=== PATIENT | male | born 1980 | race Hispanic/Latino ===

== ENCOUNTER 2016-11-18 01:50 | Inpatient (IN) | payer MEDICAID, OTHER ==
[2016-11-18] MEDS ORDERED: Morphine 4 mg/ml ISec IVP STA (02:14)
[2016-11-18] MEDS ORDERED: Sodium Chloride 0.9% 1,000 ML IV STA (02:14)
[2016-11-18] MEDS ORDERED: Pantoprazole 40 MG in Sodium Chloride 0.9% 100 ML IV STA (02:14)
--- NOTE | 2016-11-18 02:24 | ED PDOC ---
Arrival/HPI - General Chief Complaint: Abdominal Pain Time Seen by Provider: 11/18/16 01:54 Historian: Patient - History of Present Illness Narrative History of Present Illness (Text): 11/18/16 02:23 Elodia Cooper is a 36 year old male who presents to the emergency department complaining of left upper quadrant abdominal pain associated with nausea for the past few hours. Admits to drinking alcohol last night. Denies fever, chills , headache, dizziness, chest pain, shortness of breath, vomiting, diarrhea, urinary symptoms, or any other complaints at this time. Symptom Onset: Gradual Severity Level: Mild Activities at Onset: Light Past Medical History - Provider Review Nursing Documentation Reviewed: Yes - Past History Past History: Non-Contributing - Infectious Disease Hx of Infectious Diseases: None - Psychiatric Hx Psychophysiologic Disorder: No Hx Depression: No Hx Emotional Abuse: No Hx Physical Abuse: No Hx Substance Use: No - Suicidal Assessment Feels Threatened In Home Enviroment: No Family/Social History - Physician Review Nursing Documentation Reviewed: Yes Family/Social History: No Known Family HX Smoking Status: Heavy Smoker > 10 Cigarettes Daily Hx Alcohol Use: Yes Hx Substance Use: No Hx Substance Use Treatment: No Allergies/Home Meds Allergies/Adverse Reactions: Allergies No Known Allergies Allergy (Verified 06/22/15 23:38) Home Medications: Home Meds Medication Instructions Recorded Confirmed No Known Home Med 11/18/16 11/18/16 Review of Systems - Physician Review All systems were reviewed & negative as marked: Yes - Review of Systems Constitutional: Normal. absent: Fatigue, Fevers Respiratory: Normal. absent: SOB, Cough, Sputum Cardiovascular: Normal. absent: Chest Pain, Palpitations Gastrointestinal: Abdominal Pain, Nausea. absent: Diarrhea, Vomiting Genitourinary Male: Normal Neurological: Normal. absent: Headache, Dizziness Psychiatric: Normal Physical Exam Vital Signs Reviewed: Yes Vital Signs Temp Pulse Resp BP Pulse Ox 11/18/16 05:50 98.2 F 80 20 104/73 98 11/18/16 04:00 82 18 142/84 99 11/18/16 02:05 97.9 F 89 18 138/88 99 11/18/16 01:56 97.9 F 89 18 138/88 99 Temperature: Afebrile Blood Pressure: Normal Pulse: Regular Respiratory Rate: Normal Appearance: Positive for: Well-Appearing, Non-Toxic, Comfortable Pain Distress: None Mental Status: Positive for: Alert and Oriented X 3 - Systems Exam Head: Present: Atraumatic, Normocephalic Pupils: Present: PERRL Conjunctiva: Present: Normal Mouth: Present: Moist Mucous Membranes Respiratory/Chest: Present: Clear to Auscultation, Good Air Exchange. No: Respiratory Distress, Accessory Muscle Use Cardiovascular: Present: Regular Rate and Rhythm, Normal S1, S2. No: Murmurs Abdomen: Present: Tenderness (left upper quadrant tenderness ), Normal Bowel Sounds. No: Distention, Peritoneal Signs, Rebound, Guarding Upper Extremity: Present: Normal Inspection. No: Cyanosis, Edema Lower Extremity: Present: Normal Inspection. No: Edema Neurological: Present: GCS=15, CN II-XII Intact, Speech Normal, Motor Func Grossly Intact, Normal Sensory Function Skin: Present: Warm, Dry, Normal Color. No: Rashes Psychiatric: Present: Alert, Oriented x 3 Medical Decision Making ED Course and Treatment: 11/18/16 02:26 Impression: A 36 year old male who presents to the emergency department complaining of left upper quadrant abdominal pain. Admits to drinking alcohol last night. Plan: -- EKG -- CT abdomen pelvis -- Labs, cardiac enzymes -- Alcohol level -- Morphine -- Protonix -- IV fluids -- Zofran -- Blood culture -- Urinalysis -- Reassess and disposition Progress Notes: 11/18/16 03:27 EKG reviewed by me: NSR @75 bpm. T wave abnormality, consider anterior ischemia. Prolonged QT. CT Abdomen and Pelvis results reviewed FINDINGS: Lower thorax: Minimal atelectasis/scarring. ABDOMEN: Liver: Enlarged, 20 cm. Fatty infiltration. Gallbladder and bile ducts: No calcified stones. No ductal dilation. Pancreas: [id number] stranding/fluid about pancreas. No discrete peripancreatic collection. No ductal dilation. Spleen: No splenomegaly. Adrenals: No mass. Kidneys and ureters: No renal calculi. No hydronephrosis. Stomach and bowel: Underdistention of LEFT colon. No definite mural thickening. Few minimally distended loops of small bowel, likely ileus. Appendix: Normal caliber. No inflammation. PELVIS: Bladder: Unremarkable. No stones. Reproductive: Unremarkable as visualized. ABDOMEN and PELVIS: Intraperitoneal space: No significant fluid collection. No free air. Bones/joints: No acute fracture. Soft tissues: Unremarkable. Vasculature: Minimal atherosclerotic disease of aorta. No aneurysm. Lymph nodes: No pathologically enlarged lymph nodes. IMPRESSION: 1. Acute pancreatitis. 2. Incidental/non-acute findings are described above. 11/18/16 04:26 Case discussed with who is aware and agrees with the plan to admit patient to telemetry for pancreatitis. Accepts pt under hospitalist service. - Lab Interpretations Lab Results: 11/18/16 02:35 11/18/16 02:35 Lab Results 11/18/16 02:35: TSH 3rd Generation 8.6 H 11/18/16 02:35: Phosphorus 4.5, Magnesium 1.7, Triglycerides 277 H, Cholesterol 259 H, LDL Cholesterol Direct 206 H, HDL Cholesterol 32 11/18/16 02:35: Alcohol, Quantitative 267 H 11/18/16 02:35: pO2 77 H, VBG pH 7.40, VBG pCO2 44.0, VBG HCO3 27.3, VBG Total CO2 28.7 H, VBG O2 Sat (Calc) 97.5 H, VBG Base Excess 1.9, VBG Potassium 4.4, Sodium 139.0, Chloride 105.0, Glucose 149 H, Lactate 1.8, FiO2 21.0, Venous Blood Potassium 4.4 11/18/16 02:35: Sodium 140, Chloride 100, Potassium 3.4 L, Carbon Dioxide 28, Anion Gap 15, BUN 6 L, Creatinine 0.7, Est GFR ( Amer) > 60, Est GFR (Non -Af Amer) > 60, Random Glucose 156 H, Calcium 9.0, Total Bilirubin 2.1 H, AST 524 H, ALT 243 H, Alkaline Phosphatase 294 H, Lactate Dehydrogenase 767 H, Total Creatine Kinase 104, Troponin I < 0.01, Total Protein 8.0, Albumin 4.1, Globulin 3.9, Albumin/Globulin Ratio 1.1, Amylase 1594 H, Lipase 89793 H 11/18/16 02:35: PT 12.2 H, INR 1.13 H, APTT 25.4 11/18/16 02:35: WBC 7.5, RBC 4.50, Hgb 15.9, Hct 45.2, MCV 100.4, MCH 35.3 H, MCHC 35.2, RDW 13.1, Plt Count 149, MPV 10.5, Gran % 47.5 L, Lymph % (Auto) 45.3 H, [place] % (Auto) 6.2 H, Eos % (Auto) 0.9 L, Baso % (Auto) 0.1, Gran # 3.57 , Lymph # 3.4, [place] # 0.5, Eos # 0.1, Baso # 0.01 I have reviewed the lab results: Yes - RAD Interpretation Radiology Orders: 11/18/16 02:14 ABD & PELVIS W/O PO OR IV CONT [CT] Stat Truck Manager: Radiologist - EKG Interpretation Interpreted by ED Physician: Yes Type: 12 lead EKG - Medication Orders Current Medication Orders: Acetaminophen (Tylenol 325mg Tab) 650 mg PO Q6H PRN PRN Reason: Fever >100.4 F Last Admin: 11/18/16 19:49 Dose: 650 mg Famotidine (Pepcid 20mg/50ml Premix) 20 mg in 50 mls @ 100 mls/hr IV Q12 FÉLIX Last Admin: 11/18/16 10:42 Dose: 100 mls/hr Lactated Ringer's (Lactated Ringer's) 1,000 mls @ 125 mls/hr IV .Q8H FÉLIX Stop: 11/18/16 21:00 Last Admin: 11/18/16 19:49 Dose: 125 mls/hr Lorazepam (Ativan) 4 mg IVP Q4H PRN; Protocol PRN Reason: Withdrawal Pantoprazole Sodium (Protonix Inj) 40 mg IVP DAILY FÉLIX Last Admin: 11/18/16 10:43 Dose: 40 mg Thiamine HCl (Vitamin B1 Inj) 100 mg IV DAILY FÉLIX Last Admin: 11/18/16 10:43 Dose: 100 mg Vitamin B Complex/Vit C/Folic Acid (Nephro-Sanjuanita) 1 tab PO DAILY FÉLIX Last Admin: 11/18/16 10:41 Dose: 1 tab Discontinued Medications Pantoprazole Sodium 40 mg/ (Sodium Chloride) 100 mls @ 400 mls/hr IV STAT STA Stop: 11/18/16 02:28 Last Admin: 11/18/16 03:55 Dose: 400 mls/hr Sodium Chloride (Sodium Chloride 0.9%) 1,000 mls @ 100 mls/hr IV .Q10H STA Stop: 11/18/16 12:13 Last Admin: 11/18/16 02:53 Dose: 100 mls/hr Potassium Chloride (Potassium Chloride 20 Meq/100 Ml) 20 meq in 100 mls @ 50 mls/hr IVPB ONCE ONE Stop: 11/18/16 05:23 Last Admin: 11/18/16 04:07 Dose: 50 mls/hr Lactated Ringer's (Lactated Ringer's) 1,000 mls @ 300 mls/hr IV .Q3H20M FÉLIX Stop: 11/18/16 10:00 Last Admin: 11/18/16 17:25 Dose: Potassium Chloride (Potassium Chloride 20 Meq/100 Ml) 20 meq in 100 mls @ 50 mls/hr IVPB ONCE ONE Stop: 11/18/16 07:36 Last Admin: 11/18/16 06:26 Dose: 50 mls/hr Magnesium Sulfate/Dextrose (Magnesium Sulfate 1 Gm/100 Ml D5w) 1 gm in 100 mls @ 100 mls/hr IVPB ONCE ONE Stop: 11/18/16 06:40 Last Admin: 11/18/16 13:02 Dose: 100 mls/hr Lorazepam (Ativan) 2 mg PO Q4H [facility] PRN Reason: Protocol Last Admin: 11/18/16 04:21 Dose: 2 mg Re-Assess: Reassess Psych Meds Document 11/18/16 05:21 TERA (Rec: 11/18/16 10:44 TERA [id number]) Reassess Psych Med Effective Morphine Sulfate (Morphine) 4 mg IVP STAT STA Stop: 11/18/16 02:15 Last Admin: 11/18/16 02:52 Dose: 4 mg Re-Assess: MAR Pain Assessment Document 11/18/16 03:52 TERA (Rec: 11/18/16 14:00 TERA [id number]) Pain Reassessment Is this a pain reassessment? Yes Sleep Is patient sleeping during reassessment? No Presence of Pain Presence of Pain No Ondansetron HCl (Zofran Inj) 4 mg IVP STAT STA Stop: 11/18/16 02:15 Last Admin: 11/18/16 02:53 Dose: 4 mg Pneumococcal Polyvalent Vaccine (Pneumovax 23 Vaccine) 0.5 ml IM .ONCE ONE Stop: 11/18/16 12:50 Thiamine HCl (Vitamin B1 Inj) 100 mg IM STAT STA Stop: 11/18/16 03:44 Last Admin: 11/18/16 04:07 Dose: 100 mg - Danuta Statement The provider has reviewed the documentation as recorded by the Danuta Ramirez Provider Attestation: All medical record entries made by the Danuta were at my direction and personally dictated by me. I have reviewed the chart and agree that the record accurately reflects my personal performance of the history, physical exam, medical decision making, and the department course for this patient. I have also personally directed, reviewed, and agree with the discharge instructions and disposition. Disposition/Present on Arrival - Present on Arrival Any Indicators Present on Arrival: No History of DVT/PE: No History of Uncontrolled Diabetes: No Urinary Catheter: No History of Decub. Ulcer: No History Surgical Site Infection Following: None - Disposition Have Diagnosis and Disposition been Completed?: Yes Diagnosis: Alcohol abuse, Pancreatitis, acute Disposition: HOSPITALIZED Disposition Time: 03:35 Condition: FAIR
[2016-11-18 02:45] LABS: ADD MANUAL DIFF? NO
[2016-11-18 02:54] LABS: BASO # 0.01 K/mm3 (0.0-2.0); BASO % 0.1 % (0.0-3.0); EOS # 0.1 (0.0-0.7); EOS % 0.9 % (1.5-5.0); GRAN # 3.57 (1.4-6.5); GRAN % 47.5 % (50.0-68.0); HEMATOCRIT 45.2 % (42.0-52.0); LYMPH # 3.4 (1.2-3.4); LYMPH % 45.3 % (22.0-35.0); MEAN CELL VOLUME 100.4 fL (80.0-105.0); MEAN CORPUSCULAR HEMOGLOBIN 35.3 pg (25.0-35.0); MEAN CORPUSCULAR HGB CONC 35.2 g/dl (31.0-37.0); MEAN PLATELET VOLUME 10.5 fl (7.0-11.0); MONO # 0.5 (0.1-0.6); MONO % 6.2 % (1.0-6.0); PLATELET COUNT 149 10^3/uL (120.0-450.0); RED CELL DISTRIBUTION WIDTH 13.1 % (11.5-14.5); WHITE BLOOD COUNT 7.5 10^3/ul (4.5-11.0)
[2016-11-18 02:57] LABS: VENOUS BLOOD GAS BASE EXCESS 1.9 mmol/L (0.0-2.0)
[2016-11-18 03:05] LABS: INR 1.13 (0.93-1.08); PARTIAL THROMBOPLASTIN TIME 25.4 Seconds (23.7-30.8)
[2016-11-18 03:11] LABS: ALB/GLOB RATIO 1.1 (1.1-1.8); ALKALINE PHOSPHATASE 294 U/L (38-133); ALT/SGPT 243 U/L (7-56); AST/SGOT 524 U/L (15-59); BILIRUBIN,TOTAL 2.1 mg/dL (0.2-1.3); BLOOD UREA NITROGEN 6 mg/dL (7-21); CARBON DIOXIDE 28 mmol/L (21-33); CHLORIDE 100 mmol/L (98-107); GFR AFRICAN-AMERICAN > 60; GLUCOSE,RANDOM 156 mg/dL (70-110); POTASSIUM 3.4 mmol/L (3.6-5.0); SODIUM 140 mmol/L (132-148)
[2016-11-18 03:23] LABS: AMYLASE 1594 U/L (35-125); TROPONIN I < 0.01 ng/mL
--- NOTE | 2016-11-18 03:32 | CT ---
EXAM: CT Abdomen and Pelvis Without Intravenous Contrast CLINICAL HISTORY: 36 years old, male; Pain; Abdominal pain; Generalized; Additional info: Abd pain TECHNIQUE: Axial computed tomography images of the abdomen and pelvis without intravenous contrast. This CT exam was performed using one or more of the following dose reduction techniques: automated exposure control, adjustment of the mA and/or kV according to patient size, and/or use of iterative reconstruction technique. Coronal and sagittal reformatted images were created and reviewed. COMPARISON: No relevant prior studies available. FINDINGS: Lower thorax: Minimal atelectasis/scarring. ABDOMEN: Liver: Enlarged, 20 cm. Fatty infiltration. Gallbladder and bile ducts: No calcified stones. No ductal dilation. Pancreas: [id number] stranding/fluid about pancreas. No discrete peripancreatic collection. No ductal dilation. Spleen: No splenomegaly. Adrenals: No mass. Kidneys and ureters: No renal calculi. No hydronephrosis. Stomach and bowel: Underdistention of LEFT colon. No definite mural thickening. Few minimally distended loops of small bowel, likely ileus. Appendix: Normal caliber. No inflammation. PELVIS: Bladder: Unremarkable. No stones. Reproductive: Unremarkable as visualized. ABDOMEN and PELVIS: Intraperitoneal space: No significant fluid collection. No free air. Bones/joints: No acute fracture. Soft tissues: Unremarkable. Vasculature: Minimal atherosclerotic disease of aorta. No aneurysm. Lymph nodes: No pathologically enlarged lymph nodes. IMPRESSION: 1. Acute pancreatitis. 2. Incidental/non-acute findings are described above.
[2016-11-18 03:43] LABS: LIPASE 15899 U/L (23-300)
[2016-11-18] MEDS ORDERED: Thiamine 100 mg/ml Inj IM STA (03:43)
--- NOTE | 2016-11-18 04:04 | CP.PCM.HP ---
<CesarZurdo azar - Last Filed: 11/18/16 05:42> History of Present Illness - History of Present Illness History of Present Illness: This patient is a 36yo La[place] M w/ no PMhx (hasn't been to a doctor in many years) who is presenting to the hospital with a 1d history of acute abdominal pain. The pain started after he drank 500ml of vodka; which he has been drinking this amount for the past 4 years. The patient states he has never had withdrawal seizures or shakes when he hasn't drank, although he cannot remember a day he has not drank in the past 4 years either. He denies fevers/chills, DURBIN, CP, dysuria/freq/urg, or lower extremity pain/swelling. Admits to abdominal pain , nausea. No vomiting. no diarrhea. FamHx: denies Social: Daily drinker 500ml vodka, 1-2 packs per day since 15yrs Surgeries: denies Allergies: denies Meds: Denies In the ED a cat scan was done that showed acute pancreatitis; amylase was 1500. He was bolused 1L NS and kept NPO. He will be admitted to telemetry. Present on Admission - Present on Admission Any Indicators Present on Admission: No History of DVT/PE: No History of Uncontrolled Diabetes: No Urinary Catheter: No Decubitus Ulcer Present: No Review of Systems - Review of Systems All systems: reviewed and no additional remarkable complaints except Past Patient History - Infectious Disease Hx of Infectious Diseases: None - Past Social History Smoking Status: Heavy Smoker > 10 Cigarettes Daily - PSYCHIATRIC Hx Psychophysiologic Disorder: No Hx Depression: No Hx Emotional Abuse: No Hx Physical Abuse: No Hx Substance Use: No - SURGICAL HISTORY Hx Surgeries: No Meds Allergies/Adverse Reactions: Allergies Allergy/AdvReac Type Severity Reaction Status Date / Time No Known Allergies Allergy Verified 06/22/15 23:38 Physical Exam - Constitutional Additional comments: smells of alcohol, unkempt, answering questions appropriately - Head Exam Head Exam: ATRAUMATIC - Eye Exam Eye Exam: Conjunctival injection, EOMI - ENT Exam ENT Exam: Mucous Membranes Moist - Neck Exam Neck exam: Positive for: Full Rom. Negative for: Lymphadenopathy - Respiratory Exam Respiratory Exam: Clear to Auscultation Bilateral, NORMAL BREATHING PATTERN. absent: Rales, Rhonchi, Wheezes - Cardiovascular Exam Cardiovascular Exam: REGULAR RHYTHM, +S1, +S2 - GI/Abdominal Exam GI & Abdominal Exam: Normal Bowel Sounds, Soft, Tenderness (in the epigastrium) . absent: Organomegaly, Pulsatile Mass - Extremities Exam Extremities exam: Negative for: calf tenderness - Back Exam Back exam: NORMAL INSPECTION. absent: CVA tenderness (L), CVA tenderness (R) - Neurological Exam Neurological exam: Alert, Oriented x3 - Psychiatric Exam Psychiatric exam: Normal Affect, Normal Mood - Skin Skin Exam: Dry Results - Vital Signs Recent Vital Signs: Last Vital Signs Temp 97.9 F 11/18/16 02:05 Pulse 89 11/18/16 02:05 Resp 18 11/18/16 02:05 BP 138/88 11/18/16 02:05 Pulse Ox 99 11/18/16 02:05 - Labs Result Diagrams: 11/18/16 02:35 11/18/16 02:35 Labs: Laboratory Results - last 24 hr 11/18/16 11/18/16 11/18/16 02:35 02:35 02:35 WBC 7.5 RBC 4.50 Hgb 15.9 Hct 45.2 MCV 100.4 MCH 35.3 H MCHC 35.2 RDW 13.1 Plt Count 149 MPV 10.5 Gran % 47.5 L Lymph % (Auto) 45.3 H [place] % (Auto) 6.2 H Eos % (Auto) 0.9 L Baso % (Auto) 0.1 Gran # 3.57 Lymph # 3.4 [place] # 0.5 Eos # 0.1 Baso # 0.01 PT 12.2 H INR 1.13 H APTT 25.4 pO2 VBG pH VBG pCO2 VBG HCO3 VBG Total CO2 VBG O2 Sat (Calc) VBG Base Excess VBG Potassium Sodium 140 Chloride 100 Glucose Lactate FiO2 Potassium 3.4 L Carbon Dioxide 28 Anion Gap 15 BUN 6 L Creatinine 0.7 Est GFR ( Amer) > 60 Est GFR (Non-Af Amer) > 60 Random Glucose 156 H Calcium 9.0 Total Bilirubin 2.1 H AST 524 H ALT 243 H Alkaline Phosphatase 294 H Lactate Dehydrogenase 767 H Total Creatine Kinase 104 Troponin I < 0.01 Total Protein 8.0 Albumin 4.1 Globulin 3.9 Albumin/Globulin Ratio 1.1 Amylase 1594 H Lipase 60447 H Venous Blood Potassium Alcohol, Quantitative 06/07/17 06/07/17 02:35 02:35 WBC RBC Hgb Hct MCV MCH MCHC RDW Plt Count MPV Gran % Lymph % (Auto) [place] % (Auto) Eos % (Auto) Baso % (Auto) Gran # Lymph # [place] # Eos # Baso # PT INR APTT pO2 77 H VBG pH 7.40 VBG pCO2 44.0 VBG HCO3 27.3 VBG Total CO2 28.7 H VBG O2 Sat (Calc) 97.5 H VBG Base Excess 1.9 VBG Potassium 4.4 Sodium 139.0 Chloride 105.0 Glucose 149 H Lactate 1.8 FiO2 21.0 Potassium Carbon Dioxide Anion Gap BUN Creatinine Est GFR ( Amer) Est GFR (Non-Af Amer) Random Glucose Calcium Total Bilirubin AST ALT Alkaline Phosphatase Lactate Dehydrogenase Total Creatine Kinase Troponin I Total Protein Albumin Globulin Albumin/Globulin Ratio Amylase Lipase Venous Blood Potassium 4.4 Alcohol, Quantitative 267 H Assessment & Plan - Assessment and Plan (Free Text) Assessment: 36yo M admitted for Pancreatitis 2/2 EtOH consumption Pancreatitis 2/2 to EtOH consumption -NPO -LR at 300ml until 10am; 125ml/hr afterwords -VSS; no signs of withdrawal at this point -EtOH level 270; Lipase 15,000 -f/u abdominal ultrasound Inevitable EtOH withdrawal -CIWA protocol -Ativan 4mg Q4H PRN and FÉLIX IV for CIWA -Thiamine/Folate/Multivitamin daily Proph -Protonix -SCDs Case Discussed and seen with Dr. Mina Pal PGY1 Night Float Decision To Admit - Pt Status Changed To: Hospital Disposition Of: Inpatient Admission - Admit Certification Admit to Inpatient:: After my assessment, the patient will require hospitalization for at least two midnights. This is because of the severity of symptoms shown, intensity of services needed, and/or the medical risk in this patient being treated as an outpatient. - . Bed Request Type: Telemetry Admitting Physician: Felipe Enriquez <Felipe Enriquez - Last Filed: 11/30/16 20:48> Results - Vital Signs Recent Vital Signs: Last Vital Signs Temp 100 F H 11/20/16 08:16 Pulse 107 H 11/20/16 08:16 Resp 20 06/09/17 08:16 BP 139/103 H 11/20/16 08:16 Pulse Ox 96 11/20/16 08:16 - Labs Result Diagrams: 11/20/16 06:30 11/20/16 05:30 Attending/Attestation - Attestation I have personally seen and examined this patient.: Yes I have fully participated in the care of the patient.: Yes I have reviewed all pertinent clinical information: Yes
[2016-11-18] MEDS: Lactated Ringer's 1,000 ML IV SCH ×4 (04:08→19:49)
[2016-11-18 04:50] LABS: MAGNESIUM 1.7 mg/dL (1.7-2.2); PHOSPHOROUS 4.5 mg/dL (2.5-4.5)
[2016-11-18] MEDS ORDERED: Magnesium Sulfate 1 gm in D5W 1 GM/100 ML BAG IVPB ONE (05:41)
--- NOTE | 2016-11-18 08:33 | RAD ---
HISTORY: cp COMPARISON: No prior. FINDINGS: LUNGS: No active pulmonary disease. There is deformity of the left ribs consistent with prior left thoracotomy PLEURA: No interval significant pleural effusion identified, no pneumothorax apparent. The right hemidiaphragm is asymmetrically elevated CARDIOVASCULAR: Top-normal heart size OSSEOUS STRUCTURES: No significant abnormalities. VISUALIZED UPPER ABDOMEN: Normal. OTHER FINDINGS: None. IMPRESSION: Left rib cage postsurgical changes- prior thoracotomy inferred -correlate clinically in this 36-year-old patient. No acute cardiopulmonary pathology appreciated
[2016-11-18] MEDS: Multivitamin Vitamin B Complex (Nephro-Vite) Tab PO SCH (10:41)
[2016-11-18] MEDS: Famotidine 20mg/50ml 20 MG/50 ML BAG IV SCH ×2 (10:42→21:09)
[2016-11-18] MEDS: Thiamine 100 mg/ml Inj IV SCH (10:43)
--- NOTE | 2016-11-18 11:32 | US ---
HISTORY: abdominal pain COMPARISON: None. TECHNIQUE: Sonographic evaluation of the abdomen. FINDINGS: LIVER: Measures 21 by 12 x 13 cm. Diffuse increased echogenicity of the liver parenchyma. No mass. No intrahepatic bile duct dilatation. GALLBLADDER: Unremarkable. No gallstones. COMMON BILE DUCT: Measures 6 mm. No stones. No dilatation. PANCREAS: The head and body are nonvisualized. Prominent bowel gas apparent unremarkable a pancreatic tail-small segment RIGHT KIDNEY: Measures 12.5 x 5.6 x 5.9cm. Normal echogenicity. No calculus, mass, or hydronephrosis. LEFT KIDNEY: Measures 11.9 x 6.0 x 5.2cm. Normal echogenicity. No calculus, mass, or hydronephrosis. SPLEEN: Top normal splenic size 14.2 cm x 6.3 x 5.5 cm . No mass. AORTA: Not visualized -obscuring bowel gas IVC: Not visualized obscuring bowel gas OTHER FINDINGS: None. IMPRESSION: Hepatomegaly with diffuse fatty infiltration. No liver lesions or dilated ducts appreciated. Nonvisualized pancreatic head and body. Nonvisualized aorta and IVC. Prominent obscuring bowel gas
[2016-11-18 12:19] LABS: ALB/GLOB RATIO 1.1 (1.1-1.8); ALKALINE PHOSPHATASE 274 U/L (38-133); ALT/SGPT 224 U/L (7-56); AST/SGOT 386 U/L (15-59); BILIRUBIN,TOTAL 2.4 mg/dL (0.2-1.3); BLOOD UREA NITROGEN 5 mg/dL (7-21); CALCIUM 8.9 mg/dL (8.4-10.5); CARBON DIOXIDE 23 mmol/L (21-33); CHLORIDE 103 mmol/L (95-110); GFR AFRICAN-AMERICAN > 60; GLUCOSE,RANDOM 128 mg/dL (70-110); MAGNESIUM 1.2 mg/dL (1.7-2.2); POTASSIUM 4.2 mmol/L (3.6-5.0); SODIUM 138 mmol/L (132-148); TOTAL PROTEIN 7.9 g/dL (5.8-8.3)
[2016-11-18 12:28] LABS: HEMATOCRIT 44.5 % (42.0-52.0); MEAN CELL VOLUME 101.1 fL (80.0-105.0); MEAN CORPUSCULAR HGB CONC 34.6 g/dl (31.0-37.0); MEAN PLATELET VOLUME 10.7 fl (7.0-11.0); RED CELL DISTRIBUTION WIDTH 13.1 % (11.5-14.5); WHITE BLOOD COUNT 9.1 10^3/ul (4.5-11.0)
[2016-11-18 12:48] VITALS: BMI 26.4
[2016-11-18] MEDS ORDERED: Pneumococcal 23-Valent Vaccine IM ONE (12:49)
--- NOTE | 2016-11-18 15:28 | CARD ---
APPROVED REPORT EKG Measurement Heart [id number] <Conclusion> Normal sinus rhythm T wave abnormality, consider anterior ischemia Prolonged QT
[2016-11-18] MEDS ORDERED: Morphine 2 mg/ml ISec IVP ONE (23:27)
[2016-11-19 05:14] VITALS: RESP 20
[2016-11-19 08:48] LABS: ADD MANUAL DIFF? NO
[2016-11-19 08:53] LABS: EOS % 0.1 % (1.5-5.0); GRAN % 80.4 % (50.0-68.0); HEMATOCRIT 45.2 % (42.0-52.0); LYMPH # 1.1 (1.2-3.4); LYMPH % 11.4 % (22.0-35.0); MEAN CELL VOLUME 100.4 fL (80.0-105.0); MEAN CORPUSCULAR HEMOGLOBIN 34.7 pg (25.0-35.0); MEAN CORPUSCULAR HGB CONC 34.5 g/dl (31.0-37.0); MEAN PLATELET VOLUME 11.2 fl (7.0-11.0); MONO # 0.8 (0.1-0.6); MONO % 8.1 % (1.0-6.0); PLATELET COUNT 117 10^3/uL (120.0-450.0); RED CELL DISTRIBUTION WIDTH 12.9 % (11.5-14.5)
[2016-11-19] MEDS: Thiamine 100 mg/ml Inj IV SCH (09:28)
[2016-11-19] MEDS: Famotidine 20mg/50ml 20 MG/50 ML BAG IV SCH ×2 (09:29→22:54)
[2016-11-19] MEDS: Multivitamin Vitamin B Complex (Nephro-Vite) Tab PO SCH (09:30)
[2016-11-19 09:46] LABS: ALB/GLOB RATIO 1.1 (1.1-1.8); ALKALINE PHOSPHATASE 240 U/L (38-133); ALT/SGPT 144 U/L (7-56); AST/SGOT 181 U/L (15-59); BILIRUBIN,TOTAL 5.1 mg/dL (0.2-1.3); BLOOD UREA NITROGEN 6 mg/dL (7-21); CALCIUM 9.2 mg/dL (8.4-10.5); CARBON DIOXIDE 27 mmol/L (21-33); CHLORIDE 96 mmol/L (95-110); GFR AFRICAN-AMERICAN > 60; GLUCOSE,RANDOM 115 mg/dL (70-110); MAGNESIUM 1.4 mg/dL (1.7-2.2); PHOSPHOROUS 2.9 mg/dL (2.5-4.5); POTASSIUM 3.8 mmol/L (3.6-5.0); SODIUM 132 mmol/L (132-148); TOTAL PROTEIN 7.5 g/dL (5.8-8.3)
[2016-11-19] MEDS ORDERED: POLYETHYLENE GLYCOL 3350 17 GM/Dose PACKET PO ONE (12:32)
[2016-11-19 14:15] LABS: URINE BILIRUBIN LARGE (NEGATIVE); URINE BLOOD TRACE-LYSED (NEGATIVE); URINE GLUCOSE (UA) NEGATIVE (NEGATIVE); URINE KETONE 15 mg/dL (NEGATIVE); URINE LEUKOCYTE ESTERASE NEGATIVE Leu/uL (NEGATIVE); URINE PROTEIN 100 mg/dL (<30 mg/dL); URINE UROBILINOGEN >=8.0 E.U./dL (<1 E.U./dL)
[2016-11-19 14:16] LABS: URINE APPEARANCE SL CLOUDY (CLEAR); URINE COLOR BROWN (YELLOW)
[2016-11-19 14:20] LABS: URINE RBC 0 - 2 /hpf (0-2); URINE WBC NEGATIVE /hpf (0-6)
--- NOTE | 2016-11-19 15:33 | CP.PCM.PN ---
<RejiJah - Last Filed: 11/19/16 15:35> Subjective - Date & Time of Evaluation Date of Evaluation: 11/19/16 Time of Evaluation: 11:00 - Subjective Subjective: Pt was seen and examined at bedside. No acute complaints at this time. He denies abdominal pains, he is tolerating po intake and would like to eat regular food. He also noted mild lower abdominal pain, suprapubic in nature localized non-radiating. Pt otherwise has no complaints. Pt denied fever, chills , sob, chest pains, abdominal pains, n/v/d/c or urinary symptoms. Objective - Vital Signs/Intake and Output Vital Signs (last 24 hours): Temp Pulse Resp BP Pulse Ox 97.8 F 72 20 127/90 97 11/19/16 12:00 11/19/16 12:00 11/19/16 12:00 11/19/16 12:00 11/19/16 05:13 Intake and Output: 11/19/16 11/19/16 06:59 18:59 Intake Total 2275 Output Total 2250 Balance 25 - Medications Medications: Current Medications Acetaminophen (Tylenol 325mg Tab) 650 mg PO Q6H PRN PRN Reason: Fever >100.4 F Last Admin: 11/19/16 04:03 Dose: 650 mg Docusate Sodium (Colace) 100 mg PO BID FÉLIX Famotidine (Pepcid 20mg/50ml Premix) 20 mg in 50 mls @ 100 mls/hr IV Q12 FÉLIX Last Admin: 11/19/16 09:29 Dose: 100 mls/hr Lorazepam (Ativan) 4 mg IVP Q4H PRN; Protocol PRN Reason: Withdrawal Pantoprazole Sodium (Protonix Inj) 40 mg IVP DAILY FÉLIX Last Admin: 11/19/16 09:29 Dose: 40 mg Thiamine HCl (Vitamin B1 Inj) 100 mg IV DAILY FÉLIX Last Admin: 11/19/16 09:28 Dose: 100 mg Vitamin B Complex/Vit C/Folic Acid (Nephro-Sanjuanita) 1 tab PO DAILY FÉLIX Last Admin: 11/19/16 09:30 Dose: 1 tab - Labs Labs: 11/19/16 08:10 11/19/16 08:00 PT 12.2 Seconds (9.9-11.8) H 11/18/16 02:35 INR 1.13 (0.93-1.08) H 11/18/16 02:35 APTT 25.4 Seconds (23.7-30.8) 11/18/16 02:35 - Constitutional Appears: No Acute Distress - Head Exam Head Exam: ATRAUMATIC, NORMAL INSPECTION, NORMOCEPHALIC - Eye Exam Eye Exam: EOMI, Normal appearance, PERRL Pupil Exam: NORMAL ACCOMODATION, PERRL - ENT Exam ENT Exam: Mucous Membranes Moist, Normal Exam - Neck Exam Neck Exam: Full ROM, Normal Inspection. absent: Lymphadenopathy - Respiratory Exam Respiratory Exam: Clear to Ausculation Bilateral, NORMAL BREATHING PATTERN - Cardiovascular Exam Cardiovascular Exam: REGULAR RHYTHM, +S1, +S2. absent: Murmur - GI/Abdominal Exam GI & Abdominal Exam: Soft, Tenderness, Normal Bowel Sounds Additional comments: suprapubic - Extremities Exam Extremities Exam: Full ROM, Normal Capillary Refill, Normal Inspection. absent : Joint Swelling, Pedal Edema - Back Exam Back Exam: NORMAL INSPECTION - Neurological Exam Neurological Exam: Alert, Awake, CN II-XII Intact, Normal Gait, Oriented x3 - Psychiatric Exam Psychiatric exam: Normal Affect, Normal Mood - Skin Skin Exam: Dry, Intact, Normal Color, Warm Assessment and Plan - Assessment and Plan (Free Text) Assessment: 36 M admitted for Pancreatitis 2/2 EtOH consumption 1. Pancreatitis 2/2 to EtOH consumption - aggressive fluids and bowel rest upon admission, now no longer experiencing pain - Tolerated CLD will advance as tolerated 2. ETOH abuse -VSS; no signs of withdrawal at this point -EtOH level 270; Lipase 15,000 -f/u abdominal ultrasound -CIWA protocol -Ativan 4mg Q4H PRN and FÉLIX IV for CIWA, pt has not required any ativan so far -Thiamine/Folate/Multivitamin daily 3. suprapubic tenderness - no dysuria - UA to r/o UTI - fu results Proph -Protonix -SCDs seen reviewed and discussed with attending <Lior Solis - Last Filed: 11/20/16 17:27> Objective - Vital Signs/Intake and Output Vital Signs (last 24 hours): Temp Pulse Resp BP Pulse Ox 100 F H 107 H 20 139/103 H 96 11/20/16 08:16 11/20/16 08:16 11/20/16 08:16 11/20/16 08:16 11/20/16 08:16 Intake and Output: 11/20/16 11/20/16 06:59 18:59 Intake Total 0 925 Balance 0 925 - Labs Labs: 11/20/16 06:30 11/20/16 05:30 PT 12.2 Seconds (9.9-11.8) H 11/18/16 02:35 INR 1.13 (0.93-1.08) H 11/18/16 02:35 APTT 25.4 Seconds (23.7-30.8) 11/18/16 02:35 Attending/Attestation - Attestation I have personally seen and examined this patient.: Yes I have fully participated in the care of the patient.: Yes I have reviewed all pertinent clinical information, including history, physical exam and plan: Yes Notes (Text): I have seen and examined patient at bedside. This is 36 year old male with history of alcohol abuse who got admitted for pancreatitis most likely alcohol induced. Abdominal ultrasound pending. Lipase is elevated. TG level pending. Abdominal pain is slightly better now. Will start clear liquid diet. Start ativan prn for withdrawal. Complains of suprapubuc pain. Will order urinalysis. Upon discharge patient will follow up in [facility] clinic. Dr Lior Solis.
[2016-11-20 06:56] LABS: ADD MANUAL DIFF? NO
[2016-11-20 07:11] LABS: BASO # 0.01 K/mm3 (0.0-2.0); BASO % 0.1 % (0.0-3.0); EOS % 0.1 % (1.5-5.0); GRAN # 7.69 (1.4-6.5); GRAN % 73.6 % (50.0-68.0); HEMATOCRIT 43.2 % (42.0-52.0); LYMPH # 1.6 (1.2-3.4); LYMPH % 15.3 % (22.0-35.0); MEAN CELL VOLUME 100.5 fL (80.0-105.0); MEAN CORPUSCULAR HEMOGLOBIN 35.6 pg (25.0-35.0); MEAN CORPUSCULAR HGB CONC 35.4 g/dl (31.0-37.0); MEAN PLATELET VOLUME 11.8 fl (7.0-11.0); MONO # 1.1 (0.1-0.6); MONO % 10.9 % (1.0-6.0); PLATELET COUNT 121 10^3/uL (120.0-450.0); WHITE BLOOD COUNT 10.5 10^3/ul (4.5-11.0)
[2016-11-20 07:43] LABS: ALKALINE PHOSPHATASE 218 U/L (38-133); ALT/SGPT 109 U/L (7-56); AST/SGOT 113 U/L (15-59); BILIRUBIN,TOTAL 5.9 mg/dL (0.2-1.3); BLOOD UREA NITROGEN 9 mg/dL (7-21); CALCIUM 9.4 mg/dL (8.4-10.5); CARBON DIOXIDE 27 mmol/L (21-33); CHLORIDE 93 mmol/L (95-110); GFR AFRICAN-AMERICAN > 60; GLUCOSE,RANDOM 104 mg/dL (70-110); MAGNESIUM 1.5 mg/dL (1.7-2.2); PHOSPHOROUS 3.3 mg/dL (2.5-4.5); POTASSIUM 3.5 mmol/L (3.6-5.0); SODIUM 131 mmol/L (132-148); TOTAL PROTEIN 7.6 g/dL (5.8-8.3)
[2016-11-20 08:17] VITALS: BP 139/103; PULSE 107; TEMP 100; O2SAT 96
[2016-11-20] MEDS ORDERED: Potassium Chloride 20 mEq ER Tab PO STA (09:55)
[2016-11-20] MEDS ORDERED: Magnesium Oxide 400 mg Tab UD PO SCH (10:00)
[2016-11-20] MEDS ORDERED: POLYETHYLENE GLYCOL 3350 17 GM/Dose PACKET PO SCH (10:00)
[2016-11-20] MEDS ORDERED: Simethicone 40 mg/0.6 ml Liquid (30 ml) PO SCH (10:00)
[2016-11-20] MEDS: Multivitamin Vitamin B Complex (Nephro-Vite) Tab PO SCH (10:16)
[2016-11-20] MEDS: Famotidine 20mg/50ml 20 MG/50 ML BAG IV SCH (10:22)
[2016-11-20] MEDS: Thiamine 100 mg/ml Inj IV SCH (10:24)
== END 2016-11-20 16:48 | disposition home or self-care (01) | DRG 439 ==
LOC: ED 01:50 → ERH 03:34 → 2RSO 06:00 → 3RNO 11-19 22:13
PROVIDERS: ADMIT Hospitalist; ATTEND Hospitalist
DX: K85.20 Alcohol induced acute pancreatitis without necrosis or infection (principal); F10.239 Alcohol dependence with withdrawal, unspecified; Y90.8 Blood alcohol level of 240 mg/100 ml or more; F17.210 Nicotine dependence, cigarettes, uncomplicated

== ENCOUNTER 2017-08-06 20:22 | Inpatient (IN) | payer MEDICAID, OTHER ==
[2017-08-06] MEDS ORDERED: Sodium Chloride 0.9% 1,000 ML IV STA (20:38)
[2017-08-06 20:39] VITALS: BMI 24.2
[2017-08-06 21:10] LABS: BASO # 0.01 K/mm3 (0.0-2.0); BASO % 0.1 % (0.0-3.0); EOS % 0.3 % (1.5-5.0); GRAN # 8.26 (1.4-6.5); GRAN % 70.8 % (50.0-68.0); HEMOGLOBIN 17.8 g/dL (14.0-18.0); LYMPH # 2.5 (1.2-3.4); LYMPH % 21.8 % (22.0-35.0); MEAN CELL VOLUME 98.2 fl (80.0-105.0); MEAN CORPUSCULAR HGB CONC 35.7 g/dl (31.0-37.0); MEAN PLATELET VOLUME 10.3 fl (7.0-11.0); MONO # 0.8 (0.1-0.6); RBC 5.08 10^6/uL (3.5-6.1); RED CELL DISTRIBUTION WIDTH 13.1 % (11.5-14.5); WHITE BLOOD COUNT 11.7 10^3/ul (4.5-11.0)
[2017-08-06 21:19] LABS: ALB/GLOB RATIO 1.1 (1.1-1.8); ALBUMIN 4.5 g/dL (3.0-4.8); ALT/SGPT 188 U/L (7-56); AMYLASE 635 U/L (35-125); AST/SGOT 251 U/L (17-59); BLOOD UREA NITROGEN 9 mg/dL (7-21); CALCIUM 9.8 mg/dL (8.4-10.5); GFR AFRICAN-AMERICAN > 60; GFR NON-AFRICAN AMERICAN > 60
[2017-08-06 21:20] LABS: INR 1.24 (0.93-1.08); PARTIAL THROMBOPLASTIN TIME 33.2 Seconds (25.1-36.5); PROTHROMBIN TIME 14.2 SECONDS (9.4-12.5)
[2017-08-06] MEDS ORDERED: Morphine 2 mg/ml ISec IVP STA (21:33)
[2017-08-06 21:36] LABS: TROPONIN I < 0.01 ng/mL
[2017-08-06 21:53] LABS: LIPASE 3812 U/L (23-300)
--- NOTE | 2017-08-06 22:06 | ED PDOC ---
Arrival/HPI - General Chief Complaint: Abdominal Pain Time Seen by Provider: 08/06/17 20:29 Historian: Patient - History of Present Illness Narrative History of Present Illness (Text): 08/06/17 20:35 Elodia Cooper is a 37 year old male, whose past medical history includes pancreatitis and alcohol abuse, who presents to the Emergency department complaining of abdominal pain. Patient states he has been experiencing left- sided abdominal pain with associated nausea and vomiting today. Patient states he drinks alcohol on a daily basis. Patient denies any fever, chills, chest pain , shortness of breath, diarrhea, urinary symptoms, back pain, neck pain, headache, dizziness, or any other complaints. Time/Duration: Other (today) Symptom Onset: Gradual Symptom Course: Unchanged Activities at Onset: Light Context: Home Past Medical History - Provider Review Nursing Documentation Reviewed: Yes - Past History Past History: Non-Contributing - Infectious Disease Hx of Infectious Diseases: None - Integumentary Other/Comment: scratch ponce ble - Musculoskeletal/Rheumatological Hx Falls: No - Gastrointestinal Hx Gastrointestinal Disorders: Yes (gi bleed) - Psychiatric Hx Psychophysiologic Disorder: No Hx Depression: No Hx Emotional Abuse: No Hx Physical Abuse: No Hx Substance Use: No - Suicidal Assessment Feels Threatened In Home Enviroment: No Family/Social History - Physician Review Nursing Documentation Reviewed: Yes Family/Social History: Unknown Family HX Smoking Status: Heavy Smoker > 10 Cigarettes Daily Hx Alcohol Use: Yes Frequency of alcohol use: Daily Hx Substance Use: No Hx Substance Use Treatment: No Allergies/Home Meds Allergies/Adverse Reactions: Allergies No Known Allergies Allergy (Verified 06/22/15 23:38) Home Medications: Home Meds Medication Instructions Recorded Confirmed No Known Home Med 11/18/16 08/06/17 Review of Systems - Physician Review All systems were reviewed & negative as marked: Yes - Review of Systems Constitutional: Normal. absent: Fevers Eyes: Normal ENT: Normal Respiratory: Normal. absent: SOB, Cough Cardiovascular: Normal. absent: Chest Pain Gastrointestinal: Abdominal Pain, Nausea, Vomiting. absent: Diarrhea Genitourinary Male: Normal. absent: Dysuria, Frequency, Hematuria, Urinary Output Changes Musculoskeletal: Normal. absent: Back Pain, Neck Pain Skin: Normal. absent: Rash Neurological: Normal. absent: Headache, Dizziness Endocrine: Normal Hemo/Lymphatic: Normal Psychiatric: Normal Physical Exam Vital Signs Reviewed: Yes Vital Signs Temp Pulse Resp BP Pulse Ox 08/07/17 00:00 92 H 16 112/56 L 97 08/06/17 22:22 98 F 90 18 121/77 97 08/06/17 20:26 98.0 F 101 H 16 131/88 98 Temperature: Afebrile Blood Pressure: Normal Pulse: Regular Respiratory Rate: Normal Appearance: Positive for: Well-Appearing, Non-Toxic, Comfortable Pain Distress: None Mental Status: Positive for: Alert and Oriented X 3 - Systems Exam Head: Present: Atraumatic, Normocephalic Pupils: Present: PERRL Extroacular Muscles: Present: EOMI Conjunctiva: Present: Normal Mouth: Present: Moist Mucous Membranes Neck: Present: Normal Range of Motion Respiratory/Chest: Present: Clear to Auscultation, Good Air Exchange. No: Respiratory Distress, Accessory Muscle Use Cardiovascular: Present: Regular Rate and Rhythm, Normal S1, S2. No: Murmurs Abdomen: Present: Tenderness (LUQ tenderness), Normal Bowel Sounds. No: Distention, Peritoneal Signs Back: Present: Normal Inspection Upper Extremity: Present: Normal Inspection. No: Cyanosis, Edema Lower Extremity: Present: Normal Inspection. No: Edema Neurological: Present: GCS=15, CN II-XII Intact, Speech Normal Skin: Present: Warm, Dry, Normal Color. No: Rashes Psychiatric: Present: Alert, Oriented x 3, Normal Insight, Normal Concentration Medical Decision Making ED Course and Treatment: 08/06/17 20:35 Impression: 37 year old male complaining of left-sided abdominal pain and vomiting today. Differential Diagnosis included but are not limited to: pancreatitis vs. intractable abdominal pain Plan: -- CT Abdomen and Pelvis -- EKG -- Labs, cardiac enzymes, lipase, amylase -- Urinalysis -- IV fluids -- Zofran -- Protonix -- Morphine -- Reassess and disposition Prior Visits: Notes and results from previous visits were reviewed. On 11/18/2016, pt was seen in the Emergency department for LUQ pain and nausea. Pt was admitted to the hospital for further evaluation. Progress Notes: 08/07/17 23:55 CT Abdomen and Pelvis shows: Lower thorax: Hypoventilatory changes of the lung bases. Evidence of bulla at the lung bases. ABDOMEN: Liver: Enlarged liver with evidence of fatty infiltration. Gallbladder and bile ducts: No acute abnormality as visualized. Pancreas: Evidence of edema with surrounding fluid/stranding. Spleen: No splenomegaly. Adrenals: No acute abnormality as visualized. Kidneys and ureters: No obstructing stones. No hydronephrosis. Nonspecific perinephric stranding. Stomach and bowel: Evidence of bowel wall thickening involving the distal stomach and a wide adjacent to the pancreas. No obstruction. Limited evaluation without contrast. Appendix: No findings to suggest acute appendicitis. PELVIS: Bladder: Limited evaluation due to collapsed state. Reproductive: No acute abnormality as visualized. ABDOMEN and PELVIS: Intraperitoneal space: Mild ascites. No free air. Bones/joints: Deformity of the left posterior lateral sixth and seventh ribs. Soft tissues: No acute abnormality as visualized. Vasculature: Mild atherosclerosis. No abdominal aortic aneurysm. Lymph nodes: Prominent perpancreatic nodes. IMPRESSION: Acute pancreatitis. Evidence of inflammation of adjacent bowel. Associated findings as above. Please see additional details/findings as above. Please note evaluation for underlying visceral lesions/abnormalities limited without intravenous contrast. 08/07/17 00:00 Case discussed with medical records specialist sales support consultant, who is aware and agrees with plan. Case discussed with Dr. Vazquez, who is aware and agrees with plan. Accepts pt in to the hospitalist service. Pt will be [facility] to [facility] for pancreatitis. Pt in stable condition. Discussed results and hospital admission plan with pt, who agrees with plan and verbalizes understanding. 08/07/17 00:35 Reviewed EKG, NSR at [address] bpm[address] Non-specific ST/T wave changes. - Lab Interpretations Lab Results: 08/06/17 20:56 08/06/17 20:56 Lab Results 08/06/17 21:43: Urine Color Yellow, Urine Appearance Sl cloudy, Urine pH 7.0, Ur Specific [place] 1.015, Urine Protein 100 H, Urine Glucose (UA) Negative, Urine Ketones Trace H, Urine Blood Small H, Urine Nitrate Negative, Urine Bilirubin Small H, Urine Urobilinogen 2.0 H, Ur Leukocyte Esterase Negative, Urine RBC 2 - 5, Urine WBC 0 - 2, Ur Epithelial Cells 1 - 3, Urine Bacteria Few 08/06/17 20:56: Sodium 142, Potassium 3.1 L, Chloride 94 L, Carbon Dioxide 27, Anion Gap 23 H, BUN 9, Creatinine 0.5 L, Est GFR ( Amer) > 60, Est GFR ( Non-Af Amer) > 60, Random Glucose 110, Calcium 9.8, Total Bilirubin 2.3 H, AST 251 H, ALT 188 H, Alkaline Phosphatase 257 H, Lactate Dehydrogenase 638, Total Creatine Kinase 126, Troponin I < 0.01, Total Protein 8.8 H, Albumin 4.5, Globulin 4.3, Albumin/Globulin Ratio 1.1, Amylase 635 H, Lipase 3812 H 08/06/17 20:56: PT 14.2 H, INR 1.24 H, APTT 33.2 08/06/17 20:56: WBC 11.7 H, RBC 5.08, Hgb 17.8, Hct 49.9, MCV 98.2, MCH 35.0, MCHC 35.7, RDW 13.1, Plt Count 157, MPV 10.3, Gran % 70.8 H, Lymph % (Auto) 21.8 L, [place] % (Auto) 7.0 H, Eos % (Auto) 0.3 L, Baso % (Auto) 0.1, Gran # 8.26 H, Lymph # (Auto) 2.5, [place] # (Auto) 0.8 H, Eos # (Auto) 0.0, Baso # (Auto) 0.01 I have reviewed the lab results: Yes - RAD Interpretation Radiology Orders: 08/06/17 21:34 ABD & PELVIS W/O PO OR IV CONT [CT] Stat Take Up Operator: Radiologist - EKG Interpretation Interpreted by ED Physician: Yes Type: 12 lead EKG - Medication Orders Current Medication Orders: Lactated Ringer's (Lactated Ringer's) 1,000 mls @ 225 mls/hr IV .Q4H27M FÉLIX Last Admin: 08/07/17 03:19 Dose: 225 mls/hr eMAR Start Stop Document 08/07/17 03:19 MB (Rec: 08/07/17 03:19 MB [id number] Intravenous Solution Start Date 08/07/17 Start Time 03:19 Lorazepam (Ativan) 2 mg IVP Q4H PRN; Protocol PRN Reason: Symptoms of alcohol withdrawl Morphine Sulfate (Morphine) 2 mg IVP Q4H PRN PRN Reason: Pain, severe (8-10) Pantoprazole Sodium (Protonix Inj) 40 mg IVP DAILY FÉLIX Discontinued Medications Sodium Chloride (Sodium Chloride 0.9%) 1,000 mls @ 100 mls/hr IV .Q10H STA Stop: 08/07/17 06:37 Last Admin: 08/06/17 20:59 Dose: 100 mls/hr eMAR Start Stop Document 08/06/17 20:59 LA (Rec: 08/06/17 20:59 LA [id number]) Intravenous Solution Start Date 08/06/17 Start Time 20:59 Sodium Chloride (Sodium Chloride 0.9%) 1,000 mls @ 225 mls/hr IV .Q4H27M STA Stop: 08/07/17 01:04 Last Admin: 08/07/17 00:50 Dose: 225 mls/hr eMAR Start Stop Document 08/07/17 00:50 LA (Rec: 08/07/17 00:50 LA [id number] Intravenous Solution Start Date 08/07/17 Start Time 00:50 Lactated Ringer's (Lactated Ringer's) 1,000 mls @ 200 mls/hr IV .Q5H FÉLIX Potassium Chloride (Potassium Chloride 20 Meq/100 Ml) 20 meq in 100 mls @ 50 mls/hr IVPB Q2H FÉLIX Stop: 08/07/17 04:29 Last Admin: 08/07/17 03:19 Dose: 50 mls/hr eMAR Start Stop Document 08/07/17 03:19 MB (Rec: 08/07/17 03:19 MB [id number]) Intravenous Solution Start Date 08/07/17 Start Time 03:19 Lactated Ringer's (Lactated Ringer's) 1,000 mls @ 225 mls/hr IV .Q4H27M FÉLIX Morphine Sulfate (Morphine) 2 mg IVP STAT STA Stop: 08/06/17 21:34 Last Admin: 08/06/17 23:35 Dose: 2 mg MAR Pain Assessment Document 08/06/17 23:35 LA (Rec: 08/06/17 23:36 LA [email or web address] Pain Reassessment Is this a pain reassessment? No Sleep Is patient sleeping during reassessment? No IVP Administration Document 08/06/17 23:35 LA (Rec: 08/06/17 23:36 LA [id number] Charges for Administration # of IVP Administrations 1 Ondansetron HCl (Zofran Inj) 4 mg IVP STAT STA Stop: 08/06/17 20:39 Last Admin: 08/06/17 21:01 Dose: 4 mg IVP Administration Document 08/06/17 21:01 LA (Rec: 08/06/17 21:01 LA [id number] Charges for Administration # of IVP Administrations 1 Pantoprazole Sodium (Protonix Inj) 40 mg IVP ONCE STA Stop: 08/06/17 20:40 Last Admin: 08/06/17 21:01 Dose: 40 mg IVP Administration Document 08/06/17 21:01 LA (Rec: 08/06/17 21:01 LA [id number] Charges for Administration # of IVP Administrations 1 - Scribe Statement The provider has reviewed the documentation as recorded by the Scribpanda Padilla All medical record entries made by the Scribe were at my direction and personally dictated by me. I have reviewed the chart and agree that the record accurately reflects my personal performance of the history, physical exam, medical decision making, and the department course for this patient. I have also personally directed, reviewed, and agree with the discharge instructions and disposition. Disposition/Present on Arrival - Present on Arrival Any Indicators Present on Arrival: No History of DVT/PE: No History of Uncontrolled Diabetes: No Urinary Catheter: No History of Decub. Ulcer: No History Surgical Site Infection Following: None - Disposition Have Diagnosis and Disposition been Completed?: Yes Diagnosis: Pancreatitis, acute Disposition: HOSPITALIZED Disposition Time: 00:00 Condition: FAIR
[2017-08-06 22:41] LABS: URINE BILIRUBIN SMALL (NEGATIVE); URINE BLOOD SMALL (NEGATIVE); URINE GLUCOSE (UA) NEGATIVE (NEGATIVE); URINE LEUKOCYTE ESTERASE NEGATIVE Leu/uL (NEGATIVE); URINE NITRATE NEGATIVE (NEGATIVE); URINE PROTEIN 100 mg/dL (<30 mg/dL)
[2017-08-06 22:53] LABS: URINE APPEARANCE SL CLOUDY (CLEAR); URINE COLOR YELLOW (YELLOW)
[2017-08-06 23:03] LABS: URINE BACTERIA FEW (NEG); URINE WBC 0 - 2 /hpf (0-6)
--- NOTE | 2017-08-06 23:53 | CT ---
EXAM: CT Abdomen and Pelvis Without Intravenous Contrast CLINICAL HISTORY: 37 years old, male; Pain; Abdominal pain; Localized; Lower; Additional info: Abd pain TECHNIQUE: Axial computed tomography images of the abdomen and pelvis without intravenous contrast. All CT scans at this facility use one or more dose reduction techniques, viz.: automated exposure control; ma/kV adjustment per patient size (including targeted exams where dose is matched to indication; i.e. head); or iterative reconstruction technique. Coronal and sagittal reformatted images were created and reviewed. COMPARISON: CT - ABD PELVIS W/O PO OR IV CONT 2016-11-18 02:44 FINDINGS: Lower thorax: Hypoventilatory changes of the lung bases. Evidence of bulla at the lung bases. ABDOMEN: Liver: Enlarged liver with evidence of fatty infiltration. Gallbladder and bile ducts: No acute abnormality as visualized. Pancreas: Evidence of edema with surrounding fluid/stranding. Spleen: No splenomegaly. Adrenals: No acute abnormality as visualized. Kidneys and ureters: No obstructing stones. No hydronephrosis. Nonspecific perinephric stranding. Stomach and bowel: Evidence of bowel wall thickening involving the distal stomach and a wide adjacent to the pancreas. No obstruction. Limited evaluation without contrast. Appendix: No findings to suggest acute appendicitis. PELVIS: Bladder: Limited evaluation due to collapsed state. Reproductive: No acute abnormality as visualized. ABDOMEN and PELVIS: Intraperitoneal space: Mild ascites. No free air. Bones/joints: Deformity of the left posterior lateral sixth and seventh ribs. Soft tissues: No acute abnormality as visualized. Vasculature: Mild atherosclerosis. No abdominal aortic aneurysm. Lymph nodes: Prominent perpancreatic nodes. IMPRESSION: Acute pancreatitis. Evidence of inflammation of adjacent bowel. Associated findings as above. Please see additional details/findings as above. Please note evaluation for underlying visceral lesions/abnormalities limited without intravenous contrast.
[2017-08-07] MEDS ORDERED: Sodium Chloride 0.9% 1,000 ML IV STA (00:15)
[2017-08-07] MEDS ORDERED: Morphine 2 mg/ml ISec IVP PRN (01:00)
--- NOTE | 2017-08-07 01:00 | CP.PCM.HP ---
<Isidra Verdin - Last Filed: 08/07/17 01:04> History of Present Illness - History of Present Illness History of Present Illness: 37 year old male with a PMHx of EtOH and acute pancreatitis presents with 10/10 , constant, non-radiating, sharp abdominal pain that started yesterday morning. Patient denies using any modalities to treat the pain. Patient admits to daily alcohol use. He admits to drinking at least a 1/2 a pint of Vodka daily. His last drink was yesterday afternoon. Patient has similar abdominal pain in the past when he was diagnosed with pancreatitis in November of 2016. He denies any nausea or vomiting. He admits to diarrhea, and denies any blood in the stool. ROS POSITIVE: Abdominal Pain, Non-Bloody Diarrhea NEGATIVE: Fevers, chills, Chest Pain, SOB, Nausea, Vomiting, Constipation, urinary symptoms. PMHx: EtOH Abuse/Pancreatitis PSHx: Denies Allergies: NKDA SocialHx: Admits to drinking at least 1/2 pint of vodka daily, 1PPD for 15 years , Denies illicit drug use. Hos: 11/2016 for Pancreatitis FamHx: Non-Contributory Meds: None Present on Admission - Present on Admission Any Indicators Present on Admission: No Review of Systems - Review of Systems Review of Systems: As per HPI Past Patient History - Infectious Disease Hx of Infectious Diseases: None - Past Social History Smoking Status: Heavy Smoker > 10 Cigarettes Daily - INTEGUMENTARY Other/Comment: scratch ponce ble - MUSCULOSKELETAL/RHEUMATOLOGICAL Hx Falls: No - GASTROINTESTINAL Hx Gastrointestinal Disorders: Yes (gi bleed) - PSYCHIATRIC Hx Psychophysiologic Disorder: No Hx Depression: No Hx Emotional Abuse: No Hx Physical Abuse: No Hx Substance Use: No - SURGICAL HISTORY Hx Surgeries: No Meds Allergies/Adverse Reactions: Allergies Allergy/AdvReac Type Severity Reaction Status Date / Time No Known Allergies Allergy Verified 06/22/15 23:38 Physical Exam - Constitutional Appears: Non-toxic, No Acute Distress, Older Than Stated Age - Head Exam Head Exam: ATRAUMATIC, NORMAL INSPECTION, NORMOCEPHALIC - Eye Exam Eye Exam: EOMI. absent: Scleral icterus - ENT Exam ENT Exam: Mucous Membranes Moist - Respiratory Exam Respiratory Exam: Clear to Auscultation Bilateral, NORMAL BREATHING PATTERN. absent: Accessory Muscle Use, Rales, Rhonchi, Wheezes, Stridor - Cardiovascular Exam Cardiovascular Exam: RRR, +S1, +S2. absent: JVD - GI/Abdominal Exam GI & Abdominal Exam: Normal Bowel Sounds, Tenderness (LLQ, LUQ, periumbilical, epigastric. ) - Extremities Exam Extremities exam: Positive for: normal capillary refill, normal inspection. Negative for: pedal edema - Neurological Exam Neurological exam: Alert, Oriented x3 Additional comments: No tremor - Psychiatric Exam Psychiatric exam: Normal Affect, Normal Mood - Skin Skin Exam: Dry, Intact, Normal Color, Warm Results - Vital Signs Recent Vital Signs: Last Vital Signs Temp 98 F 08/06/17 22:22 Pulse 92 H 08/07/17 00:00 Resp 16 08/07/17 00:00 BP 112/56 L 08/07/17 00:00 Pulse Ox 97 08/07/17 00:00 - Labs Result Diagrams: 08/06/17 20:56 08/06/17 20:56 Labs: Laboratory Results - last 24 hr 08/06/17 08/06/17 08/06/17 20:56 20:56 20:56 WBC 11.7 H RBC 5.08 Hgb 17.8 Hct 49.9 MCV 98.2 MCH 35.0 MCHC 35.7 RDW 13.1 Plt Count 157 MPV 10.3 Gran % 70.8 H Lymph % (Auto) 21.8 L [place] % (Auto) 7.0 H Eos % (Auto) 0.3 L Baso % (Auto) 0.1 Gran # 8.26 H Lymph # (Auto) 2.5 [place] # (Auto) 0.8 H Eos # (Auto) 0.0 Baso # (Auto) 0.01 PT 14.2 H INR 1.24 H APTT 33.2 Sodium 142 Potassium 3.1 L Chloride 94 L Carbon Dioxide 27 Anion Gap 23 H BUN 9 Creatinine 0.5 L Est GFR ( Amer) > 60 Est GFR (Non-Af Amer) > 60 Random Glucose 110 Calcium 9.8 Total Bilirubin 2.3 H AST 251 H ALT 188 H Alkaline Phosphatase 257 H Lactate Dehydrogenase 638 Total Creatine Kinase 126 Troponin I < 0.01 Total Protein 8.8 H Albumin 4.5 Globulin 4.3 Albumin/Globulin Ratio 1.1 Amylase 635 H Lipase 3812 H Urine Color Urine Appearance Urine pH Ur Specific [place] Urine Protein Urine Glucose (UA) Urine Ketones Urine Blood Urine Nitrate Urine Bilirubin Urine Urobilinogen Ur Leukocyte Esterase Urine RBC Urine WBC Ur Epithelial Cells Urine Bacteria Alcohol, Quantitative 08/06/17 08/07/17 21:43 00:20 WBC RBC Hgb Hct MCV MCH MCHC RDW Plt Count MPV Gran % Lymph % (Auto) [place] % (Auto) Eos % (Auto) Baso % (Auto) Gran # Lymph # (Auto) [place] # (Auto) Eos # (Auto) Baso # (Auto) PT INR APTT Sodium Potassium Chloride Carbon Dioxide Anion Gap BUN Creatinine Est GFR ( Amer) Est GFR (Non-Af Amer) Random Glucose Calcium Total Bilirubin AST ALT Alkaline Phosphatase Lactate Dehydrogenase Total Creatine Kinase Troponin I Total Protein Albumin Globulin Albumin/Globulin Ratio Amylase Lipase Urine Color Yellow Urine Appearance Sl cloudy Urine pH 7.0 Ur Specific [place] 1.015 Urine Protein 100 H Urine Glucose (UA) Negative Urine Ketones Trace H Urine Blood Small H Urine Nitrate Negative Urine Bilirubin Small H Urine Urobilinogen 2.0 H Ur Leukocyte Esterase Negative Urine RBC 2 - 5 Urine WBC 0 - 2 Ur Epithelial Cells 1 - 3 Urine Bacteria Few Alcohol, Quantitative 161 H Assessment & Plan - Assessment and Plan (Free Text) Assessment: 37 year old male with PMHx of EtOH abuse and pancreatitis admitted for evaluatio and treatment of acute pancreatitis. Plan: Acute Pancreatitis CT Abd/Pelvis (Adm): Shows Acute Pancreatitis Lipase/Amylase Elevated LR @ 225 Morphine 2 Q4H PRN NPO Elevated Liver Enzymes Secondary to EtOH Abuse Trend and Monitor Hypokalemia 3.1 on Admission Total of 40MeQ K-Ye EtOH Intoxication Alc lvl on Adm: 161 CIWA Protocol, Seizure Precautions, PRN Ativan for possible future withdrawal. Engineering Equipment Operator on Alcohol Cessation Consider Social Work Consult for outpatient options. Proph Protonix IV/SCD's Patient discussed with Attending (Dr. Vazquez) Isidra Verdin, PGY1 <Roger Vazquez - Last Filed: 08/07/17 03:26> Results - Vital Signs Recent Vital Signs: Last Vital Signs Temp 98 F 08/06/17 22:22 Pulse 92 H 08/07/17 00:00 Resp 16 08/07/17 00:00 BP 112/56 L 08/07/17 00:00 Pulse Ox 97 08/07/17 00:00 - Labs Result Diagrams: 08/06/17 20:56 08/06/17 20:56 Labs: Laboratory Results - last 24 hr 08/07/17 00:20 Alcohol, Quantitative 161 H Attending/Attestation - Attestation I have personally seen and examined this patient.: Yes I have fully participated in the care of the patient.: Yes I have reviewed all pertinent clinical information: Yes Notes (Text): 08/07/17 03:25 Patient was seen when he was in bed 563-01. Agree with history, physical examination, assessment and plan.
[2017-08-07] MEDS ORDERED: Lactated Ringer's 1,000 ML IV SCH ×2 (01:30)
[2017-08-07] MEDS: Lactated Ringer's 1,000 ML IV SCH ×2 (03:19→06:23)
[2017-08-07 06:52] LABS: BASO # 0.01 K/mm3 (0.0-2.0); BASO % 0.1 % (0.0-3.0); EOS % 0.5 % (1.5-5.0); GRAN # 5.81 (1.4-6.5); HEMOGLOBIN 14.2 g/dL (14.0-18.0); LYMPH # 1.5 (1.2-3.4); LYMPH % 18.5 % (22.0-35.0); MEAN CELL VOLUME 99.8 fl (80.0-105.0); MEAN CORPUSCULAR HEMOGLOBIN 34.1 pg (25.0-35.0); MEAN CORPUSCULAR HGB CONC 34.2 g/dl (31.0-37.0); MEAN PLATELET VOLUME 10.4 fl (7.0-11.0); MONO # 0.7 (0.1-0.6); MONO % 8.9 % (1.0-6.0); RBC 4.16 10^6/uL (3.5-6.1); RED CELL DISTRIBUTION WIDTH 13.2 % (11.5-14.5); WHITE BLOOD COUNT 8.1 10^3/ul (4.5-11.0)
[2017-08-07 07:06] LABS: BLOOD UREA NITROGEN 6 mg/dL (7-21); GFR AFRICAN-AMERICAN > 60; GFR NON-AFRICAN AMERICAN > 60
[2017-08-07 07:07] LABS: ALB/GLOB RATIO 1.1 (1.1-1.8); ALBUMIN 3.5 g/dL (3.0-4.8); ALT/SGPT 134 U/L (7-56); AST/SGOT 156 U/L (17-59); CALCIUM 8.2 mg/dL (8.4-10.5)
[2017-08-07] MEDS ORDERED: Multivitamin Therapeutic Tab PO SCH ×2 (08:00→10:00)
[2017-08-07 10:31] LABS: AMYLASE 394 U/L (35-125); LIPASE 1908 U/L (23-300)
--- NOTE | 2017-08-07 11:30 | US ---
HISTORY: r/o gall stone COMPARISON: None. TECHNIQUE: Grayscale imaging was performed. FINDINGS: LIVER: Measures 17.2 cm. There is diffuse increased echogenicity of the liver parenchyma. No mass. No intrahepatic bile duct dilatation. GALLBLADDER: There are no gallstones, wall thickening or pericholecystic fluid. The sonographic Mayorga's sign is COMMON BILE DUCT: Measures 4.0 mm. No stones. No dilatation. PANCREAS: Unremarkable as visualized. No mass. No ductal dilatation. RIGHT KIDNEY: Measures 12.4cm. Normal echogenicity. No calculus, mass, or hydronephrosis. LEFT KIDNEY: Measures 12.5cm. Normal echogenicity. No calculus, mass, or hydronephrosis. SPLEEN: There is mild splenomegaly. No focal mass. AORTA: No aneurysmal dilatation. IVC: Unremarkable. OTHER FINDINGS: None. IMPRESSION: Mild hepatosplenomegaly. Diffuse increased echogenicity in the liver may reflect hepatic steatosis however parenchymal infectious/ inflammatory etiologies cannot be entirely excluded. Clinical and laboratory correlation is advised. No cholelithiasis or biliary dilatation.
[2017-08-07] MEDS: Folic Acid 1 MG, Thiamine 100 MG, Multivitamin (MVI) 10 ML, Potassium Chloride 40 MEQ i... IV SCH ×2 (12:42→21:20)
--- NOTE | 2017-08-07 19:07 | CARD ---
APPROVED REPORT EKG Measurement Heart [id number] <Conclusion> Normal sinus rhythm Prolonged QT Abnormal ECG
[2017-08-08 07:06] LABS: EOS # 0.1 (0.0-0.7); GRAN # 4.68 (1.4-6.5); GRAN % 69.1 % (50.0-68.0); HEMOGLOBIN 15.1 g/dL (14.0-18.0); LYMPH # 1.4 (1.2-3.4); LYMPH % 21.1 % (22.0-35.0); MEAN CELL VOLUME 99.8 fl (80.0-105.0); MEAN CORPUSCULAR HEMOGLOBIN 34.8 pg (25.0-35.0); MEAN CORPUSCULAR HGB CONC 34.9 g/dl (31.0-37.0); MEAN PLATELET VOLUME 10.9 fl (7.0-11.0); MONO # 0.6 (0.1-0.6); MONO % 8.8 % (1.0-6.0); RBC 4.34 10^6/uL (3.5-6.1); RED CELL DISTRIBUTION WIDTH 12.7 % (11.5-14.5); WHITE BLOOD COUNT 6.8 10^3/ul (4.5-11.0)
[2017-08-08 07:32] LABS: ALBUMIN 3.8 g/dL (3.0-4.8); ALT/SGPT 120 U/L (7-56); AST/SGOT 148 U/L (17-59); BLOOD UREA NITROGEN 5 mg/dL (7-21); CALCIUM 9.8 mg/dL (8.4-10.5); GFR AFRICAN-AMERICAN > 60; GFR NON-AFRICAN AMERICAN > 60
[2017-08-08] MEDS: Lactated Ringer's 1,000 ML IV SCH (09:12)
--- NOTE | 2017-08-08 12:07 | CP.PCM.PN ---
<Venkatesh Lauren - Last Filed: 08/08/17 12:03> Subjective - Date & Time of Evaluation Date of Evaluation: 08/08/17 Time of Evaluation: 07:40 - Subjective Subjective: Medicine progress note for Dr. Kelly Hospitalist Service Patient seen and examined at bedside. Patient reports improvement in abdominal pain. Patient also states that he has an appetite this morning and is requesting advancement of diet. Patient denies fever, chills, chest pain, dyspnea, dysuria. Pain remains primarily in the lower left quadrant per patient. Objective - Vital Signs/Intake and Output Vital Signs (last 24 hours): Temp Pulse Resp BP Pulse Ox 98.1 F 79 20 144/93 H 97 08/08/17 07:54 08/08/17 07:54 08/08/17 07:54 08/08/17 07:54 08/08/17 07:54 Intake and Output: 08/08/17 08/08/17 06:59 18:59 Intake Total 0 Output Total 0 Balance 0 - Medications Medications: Current Medications Lactated Ringer's (Lactated Ringer's) 1,000 mls @ 150 mls/hr IV .Q6H40M [facility] Last Admin: 08/08/17 09:12 Dose: 150 mls/hr Lorazepam (Ativan) 2 mg IVP Q4H PRN; Protocol PRN Reason: Symptoms of alcohol withdrawl Last Admin: 08/07/17 10:07 Dose: 2 mg Morphine Sulfate (Morphine) 2 mg IVP Q4H PRN PRN Reason: Pain, severe (8-10) Last Admin: 08/08/17 08:37 Dose: 2 mg Pantoprazole Sodium (Protonix Inj) 40 mg IVP DAILY [facility] Last Admin: 08/08/17 09:12 Dose: 40 mg - Labs Labs: 08/08/17 06:30 08/08/17 06:30 PT 14.2 SECONDS (9.4-12.5) H 08/06/17 20:56 INR 1.24 (0.93-1.08) H 08/06/17 20:56 APTT 33.2 Seconds (25.1-36.5) 08/06/17 20:56 - Constitutional Appears: No Acute Distress - Head Exam Head Exam: ATRAUMATIC, NORMOCEPHALIC - Eye Exam Eye Exam: EOMI, Normal appearance - ENT Exam ENT Exam: Mucous Membranes Moist - Respiratory Exam Respiratory Exam: Clear to Ausculation Bilateral, NORMAL BREATHING PATTERN. absent: Rales, Rhonchi, Wheezes - Cardiovascular Exam Cardiovascular Exam: REGULAR RHYTHM, +S1, +S2 - GI/Abdominal Exam GI & Abdominal Exam: Soft, Tenderness (right upper quadrant, epigastric, and left lower quadrant tenderness), Normal Bowel Sounds. absent: Distended, Guarding - Extremities Exam Extremities Exam: absent: Pedal Edema - Neurological Exam Neurological Exam: Alert, Awake, Oriented x3 - Psychiatric Exam Psychiatric exam: Normal Affect, Normal Mood - Skin Skin Exam: Dry, Warm Assessment and Plan - Assessment and Plan (Free Text) Assessment: This is a 37 year old male with PMHx of alcohol abuse and pancreatitis who presented complaining of abdominal pain. The pain is due to acute pancreatitis. Patient initially treated with IV fluids and kept NPO. Today, his diet is advanced to clear liquids. Plan: 1. Acute Pancreatitis CT evidence of Acute Pancreatitis Advanced to clear liquid diet Lactated Ringers at 150 cc/hr 2. Elevated Transaminases Likely secondary to alcohol abuse GI consulted Downtrending Per Ultrasound, fatty liver with no evidence of cholelithiasis 3. Hypokalemia 3.1 on Admission Repleted Continue to monitor 4. Alcohol Intoxication On admission, serum alcohol: 161 CIWA Protocol, Seizure Precautions, PRN Ativan 2mg IV Q4H Counseled on Alcohol Cessation Counseled on Alcoholics' Anonymous meetings Folic Acid, Thiamine, Multivitamins 5. Prophylaxis GI: Protonix DVT: SCDs Disposition: Patient provided a card for the [facility]. He is to follow up with them as an outpatient. Patient seen and discussed with Dr. Kelly <Shaka Kelly - Last Filed: 08/08/17 13:38> Objective - Vital Signs/Intake and Output Vital Signs (last 24 hours): Temp Pulse Resp BP Pulse Ox 98.1 F 79 20 144/93 H 97 08/08/17 07:54 08/08/17 07:54 08/08/17 07:54 08/08/17 07:54 08/08/17 07:54 Intake and Output: 08/08/17 08/08/17 06:59 18:59 Intake Total 0 Output Total 0 Balance 0 - Medications Medications: Current Medications Folic Acid (Folic Acid) 1 mg PO DAILY [facility] Last Admin: 08/08/17 12:44 Dose: 1 mg Lactated Ringer's (Lactated Ringer's) 1,000 mls @ 150 mls/hr IV .Q6H40M [facility] Last Admin: 08/08/17 09:12 Dose: 150 mls/hr Lorazepam (Ativan) 2 mg IVP Q4H PRN; Protocol PRN Reason: Symptoms of alcohol withdrawl Last Admin: 08/07/17 10:07 Dose: 2 mg Morphine Sulfate (Morphine) 2 mg IVP Q4H PRN PRN Reason: Pain, severe (8-10) Last Admin: 08/08/17 08:37 Dose: 2 mg Multivitamins/Vitamin C (Multi-Delyn Liquid) 15 ml PO 0800 [facility] Pantoprazole Sodium (Protonix Inj) 40 mg IVP DAILY [facility] Last Admin: 08/08/17 09:12 Dose: 40 mg Thiamine HCl (Vitamin B1 Tab) 100 mg PO DAILY [facility] Last Admin: 08/08/17 12:44 Dose: 100 mg - Labs Labs: 08/08/17 06:30 08/08/17 06:30 PT 14.2 SECONDS (9.4-12.5) H 08/06/17 20:56 INR 1.24 (0.93-1.08) H 08/06/17 20:56 APTT 33.2 Seconds (25.1-36.5) 08/06/17 20:56 Attending/Attestation - Attestation I have personally seen and examined this patient.: Yes I have fully participated in the care of the patient.: Yes I have reviewed all pertinent clinical information, including history, physical exam and plan: Yes Notes (Text): 08/08/17 13:36 Attending note; Patient seen and examined with resident. Patient is a 37-year-old [place]ian man with a history of alcohol abuse is admitted with alcoholic pancreatitis. Elevated LFTs secondary to acute alcohol abuse. CT scan showed hepatic fatty infiltration. Ultrasound is negative for gallstones /cholecystitis. Abdominal pain is improving. Continue IV fluids, multivitamin, thiamine, folic acid. Started on clear liquid diet. Monitor LFTs closely. Alcohol abuse; complete alcohol cessation is strongly advised. Information about AA rehabilitation given. The diagnosis and follow-up plan discussed with patient in detail with Albanian speaking nursing staff. Upon discharge the patient will be referred to [facility] clinic.
[2017-08-08] MEDS: Folic Acid 1 MG, Thiamine 100 MG, Multivitamin (MVI) 10 ML, Potassium Chloride 40 MEQ i... IV SCH (15:46)
[2017-08-09] MEDS: Lactated Ringer's 1,000 ML IV SCH ×2 (05:22→09:35)
[2017-08-09 06:49] LABS: BASO # 0.01 K/mm3 (0.0-2.0); BASO % 0.2 % (0.0-3.0); EOS # 0.1 (0.0-0.7); EOS % 1.5 % (1.5-5.0); GRAN # 4.11 (1.4-6.5); HEMOGLOBIN 14.4 g/dL (14.0-18.0); LYMPH # 1.2 (1.2-3.4); MEAN CELL VOLUME 99.3 fl (80.0-105.0); MEAN CORPUSCULAR HEMOGLOBIN 33.8 pg (25.0-35.0); MEAN PLATELET VOLUME 10.6 fl (7.0-11.0); MONO # 0.4 (0.1-0.6); MONO % 7.3 % (1.0-6.0); RBC 4.26 10^6/uL (3.5-6.1); RED CELL DISTRIBUTION WIDTH 12.7 % (11.5-14.5); WHITE BLOOD COUNT 5.9 10^3/ul (4.5-11.0)
[2017-08-09 07:27] LABS: ALBUMIN 3.6 g/dL (3.0-4.8); ALT/SGPT 135 U/L (7-56); AST/SGOT 217 U/L (17-59); BLOOD UREA NITROGEN 5 mg/dL (7-21); CALCIUM 9.9 mg/dL (8.4-10.5); GFR AFRICAN-AMERICAN > 60; GFR NON-AFRICAN AMERICAN > 60
[2017-08-09 07:48] VITALS: BP 161/103; PULSE 69; RESP 18; TEMP 98.4; O2SAT 96
[2017-08-09] MEDS ORDERED: Multi Vitamins 15 mL UD Oral Solution PO SCH (08:00)
--- NOTE | 2017-08-10 07:03 | CP.PCM.DIS ---
Provider - Provider Date of Admission: 08/07/17 00:00 Attending physician: Shaka Kelly MD Primary care physician: NO PRIMARY CARE PROVIDER Hospital Course - Lab Results Lab Results: Most Recent Lab Values WBC 5.9 10^3/ul (4.5-11.0) 08/09/17 06:20 RBC 4.26 10^6/uL (3.5-6.1) 08/09/17 06:20 Hgb 14.4 g/dL (14.0-18.0) 08/09/17 06:20 Hct 42.3 % (42.0-52.0) 08/09/17 06:20 MCV 99.3 fl (80.0-105.0) 08/09/17 06:20 MCH 33.8 pg (25.0-35.0) 08/09/17 06:20 MCHC 34.0 g/dl (31.0-37.0) 08/09/17 06:20 RDW 12.7 % (11.5-14.5) 08/09/17 06:20 Plt Count 108 10^3/uL (120.0-450.0) L 08/09/17 06:20 MPV 10.6 fl (7.0-11.0) 08/09/17 06:20 Gran % 70.0 % (50.0-68.0) H 08/09/17 06:20 Lymph % (Auto) 21.0 % (22.0-35.0) L 08/09/17 06:20 [place] % (Auto) 7.3 % (1.0-6.0) H 08/09/17 06:20 Eos % (Auto) 1.5 % (1.5-5.0) 08/09/17 06:20 Baso % (Auto) 0.2 % (0.0-3.0) 08/09/17 06:20 Gran # 4.11 (1.4-6.5) 08/09/17 06:20 Lymph # (Auto) 1.2 (1.2-3.4) 08/09/17 06:20 [place] # (Auto) 0.4 (0.1-0.6) 08/09/17 06:20 Eos # (Auto) 0.1 (0.0-0.7) 08/09/17 06:20 Baso # (Auto) 0.01 K/mm3 (0.0-2.0) 08/09/17 06:20 PT 14.2 SECONDS (9.4-12.5) H 08/06/17 20:56 INR 1.24 (0.93-1.08) H 08/06/17 20:56 APTT 33.2 Seconds (25.1-36.5) 08/06/17 20:56 Sodium 138 mmol/L (132-148) 08/09/17 06:20 Potassium 3.8 mmol/L (3.6-5.0) 08/09/17 06:20 Chloride 99 mmol/L (98-107) 08/09/17 06:20 Carbon Dioxide 27 mmol/L (21-33) 08/09/17 06:20 Anion Gap 15 (10-20) 08/09/17 06:20 BUN 5 mg/dL (7-21) L 08/09/17 06:20 Creatinine 0.5 mg/dl (0.8-1.5) L 08/09/17 06:20 Est GFR ( Amer) > 60 08/09/17 06:20 Est GFR (Non-Af Amer) > 60 08/09/17 06:20 Random Glucose 107 mg/dL (70-110) 08/09/17 06:20 Calcium 9.9 mg/dL (8.4-10.5) 08/09/17 06:20 Magnesium 2.0 mg/dL (1.7-2.2) 08/07/17 00:00 Total Bilirubin 3.1 mg/dL (0.2-1.3) H 08/09/17 06:20 Direct Bilirubin 1.9 mg/dL (0.0-0.4) H 08/09/17 10:29 AST 217 U/L (17-59) H D 08/09/17 06:20 ALT 135 U/L (7-56) H 08/09/17 06:20 Alkaline Phosphatase 219 U/L (38-126) H 08/09/17 06:20 Lactate Dehydrogenase 638 U/L (333-699) 08/06/17 20:56 Total Creatine Kinase 126 U/L (35-230) 08/06/17 20:56 Troponin I < 0.01 ng/mL 08/06/17 20:56 Total Protein 7.3 g/dL (5.8-8.3) 08/09/17 06:20 Albumin 3.6 g/dL (3.0-4.8) 08/09/17 06:20 Globulin 3.7 gm/dL 08/09/17 06:20 Albumin/Globulin Ratio 1.0 (1.1-1.8) L 08/09/17 06:20 Triglycerides 118 mg/dL (35-160) 08/07/17 06:00 Amylase 394 U/L (35-125) H 08/07/17 06:00 Lipase 1908 U/L (23-300) H 08/07/17 06:00 Urine Color Yellow (YELLOW) 08/06/17 21:43 Urine Appearance Sl cloudy (CLEAR) 08/06/17 21:43 Urine pH 7.0 (4.7-8.0) 08/06/17 21:43 Ur Specific [place] 1.015 (1.005-1.035) 08/06/17 21:43 Urine Protein 100 mg/dL (<30 mg/dL) H 08/06/17 21:43 Urine Glucose (UA) Negative mg/dL (NEGATIVE) 08/06/17 21:43 Urine Ketones Trace mg/dL (NEGATIVE) H 08/06/17 21:43 Urine Blood Small (NEGATIVE) H 08/06/17 21:43 Urine Nitrate Negative (NEGATIVE) 08/06/17 21:43 Urine Bilirubin Small (NEGATIVE) H 08/06/17 21:43 Urine Urobilinogen 2.0 E.U./dL (<1 E.U./dL) H 08/06/17 21:43 Ur Leukocyte Esterase Negative [place]/uL (NEGATIVE) 08/06/17 21:43 Urine RBC 2 - 5 /hpf (0-2) 08/06/17 21:43 Urine WBC 0 - 2 /hpf (0-6) 08/06/17 21:43 Ur Epithelial Cells 1 - 3 /hpf (0-5) 08/06/17 21:43 Urine Bacteria Few (NEG) 08/06/17 21:43 Alcohol, Quantitative 161 mg/dL (0-10) H 08/07/17 00:20 Discharge Exam - Head Exam Head Exam: ATRAUMATIC, NORMOCEPHALIC Discharge Plan - Discharge Medications Prescriptions: Folic Acid 1 mg PO DAILY #30 tab Multimineral/Multivitamin [Therapeutic-M Tab] 1 tab PO DAILY #30 tab Thiamine [Vitamin B1 Tab] 100 mg PO DAILY #30 tab - Follow Up Plan Condition: FAIR Disposition: HOME/ ROUTINE Instructions: Pancreatitis (DC) Additional Instructions: 1. Follow up at [facility], where there is a GI clinic. Make appointments for (1) GI clinic, and (2) for primary care health maintenance. Make appointment to see insurance assistant (GI doctor) at [phone] leave name and telephone number, expect to receive call back in 24-48 hours [employer] [address] 2. Alcohol cessation is strongly recommended. Recommend pt to join alcoholics anonymous and support groups at [facility] 3. COntinue low fat diet Diagnosis --------- alcoholic pancreatitis alcoholic hepatitis Conjugated Hyperbilirubinemia Referrals: Alcoholics Anonymous [Outside] [facility] [Outside] PCP,NO [Primary Care Provider] -
[2017-08-10] MEDS ORDERED: Pantoprazole 40 mg EC Tab PO SCH (07:30)
== END 2017-08-09 14:18 | disposition home or self-care (01) | DRG 440 ==
LOC: ED 20:22 → ERH 08-07 → 5RNO 08-07 01:31
PROVIDERS: ADMIT Internal Medicine; ATTEND Internal Medicine
DX: K85.90 Acute pancreatitis without necrosis or infection, unspecified (principal); K70.10 Alcoholic hepatitis without ascites; E87.6 Hypokalemia; F10.129 Alcohol abuse with intoxication, unspecified; F17.210 Nicotine dependence, cigarettes, uncomplicated; R40.2412 Glasgow coma scale score 13-15, at arrival to emergency department

== ENCOUNTER 2018-04-11 18:05 | Inpatient (IN) | payer MEDICAID, OTHER ==
[2018-04-11 18:25] VITALS: BMI 12.0
[2018-04-11] MEDS ORDERED: Sodium Chloride 0.9% 1,000 ML IV STA (18:35)
[2018-04-11 19:16] LABS: BASO # 0.02 K/mm3 (0.0-2.0); BASO % 0.3 % (0.0-3.0); EOS % 0.1 % (1.5-5.0); GRAN # 5.26 (1.4-6.5); GRAN % 69.9 % (50.0-68.0); HEMOGLOBIN 12.8 g/dL (14.0-18.0); LYMPH # 1.2 (1.2-3.4); LYMPH % 16.5 % (22.0-35.0); MEAN CELL VOLUME 97.8 fl (80.0-105.0); MEAN CORPUSCULAR HEMOGLOBIN 34.5 pg (25.0-35.0); MEAN CORPUSCULAR HGB CONC 35.3 g/dl (31.0-37.0); MEAN PLATELET VOLUME 11.8 fl (7.0-11.0); MONO % 13.2 % (1.0-6.0); RBC 3.71 10^6/uL (3.5-6.1); RED CELL DISTRIBUTION WIDTH 13.6 % (11.5-14.5); WHITE BLOOD COUNT 7.5 10^3/uL (4.5-11.0)
[2018-04-11 19:20] LABS: VENOUS BLOOD GAS BASE EXCESS 4.5 mmol/L (0.0-2.0); VENOUS BLOOD GAS PO2 162 mm/Hg (30-55); VENOUS BLOOD PH 7.47 (7.32-7.43)
[2018-04-11 19:25] LABS: INR 1.47; PARTIAL THROMBOPLASTIN TIME 36.8 Seconds (25.1-36.5); PROTHROMBIN TIME 16.9 SECONDS (9.4-12.5)
[2018-04-11 19:55] LABS: ALB/GLOB RATIO 0.8 (1.1-1.8); ALBUMIN 3.5 g/dL (3.0-4.8); ALT/SGPT 90 U/L (7-56); AMYLASE 141 U/L (35-125); AST/SGOT 313 U/L (17-59); BLOOD UREA NITROGEN 6 mg/dL (7-21); CALCIUM 8.6 mg/dL (8.4-10.5); GFR NON-AFRICAN AMERICAN > 60; LIPASE 649 U/L (23-300)
[2018-04-11] MEDS ORDERED: Potassium Chloride 20 mEq ER Tab PO STA (20:04)
--- NOTE | 2018-04-11 20:21 | ED PDOC ---
Arrival/HPI - General Chief Complaint: Abdominal Pain Time Seen by Provider: 04/11/18 18:31 Historian: Patient - History of Present Illness Narrative History of Present Illness (Text): 04/12/18 00:34 37yo male with pmhx of alcohol abuse and pancreatitis presenting for 4 day history of abdominal pain. Pain is located in the B/L lower abdominal area, gradual in onset, intermittent, rated 10/10 at worst, non radiating, sharp and associated with nausea and 2 episodes of non bloody vomiting. Patient states abdominal pain feels similar to previous episodes of pancreatitis. Reports daily intake of alcohol and states he drank half bottle of Vodka today. Denies nausea, vomiting, diarrhea, constipation, penile pain, urinary symptoms, chest pain, back pain, fever, chills. Past Medical History - Provider Review Nursing Documentation Reviewed: Yes - Past History Past History: Non-Contributing - Infectious Disease Hx of Infectious Diseases: None - Cardiac Hx Cardiac Disorders: No - Pulmonary Hx Respiratory Disorders: No - Neurological Hx Neurological Disorder: No - HEENT Hx HEENT Disorder: No - Renal Hx Renal Disorder: No - Endocrine/Metabolic Hx Endocrine Disorders: No - Hematological/Oncological Hx Blood Disorders: No - Integumentary Hx Dermatological Disorder: Yes Other/Comment: scratch ponce ble - Musculoskeletal/Rheumatological Hx Musculoskeletal Disorders: No - Gastrointestinal Hx Gastrointestinal Disorders: Yes (gi bleed) - Genitourinary/Gynecological Hx Genitourinary Disorders: No - Psychiatric Hx Psychophysiologic Disorder: No Hx Substance Use: No - Suicidal Assessment Feels Threatened In Home Enviroment: No Family/Social History - Physician Review Nursing Documentation Reviewed: Yes Family/Social History: Unknown Family HX Smoking Status: Heavy Smoker > 10 Cigarettes Daily Hx Alcohol Use: Yes Hx Substance Use: No Hx Substance Use Treatment: No Allergies/Home Meds Allergies/Adverse Reactions: Allergies No Known Allergies Allergy (Verified 04/11/18 18:28) Home Medications: Home Meds Medication Instructions Recorded Confirmed No Known Home Med 04/11/18 04/11/18 Review of Systems - Physician Review All systems were reviewed & negative as marked: Yes - Review of Systems Constitutional: Normal Eyes: Normal ENT: Normal Respiratory: Normal Cardiovascular: Normal Gastrointestinal: Abdominal Pain. absent: Constipation, Diarrhea, Nausea, Vomiting, Hematochezia, Hematemesis Genitourinary Male: Normal Musculoskeletal: Normal Skin: Normal Neurological: Normal Endocrine: Normal Hemo/Lymphatic: Normal Psychiatric: Normal Physical Exam Vital Signs Reviewed: Yes Vital Signs Temp Pulse Resp BP Pulse Ox 04/11/18 18:23 98.1 F 101 H 18 126/94 H 95 Temperature: Afebrile Blood Pressure: Normal Pulse: Regular Respiratory Rate: Normal Appearance: Positive for: Well-Appearing, Non-Toxic, Comfortable Pain Distress: None Mental Status: Positive for: Alert and Oriented X 3 - Systems Exam Head: Present: Atraumatic, Normocephalic Pupils: Present: PERRL Extroacular Muscles: Present: EOMI Conjunctiva: Present: Normal, Icteric (B/L) Mouth: Present: Moist Mucous Membranes Neck: Present: Normal Range of Motion Respiratory/Chest: Present: Clear to Auscultation, Good Air Exchange. No: Respiratory Distress, Accessory Muscle Use Cardiovascular: Present: Regular Rate and Rhythm, Normal S1, S2. No: Murmurs Abdomen: Present: Tenderness (B/ Lower abdomen), Distention, Normal Bowel Sounds, Guarding (Voluntary), Other (Soft). No: Peritoneal Signs, Rebound, McBurney's Point Tender, Rovsing's Sign Present Back: Present: Normal Inspection Upper Extremity: Present: Normal Inspection. No: Cyanosis, Edema Lower Extremity: Present: Normal Inspection. No: Edema Neurological: Present: GCS=15, CN II-XII Intact, Speech Normal Skin: Present: Warm, Dry, Normal Color. No: Rashes Psychiatric: Present: Alert, Oriented x 3, Normal Insight, Normal Concentration Medical Decision Making ED Course and Treatment: 04/12/18 00:44 37yo male in ED for abdominal pain. Labs EKG CXR 1L NS, pepcid will reassess Pt's lab was reviewed and hypokalemia was repeleted Elevated LFT's T. bili and alk phos was noted. Lipase was also elevated. Secondary to the elevated R. bili 9.8 Hepatic US was ordered. Pt however needed admission secondary to the electrolyte imbalance for further evaluation and observation. Case was DW Dr. Blankenship and he accepted pt for admission. Hepatic US IMPRESSION: 1. Coarseness and hepatic fatty infiltration is seen. 2. Mild hepatomegaly. 3. Patency is demonstrated on both the portal and hepatic veins. 4. Abdominal ascites is noted. 5. Thickening diffusely is seen of the gallbladder wall probably due to hypoalb uminemia. 6. Follow up with CT, hepatic protocol is recommended all result and plan was DW the pt and he agreed - Lab Interpretations Lab Results: 04/11/18 19:12 04/11/18 19:12 Lab Results 04/11/18 19:12: Alcohol, Quantitative 256 H 04/11/18 19:12: Sodium 138, Chloride 97 L, Potassium 2.8 L* D, Carbon Dioxide 26 , Anion Gap 18, BUN 6 L, Creatinine 0.4 L, Est GFR ( Amer) > 60, Est GFR (Non-Af Amer) > 60, Random Glucose 120 H, Calcium 8.6, Magnesium 1.5 L, Total Bilirubin 9.8 H, AST 313 H D, ALT 90 H, Alkaline Phosphatase 749 H D, Total Protein 7.9, Albumin 3.5, Globulin 4.3, Albumin/Globulin Ratio 0.8 L, Amylase 141 H, Lipase 649 H 04/11/18 19:12: pO2 162 H, VBG pH 7.47 H, VBG pCO2 39.0 L, VBG HCO3 28.4 H, VBG Total CO2 29.6 H, VBG O2 Sat (Calc) 100.3 H, VBG Base Excess 4.5 H, VBG Potassium 2.7 L, Sodium 134.0, Chloride 97.0 L, Glucose 120 H, Lactate 1.9, FiO2 21.0, Venous Blood Potassium 2.7 L 04/11/18 19:12: PT 16.9 H, INR 1.47, APTT 36.8 H 04/11/18 19:12: WBC 7.5 D, RBC 3.71, Hgb 12.8 L, Hct 36.3 L, MCV 97.8, MCH 34.5, MCHC 35.3, RDW 13.6, Plt Count 124, MPV 11.8 H, Gran % 69.9 H, Lymph % (Auto) 16.5 L, Love % (Auto) 13.2 H, Eos % (Auto) 0.1 L, Baso % (Auto) 0.3, Gran # 5.26, Lymph # (Auto) 1.2, Love # (Auto) 1.0 H, Eos # (Auto) 0.0, Baso # (Auto) 0.02 - RAD Interpretation Radiology Orders: 04/11/18 20:15 HEPATIC [US] Stat - Medication Orders Current Medication Orders: Potassium Chloride (Potassium Chloride 20 Meq/100 Ml) 20 meq in 100 mls @ 50 mls/hr IVPB Q2H STA Stop: 04/11/18 22:03 Discontinued Medications Famotidine (Pepcid) 20 mg IVP STAT STA Stop: 04/11/18 18:36 Last Admin: 04/11/18 19:11 Dose: 20 mg IVP Administration Document 04/11/18 19:11 COBY (Rec: 04/11/18 19:11 COBY VARGAS-PC) Charges for Administration # of IVP Administrations 1 Sodium Chloride (Sodium Chloride 0.9%) 1,000 mls @ 1,000 mls/hr IV .Q1H STA Stop: 04/11/18 19:34 Last Admin: 04/11/18 19:00 Dose: 1,000 mls/hr eMAR Start Stop Document 04/11/18 19:00 COBY (Rec: 04/11/18 19:12 COBY VARGAS-PC) Intravenous Solution Start Date 04/11/18 Start Time 19:00 End Date 04/11/18 End time 20:00 Total Infusion Time 60 Potassium Chloride (K-Dur 20 Meq Er Tab) 40 meq PO STAT STA Stop: 04/11/18 20:05 Disposition/Present on Arrival - Present on Arrival Any Indicators Present on Arrival: No History of DVT/PE: No History of Uncontrolled Diabetes: No Urinary Catheter: No History of Decub. Ulcer: No History Surgical Site Infection Following: None - Disposition Have Diagnosis and Disposition been Completed?: Yes Diagnosis: Pancreatitis, acute, Alcohol abuse, Elevated LFTs, Cirrhosis Disposition: HOSPITALIZED Disposition Time: 20:15 Patient Plan: Admission Patient Problems: Current Active Problems Problem Status Onset Alcohol abuse Acute Cirrhosis Acute Elevated LFTs Acute Pancreatitis, acute Acute Condition: STABLE
[2018-04-11] MEDS ORDERED: Sodium Chloride 0.9% 1,000 ML IV SCH (21:00)
--- NOTE | 2018-04-11 21:00 | CP.PCM.HP ---
<Matheus Lees - Last Filed: 04/12/18 01:57> History of Present Illness - History of Present Illness History of Present Illness: Matheus Lees, PGY1 Hospital H&P This is a 37 year old male with PMH of alcohol abuse and pancreatitis presenting for 4 day history of abdominal pain. Pain is located in the B/L lower abdominal area, gradual in onset, intermittent, rated 10/10 at worst, non radiating, sharp and associated with nausea and 2 episodes of non bloody vomiting. Patient states abdominal pain feels similar to previous episodes of pancreatitis. Last episode was on 07/2017. He states he drinks a half gallon of vokda every day. His last alcohol drink was this morning at 8am and had 4 drinks. He denies any previous endoscopy/colonoscopy. He denies CP, SOB, headaches, fevers, chills, back pain, urinary complaints, numbness, tingling, swelling, diarrhea, constipation, melena, weight loss/gain, recent trauma, sick contacts and travel. 12 point ROS noted here, otherwise unremarkable. PMD: none PMH: alcohol abuse, pancreatitis in 07/2017, 11/2016 SH: drinks half a gallon of vodka daily for one year, one pint per day for many years before that. Smokes 1ppd for the last 15 years. Denies drug use. Lives with a friend in [place]. Has no local family Sx: denies any history of surgeries FH: denies All: NKDA Meds: denies Present on Admission - Present on Admission Any Indicators Present on Admission: No Past Patient History - Infectious Disease Hx of Infectious Diseases: None - Past Social History Smoking Status: Heavy Smoker > 10 Cigarettes Daily - CARDIAC Hx Cardiac Disorders: No - PULMONARY Hx Respiratory Disorders: No - NEUROLOGICAL Hx Neurological Disorder: No - HEENT Hx HEENT Problems: No - RENAL Hx Chronic Kidney Disease: No - ENDOCRINE/METABOLIC Hx Endocrine Disorders: No - HEMATOLOGICAL/ONCOLOGICAL Hx Blood Disorders: No - INTEGUMENTARY Hx Dermatological Problems: Yes Other/Comment: scratch ponce ble - MUSCULOSKELETAL/RHEUMATOLOGICAL Hx Musculoskeletal Disorders: No - GASTROINTESTINAL Hx Gastrointestinal Disorders: Yes (gi bleed) - GENITOURINARY/GYNECOLOGICAL Hx Genitourinary Disorders: No - PSYCHIATRIC Hx Psychophysiologic Disorder: No Hx Substance Use: No - SURGICAL HISTORY Hx Surgeries: No Meds Allergies/Adverse Reactions: Allergies Allergy/AdvReac Type Severity Reaction Status Date / Time No Known Allergies Allergy Verified 04/11/18 18:28 Physical Exam - Constitutional Appears: No Acute Distress Additional comments: generalized jaundice - Head Exam Head Exam: ATRAUMATIC, NORMAL INSPECTION - Eye Exam Eye Exam: PERRL, Scleral icterus Pupil Exam: PERRL - ENT Exam ENT Exam: Mucous Membranes Dry - Respiratory Exam Respiratory Exam: Clear to Auscultation Bilateral. absent: Respiratory Distress - Cardiovascular Exam Cardiovascular Exam: REGULAR RHYTHM, +S1, +S2 - GI/Abdominal Exam GI & Abdominal Exam: Distended, Normal Bowel Sounds. absent: Guarding Additional comments: B/L lower abdominal tenderness. Mayorga sign is negative - Extremities Exam Extremities exam: Positive for: normal inspection. Negative for: calf tenderness - Back Exam Back exam: NORMAL INSPECTION. absent: CVA tenderness (L), CVA tenderness (R) - Neurological Exam Neurological exam: Alert, Oriented x3 Additional comments: no asterixis appeciated - Skin Skin Exam: Warm Additional comments: jaundice Results - Vital Signs Recent Vital Signs: Last Vital Signs Temp 98.1 F 04/11/18 18:23 Pulse 101 H 04/11/18 18:23 Resp 18 04/11/18 18:23 BP 126/94 H 04/11/18 18:23 Pulse Ox 95 04/11/18 18:23 - Labs Result Diagrams: 04/11/18 19:12 04/11/18 19:12 Labs: Laboratory Results - last 24 hr 04/11/18 04/11/18 04/11/18 19:12 19:12 19:12 WBC 7.5 D RBC 3.71 Hgb 12.8 L Hct 36.3 L MCV 97.8 MCH 34.5 MCHC 35.3 RDW 13.6 Plt Count 124 MPV 11.8 H Gran % 69.9 H Lymph % (Auto) 16.5 L [place] % (Auto) 13.2 H Eos % (Auto) 0.1 L Baso % (Auto) 0.3 Gran # 5.26 Lymph # (Auto) 1.2 [place] # (Auto) 1.0 H Eos # (Auto) 0.0 Baso # (Auto) 0.02 PT 16.9 H INR 1.47 APTT 36.8 H pO2 162 H VBG pH 7.47 H VBG pCO2 39.0 L VBG HCO3 28.4 H VBG Total CO2 29.6 H VBG O2 Sat (Calc) 100.3 H VBG Base Excess 4.5 H VBG Potassium 2.7 L Sodium 134.0 Chloride 97.0 L Glucose 120 H Lactate 1.9 FiO2 21.0 Potassium Carbon Dioxide Anion Gap BUN Creatinine Est GFR ( Amer) Est GFR (Non-Af Amer) Random Glucose Calcium Magnesium Total Bilirubin AST ALT Alkaline Phosphatase Total Protein Albumin Globulin Albumin/Globulin Ratio Amylase Lipase Venous Blood Potassium 2.7 L Alcohol, Quantitative 04/11/18 04/11/18 19:12 19:12 WBC RBC Hgb Hct MCV MCH MCHC RDW Plt Count MPV Gran % Lymph % (Auto) [place] % (Auto) Eos % (Auto) Baso % (Auto) Gran # Lymph # (Auto) [place] # (Auto) Eos # (Auto) Baso # (Auto) PT INR APTT pO2 VBG pH VBG pCO2 VBG HCO3 VBG Total CO2 VBG O2 Sat (Calc) VBG Base Excess VBG Potassium Sodium 138 Chloride 97 L Glucose Lactate FiO2 Potassium 2.8 L* D Carbon Dioxide 26 Anion Gap 18 BUN 6 L Creatinine 0.4 L Est GFR ( Amer) > 60 Est GFR (Non-Af Amer) > 60 Random Glucose 120 H Calcium 8.6 Magnesium 1.5 L Total Bilirubin 9.8 H AST 313 H D ALT 90 H Alkaline Phosphatase 749 H D Total Protein 7.9 Albumin 3.5 Globulin 4.3 Albumin/Globulin Ratio 0.8 L Amylase 141 H Lipase 649 H Venous Blood Potassium Alcohol, Quantitative 256 H Assessment & Plan - Assessment and Plan (Free Text) Assessment: This is a 37 year old male with PMH of alcohol abuse and pancreatitis presenting for 4 day history of abdominal pain. Plan: Pancreatitis: -hepatic US pending -continue fluids -NPO except meds -morphine prn for pain Elevated T.Bili, Alk phos: -concern for obstruction, malignancy -CTAP pending -CEA, AFP pending -hepatitis panel pending -repeat PT/INR in AM -GI on consult, Dr. Zepeda Hypokalemia: -initially K 2.8 -given 20mEQ IV and 40mEQ KCL in ED -follow up AM labs Hypomagnesia: -initially Mg 1.5 -repleted, follow up AM labs Alcohol abuse: -initial alcohol level was 256, last drink was 8am on 04/11 -[facility] protocol -ativan prn for seizures -seizure, aspiration, fall precautions -banana bag, folate, thiamine, multivitamin -drug screen pending PPX with protonix and heparin Patient seen and discussed with attending, Dr. Blankenship <Triston Blankenship - Last Filed: 04/12/18 06:12> Results - Vital Signs Recent Vital Signs: Last Vital Signs Temp 98.1 F 04/11/18 18:23 Pulse 76 04/12/18 02:17 Resp 20 04/12/18 02:43 BP 111/76 04/12/18 02:12 Pulse Ox 98 04/12/18 02:17 - Labs Result Diagrams: 04/11/18 19:12 04/11/18 19:12 Labs: Laboratory Results - last 24 hr 04/11/18 04/11/18 04/11/18 19:12 19:12 19:12 WBC 7.5 D RBC 3.71 Hgb 12.8 L Hct 36.3 L MCV 97.8 MCH 34.5 MCHC 35.3 RDW 13.6 Plt Count 124 MPV 11.8 H Gran % 69.9 H Lymph % (Auto) 16.5 L [place] % (Auto) 13.2 H Eos % (Auto) 0.1 L Baso % (Auto) 0.3 Gran # 5.26 Lymph # (Auto) 1.2 [place] # (Auto) 1.0 H Eos # (Auto) 0.0 Baso # (Auto) 0.02 PT 16.9 H INR 1.47 APTT 36.8 H pO2 162 H VBG pH 7.47 H VBG pCO2 39.0 L VBG HCO3 28.4 H VBG Total CO2 29.6 H VBG O2 Sat (Calc) 100.3 H VBG Base Excess 4.5 H VBG Potassium 2.7 L Sodium 134.0 Chloride 97.0 L Glucose 120 H Lactate 1.9 FiO2 21.0 Potassium Carbon Dioxide Anion Gap BUN Creatinine Est GFR ( Amer) Est GFR (Non-Af Amer) Random Glucose Calcium Magnesium Total Bilirubin AST ALT Alkaline Phosphatase Total Protein Albumin Globulin Albumin/Globulin Ratio Amylase Lipase Venous Blood Potassium 2.7 L Urine Color Urine Appearance Urine pH Ur Specific [place] Urine Protein Urine Glucose (UA) Urine Ketones Urine Blood Urine Nitrate Urine Bilirubin Urine Urobilinogen Ur Leukocyte Esterase Urine RBC Urine WBC Ur Epithelial Cells Urine Bacteria Urine Opiates Screen Urine Methadone Screen Ur Barbiturates Screen Ur Phencyclidine Scrn Ur Amphetamines Screen U Benzodiazepines Scrn U Oth Cocaine Metabols U Cannabinoids Screen Alcohol, Quantitative 04/11/18 04/11/18 04/11/18 19:12 19:12 20:51 WBC RBC Hgb Hct MCV MCH MCHC RDW Plt Count MPV Gran % Lymph % (Auto) [place] % (Auto) Eos % (Auto) Baso % (Auto) Gran # Lymph # (Auto) [place] # (Auto) Eos # (Auto) Baso # (Auto) PT INR APTT pO2 VBG pH VBG pCO2 VBG HCO3 VBG Total CO2 VBG O2 Sat (Calc) VBG Base Excess VBG Potassium Sodium 138 Chloride 97 L Glucose Lactate FiO2 Potassium 2.8 L* D Carbon Dioxide 26 Anion Gap 18 BUN 6 L Creatinine 0.4 L Est GFR ( Amer) > 60 Est GFR (Non-Af Amer) > 60 Random Glucose 120 H Calcium 8.6 Magnesium 1.5 L Total Bilirubin 9.8 H AST 313 H D ALT 90 H Alkaline Phosphatase 749 H D Total Protein 7.9 Albumin 3.5 Globulin 4.3 Albumin/Globulin Ratio 0.8 L Amylase 141 H Lipase 649 H Venous Blood Potassium Urine Color Dark yellow Urine Appearance Clear Urine pH 7.0 Ur Specific [place] 1.010 Urine Protein Negative Urine Glucose (UA) Negative Urine Ketones Negative Urine Blood Trace-intact H Urine Nitrate Negative Urine Bilirubin Large H Urine Urobilinogen 4.0 H Ur Leukocyte Esterase Negative Urine RBC 0 - 2 Urine WBC Negative Ur Epithelial Cells None Urine Bacteria Neg Urine Opiates Screen Urine Methadone Screen Ur Barbiturates Screen Ur Phencyclidine Scrn Ur Amphetamines Screen U Benzodiazepines Scrn U Oth Cocaine Metabols U Cannabinoids Screen Alcohol, Quantitative 256 H 04/12/18 02:30 WBC RBC Hgb Hct MCV MCH MCHC RDW Plt Count MPV Gran % Lymph % (Auto) [place] % (Auto) Eos % (Auto) Baso % (Auto) Gran # Lymph # (Auto) [place] # (Auto) Eos # (Auto) Baso # (Auto) PT INR APTT pO2 VBG pH VBG pCO2 VBG HCO3 VBG Total CO2 VBG O2 Sat (Calc) VBG Base Excess VBG Potassium Sodium Chloride Glucose Lactate FiO2 Potassium Carbon Dioxide Anion Gap BUN Creatinine Est GFR ( Amer) Est GFR (Non-Af Amer) Random Glucose Calcium Magnesium Total Bilirubin AST ALT Alkaline Phosphatase Total Protein Albumin Globulin Albumin/Globulin Ratio Amylase Lipase Venous Blood Potassium Urine Color Urine Appearance Urine pH Ur Specific [place] Urine Protein Urine Glucose (UA) Urine Ketones Urine Blood Urine Nitrate Urine Bilirubin Urine Urobilinogen Ur Leukocyte Esterase Urine RBC Urine WBC Ur Epithelial Cells Urine Bacteria Urine Opiates Screen Negative Urine Methadone Screen Negative Ur Barbiturates Screen Negative Ur Phencyclidine Scrn Negative Ur Amphetamines Screen Negative U Benzodiazepines Scrn Negative U Oth Cocaine Metabols Negative U Cannabinoids Screen Negative Alcohol, Quantitative Attending/Attestation - Attestation I have personally seen and examined this patient.: Yes I have fully participated in the care of the patient.: Yes I have reviewed all pertinent clinical information: Yes Notes (Text): 37y/o Chronic alcoholic presented with abdominal pain with associated NBNB vomiting for a few days. Pt is jaundiced and has mild softly distended abdomen. Lab significant for T. Chance of 9.8, Alk P of 749, Lipase of 649, K of 2.8. - will get CT Abd pelvis - GI consult - send for tumor markers - initiate [facility] protocol 04/12/18 06:07
[2018-04-11 21:02] LABS: URINE BILIRUBIN LARGE (NEGATIVE); URINE BLOOD TRACE-INTACT (NEGATIVE); URINE COLOR DARK YELLOW (YELLOW); URINE GLUCOSE (UA) NEGATIVE (NEGATIVE); URINE LEUKOCYTE ESTERASE NEGATIVE Leu/uL (NEGATIVE); URINE PROTEIN NEGATIVE mg/dL (<30 mg/dL)
[2018-04-11] MEDS ORDERED: Magnesium Sulfate 1 gm in D5W 1 GM/100 ML BAG IVPB ONE (21:02)
[2018-04-11 21:03] LABS: URINE APPEARANCE CLEAR (CLEAR)
[2018-04-11 21:13] LABS: URINE BACTERIA NEG (NEG); URINE RBC 0 - 2 /hpf (0-2); URINE WBC NEGATIVE /hpf (0-6)
[2018-04-11] MEDS ORDERED: Multivitamin (MVI) 10 ML, Thiamine 100 MG, Folic Acid 1 MG in Sodium Chloride 0.9% 1,00... IV ONE (21:22)
[2018-04-11] MEDS ORDERED: Morphine 2 mg/ml ISec IVP PRN (21:27)
[2018-04-11] MEDS ORDERED: Pantoprazole 40 mg EC Tab PO STA (21:30)
[2018-04-11] MEDS ORDERED: Iohexol 300 100 ML IJ ONE (21:35)
[2018-04-12] MEDS ORDERED: Sodium Chloride 0.9% 1,000 ML IV SCH (03:45)
[2018-04-12 04:16] LABS: BARBITURATES, UR NEGATIVE (NEGATIVE); BENZODIAZEPINES, UR NEGATIVE (NEGATIVE); OPIATES, UR NEGATIVE (NEGATIVE); PHENCYCLIDINE, UR NEGATIVE (NEGATIVE)
[2018-04-12 07:42] LABS: BASO # 0.01 K/mm3 (0.0-2.0); BASO % 0.2 % (0.0-3.0); EOS % 0.3 % (1.5-5.0); GRAN # 4.48 (1.4-6.5); GRAN % 70.9 % (50.0-68.0); HEMOGLOBIN 12.2 g/dL (14.0-18.0); LYMPH # 1.3 (1.2-3.4); LYMPH % 20.1 % (22.0-35.0); MEAN CELL VOLUME 98.9 fl (80.0-105.0); MEAN CORPUSCULAR HEMOGLOBIN 34.2 pg (25.0-35.0); MEAN CORPUSCULAR HGB CONC 34.6 g/dl (31.0-37.0); MEAN PLATELET VOLUME 11.3 fl (7.0-11.0); MONO # 0.5 (0.1-0.6); MONO % 8.5 % (1.0-6.0); RBC 3.57 10^6/uL (3.5-6.1); RED CELL DISTRIBUTION WIDTH 13.9 % (11.5-14.5); WHITE BLOOD COUNT 6.3 10^3/uL (4.5-11.0)
[2018-04-12 07:47] LABS: INR 1.49; PROTHROMBIN TIME 17.3 SECONDS (9.4-12.5)
[2018-04-12 08:12] LABS: ALB/GLOB RATIO 0.8 (1.1-1.8); ALBUMIN 3.3 g/dL (3.0-4.8); ALT/SGPT 87 U/L (7-56); AST/SGOT 272 U/L (17-59); BLOOD UREA NITROGEN 5 mg/dL (7-21); CALCIUM 7.9 mg/dL (8.4-10.5); GFR NON-AFRICAN AMERICAN > 60
[2018-04-12] MEDS: Multivitamin With Minerals Tab PO SCH (08:53)
--- NOTE | 2018-04-12 09:35 | RAD ---
Date of service: 04/12/2018 HISTORY: admission COMPARISON: Portable chest 11/18/2016. FINDINGS: LUNGS: No active pulmonary disease. PLEURA: No significant pleural effusion identified, no pneumothorax apparent. CARDIOVASCULAR: No aortic atherosclerotic calcification present. Normal cardiac size. No pulmonary vascular congestion. OSSEOUS STRUCTURES: Old healed left rib fractures reiterated. VISUALIZED UPPER ABDOMEN: Elevated right hemidiaphragm reiterated, etiology indeterminate once again. OTHER FINDINGS: None. IMPRESSION: No acute infiltrate, pleural effusion or pneumothorax bilaterally. No pulmonary vascular congestion. Elevated right hemidiaphragm reiterated as well as old healed left rib fractures.
[2018-04-12] MEDS ORDERED: Magnesium Sulfate 2 gm/50 ml 2 GM/50 ML BAG IVPB ONE (09:36)
--- NOTE | 2018-04-12 09:52 | CP.PCM.PN ---
<Livan Noel - Last Filed: 04/12/18 14:59> Subjective - Date & Time of Evaluation Date of Evaluation: 04/12/18 Time of Evaluation: 09:51 - Subjective Subjective: Livan Noel DO, PGY-1 Hospitalist Progress Note for Dr. Kelly Patient was seen and examined at bedside this AM. Offers no new complaints this AM and states his abdominal pain has improved. He describes the abdominal pain as a dull, achy sensation that is improved to 4/10 in severity. He states it is located on his lower abdomen bilaterally. Objective - Vital Signs/Intake and Output Vital Signs (last 24 hours): Temp Pulse Resp BP Pulse Ox 98.1 F 83 20 111/76 98 04/11/18 18:23 04/12/18 06:00 04/12/18 02:43 04/12/18 02:12 04/12/18 02:17 Intake and Output: 04/12/18 04/12/18 06:59 18:59 Intake Total 0 Balance 0 - Medications Medications: Current Medications Folic Acid (Folic Acid) 1 mg PO DAILY [facility] Last Admin: 04/12/18 09:02 Dose: 1 mg Heparin Sodium (Porcine) (Heparin) 5,000 units SC Q12 [facility]; Protocol Last Admin: 04/12/18 09:01 Dose: 5,000 units Sodium Chloride (Sodium Chloride 0.9%) 1,000 mls @ 100 mls/hr IV .Q10H [facility] Last Admin: 04/12/18 05:18 Dose: 100 mls/hr Magnesium Sulfate (Magnesium Sulfate 2 Gm/50 Ml Water) 2 gm in 50 mls @ 50 mls/hr IVPB ONCE ONE Stop: 04/12/18 10:35 Lorazepam (Ativan) 1 mg IVP Q6H PRN; Protocol PRN Reason: Anxiety Last Admin: 04/12/18 08:52 Dose: 1 mg Morphine Sulfate (Morphine) 1 mg IVP Q4H PRN PRN Reason: Pain, severe (8-10) Multivitamins/Minerals (Therapeutic-M Tab) 1 tab PO 0800 [facility] Last Admin: 04/12/18 08:53 Dose: 1 tab Pantoprazole Sodium (Protonix Inj) 40 mg IVP DAILY [facility] Last Admin: 04/12/18 09:01 Dose: 40 mg Thiamine HCl (Vitamin B1 Tab) 50 mg PO DAILY [facility] Last Admin: 04/12/18 09:02 Dose: 50 mg - Labs Labs: 04/12/18 07:00 04/12/18 07:00 PT 17.3 SECONDS (9.4-12.5) H 04/12/18 07:00 INR 1.49 04/12/18 07:00 APTT 36.8 Seconds (25.1-36.5) H 04/11/18 19:12 - Constitutional Appears: Non-toxic, No Acute Distress - Head Exam Head Exam: ATRAUMATIC, NORMOCEPHALIC - Eye Exam Eye Exam: EOMI, PERRL, Scleral icterus - ENT Exam ENT Exam: Mucous Membranes Moist - Neck Exam Neck Exam: Full ROM, Normal Inspection - Respiratory Exam Respiratory Exam: Clear to Ausculation Bilateral, NORMAL BREATHING PATTERN. absent: Rales, Rhonchi, Wheezes - Cardiovascular Exam Cardiovascular Exam: REGULAR RHYTHM, RRR, +S1, +S2. absent: Gallop, Rubs, Murmur - GI/Abdominal Exam GI & Abdominal Exam: Soft, Hypoactive Bowel Sounds, Organomegaly (palpable hepatosplenomegaly on exam). absent: Distended, Guarding, Tenderness - Extremities Exam Extremities Exam: Full ROM, Normal Inspection - Back Exam Back Exam: Full ROM. absent: rash noted - Neurological Exam Neurological Exam: Alert, Awake, Oriented x3 - Psychiatric Exam Psychiatric exam: Normal Affect, Normal Mood - Skin Skin Exam: Dry, Intact, Warm Additional comments: appears diffusely jaundiced Assessment and Plan - Assessment and Plan (Free Text) Assessment: 37 yo M with PMH of acute pancreatitis x 2 and alcohol abuse presented to ED with worsening lower abdominal pain, nausea, and vomiting. He was found to have lipase of 649 in ED. Plan: 1. Acute alcoholic pancreatitis Likely 2/2 chronic EtOH abuse, Bisap score 1 Patient admits to drinking at least pint of vodka everyday for past > 10 years Continue aggressive fluid hydration with NS @ 200 cc/hr Monitor lipase, AST, ALT Monitor for worsening s/sx of alcohol withdrawal CIWA protocol Continue seizure, aspiratio pxns GI consulted, recs appreciated 2. Cirrhosis CT abdomen/pelvis completed showed changes c/w cirrhosis, portal HTN, diffuse ascites worse over the liver, hepatosplenomegaly, a vague vascular lesion in the right lobe approx 2 cm Also showed emphysematous blebs in lower lobes b/l Patient also appears jaundiced and icteric on exam, further suggesting worsening cirrhosis Maddrey score of 30, MELD of 20 Per GI recs, no need for steroids at this time Will plan on paracentesis of surrounding liver ascites F/u AFP, Hep panel GI following, recs appreciated 3. Liver mass Seen on CTAP Per GI recs, will need biopsy to r/o HCC Will also need triple phase CT to further characterize this lesion F/u additional GI recs 4. Hypokalemia 2.8 on admission, this AM is 3.6 s/p PO and IV replacement Continue to monitor 5. Hypomagnesemia Repleted, continue to monitor 6. EtOH abuse Counseled patient on importance of cessation, especially given dx of cirrhosis with likely need for transplant in future Continue CiWA protocol 7. Tobacco abuse Patient with emphysematous changes in lower lobes b/l May have underlying lung disease Currently no symptoms of cough or dyspnea But consider chest CT if these symptoms develop or as an outpatient DVT/GI PPX: Full Code NPO Monitor on telemetry Case and plan reviewed and discussed with my attending Dr. Leticia Noel, DO IM Resident PGY-1 Pager: [phone] <Shaka Kelly - Last Filed: 04/14/18 16:05> Objective - Vital Signs/Intake and Output Vital Signs (last 24 hours): Temp Pulse Resp BP Pulse Ox 98 F 86 20 113/83 98 04/14/18 12:00 04/14/18 12:00 04/14/18 12:00 04/14/18 12:00 04/14/18 06:00 Intake and Output: 04/14/18 04/14/18 06:59 18:59 Intake Total 480 Balance 480 - Medications Medications: Current Medications Folic Acid (Folic Acid) 1 mg PO DAILY [facility] Last Admin: 04/14/18 09:54 Dose: 1 mg Heparin Sodium (Porcine) (Heparin) 5,000 units SC Q12 [facility]; Protocol Last Admin: 04/14/18 09:54 Dose: 5,000 units Sodium Chloride (Sodium Chloride 0.9%) 1,000 mls @ 100 mls/hr IV .Q10H [facility] Last Admin: 04/14/18 14:21 Dose: 100 mls/hr Lorazepam (Ativan) 1 mg IVP Q6H PRN; Protocol PRN Reason: Anxiety Last Admin: 04/14/18 00:33 Dose: 1 mg Morphine Sulfate (Morphine) 1 mg IVP Q4H PRN PRN Reason: Pain, severe (8-10) Multivitamins/Minerals (Therapeutic-M Tab) 1 tab PO 0800 [facility] Last Admin: 04/14/18 09:54 Dose: 1 tab Pantoprazole Sodium (Protonix Ec Tab) 40 mg PO 0600 [facility] Prednisone (Prednisone Tab) 40 mg PO DAILY [facility] Last Admin: 04/14/18 09:54 Dose: 40 mg Thiamine HCl (Vitamin B1 Tab) 50 mg PO DAILY [facility] Last Admin: 04/14/18 09:53 Dose: 50 mg - Labs Labs: 04/14/18 05:30 04/14/18 05:30 PT 18.7 SECONDS (9.4-12.5) H 04/14/18 05:30 INR 1.61 04/14/18 05:30 APTT 36.8 Seconds (25.1-36.5) H 04/11/18 19:12 Attending/Attestation - Attestation I have personally seen and examined this patient.: Yes I have fully participated in the care of the patient.: Yes I have reviewed all pertinent clinical information, including history, physical exam and plan: Yes Notes (Text): 04/14/18 15:59 Attending note; Patient seen and examined with resident. Patient is alert and awake. Complaining of mild abdominal pain. Denies any nausea, vomiting. Complaining of mild abdominal distention. Currently nothing by mouth. On IV fluids. Patient is a 37 -year-old male with PMH of acute pancreatitis x 2 and alcohol abuse presented to ED with worsening lower abdominal pain, nausea, and vomiting. He was found to have lipase of 649. 1.Acute pancreatitis; secondary to alcohol abuse. Continue IV fluids. Pain management. 2. Acute alcoholic hepatitis; follow-up Maddery score and MELD score. 3. Cirrhosis with ascites; CT scan showed hepatomegaly with cirrhosis, moderate ascites and splenomegaly. There is 2 cm hyperdense nodule in the right lobe of the liver. 4. Ascites; patient will get diagnostic paracentesis today. 5. Alcohol abuse; continue multivitamin, thiamine, folic acid. Monitor with CITX protocol. IV Ativan when necessary. Complete alcohol cessation is strongly advised. Patient will be referred to [facility] hepatology clinic upon discharge. The diagnosis, follow-up plan discussed with patient in detail. [place] [facility] [place].
--- NOTE | 2018-04-12 11:11 | CP.PCM.CON ---
<Jairon Dobbs - Last Filed: 04/12/18 11:54> History of Present Illness - History of Present Illness History of Present Illness: PGY-4 GI Fellow Consult Note Pt is a 37 yo WM with h/o EtOH abuse with EtOH induced Pancreatitis presenting with complaint of abdominal pain. He states that over the last several days he has had progressively worse, sharp, non-radiating, bilateral lower quadrant pain as high as 10/10. Denies any precipitating or alleviating factors. He also reports some mild abdominal distention. States symptoms feel similar to prior pancreatitis episodes. He denies any f/c,n/v, melena nor hematochezia. States his last drink was in the AM just prior to admission. 12 point ROS negative other than stated above MHx: See above SurgHx: Denied Meds: None FamHx: Denied GI problems SocHx: Half gallon vodka daily, +1 ppd Tob, denies illicits All: NKDA Past Patient History - Infectious Disease Hx of Infectious Diseases: None - Past Social History Smoking Status: Current Some Days Smoker - CARDIAC Hx Cardiac Disorders: No Hx Angina: No Hx Cardia Arrhythmia: No Hx Circulatory Problems: No Hx Congestive Heart Failure: No Hx Heart Murmur: No Hx Heart Transplant: No Hx Hypercholesterolemia: No Hx Hypertension: No Hx Internal Defibrillator: No Hx Mitral Valve Prolapse: No Hx Pacemaker: No Hx Peripheral Edema: No Hx Peripheral Vascular Disease: No - PULMONARY Hx Respiratory Disorders: No Hx Asthma: No Hx Bronchitis: No Hx Chronic Obstructive Pulmonary Disease (COPD): No Hx Emphysema: No Hx Pneumonia: No Hx Respiratory Aspiration: No Hx Respiratory Tract Infection: No Hx Sleep Apnea: No Hx Tuberculosis: No - NEUROLOGICAL Hx Neurological Disorder: No Hx Alzheimer's Disease: No HX Cerebrovascular Accident: No Hx Dementia: No Hx Dizziness: No Hx Meningitis: No Hx Migraine: No Hx Parkinson's Disease: No Hx Seizures: No Hx Transient Ischemic Attacks (TIA): No - HEENT Hx HEENT Problems: No Hx Blind: No Hx Cataracts: No Hx Deafness: No Hx Difficulty Chewing: No Hx Epistaxis: No Hx Glaucoma: No Hx Macular Degeneration: No - RENAL Hx Chronic Kidney Disease: No Hx Dialysis: No Hx Kidney Stones: No Hx Neurogenic Bladder: No Hx Pyelonephritis: No Hx Renal (Kidney) Cancer: No Hx Renal Failure: No - ENDOCRINE/METABOLIC Hx Endocrine Disorders: No Hx Adrenal Cancer: No Hx Diabetes Insipidus: No Hx Diabetes Mellitus Type 1: No Hx Diabetes Mellitus Type 2: No Hx Hyperthyroidism: No Hx Hypothyroidism: No Hx Systemic Lupus Erythematosus: No - HEMATOLOGICAL/ONCOLOGICAL Hx Blood Disorders: No Hx AIDS: No Hx Anemia: No Hx Cancer: No Hx Chemotherapy: No Hx Cirrhosis: No Hx Hemophilia: No Hx Hepatitis A: No Hx Hepatitis B: No Hx Hepatitis C: No Hx Human Immunodeficiency Virus (HIV): No Hx Metastesis: No Hx Shingles: No Hx Sickle Cell Disease: No Hx Unexplained Bleeding: No - INTEGUMENTARY Hx Dermatological Problems: No Hx Basil Cell: No Hx Eczema: No Hx Melanoma: No Hx Psoriasis: No Hx Squamous Cell: No - MUSCULOSKELETAL/RHEUMATOLOGICAL Hx Musculoskeletal Disorders: No Hx Arthritis: No Hx Back Pain: No Hx Degenerative Joint Disease: No Hx Falls: No Hx Fractures: No Hx Gout: No Hx Herniated Disk: No Hx Myasthenia Gravis: No Hx Osteoarthritis: No Hx Osteomyelitis: No Hx Osteoporosis: No Hx Rhabdomyolysis: No Hx Spinal Stenosis: No Hx Unsteady Gait: No - GASTROINTESTINAL Hx Gastrointestinal Disorders: No Hx Colostomy: No Hx Crohn's Disease: No Hx Diverticulitis: No Hx Gall Bladder Disease: No Hx Gastroesophageal Reflux: No Hx Ileostomy: No Hx Liver Failure: No Hx Pancreatitis: No HX Swallowing Problems: No Hx Ulcer: No - GENITOURINARY/GYNECOLOGICAL Hx Genitourinary Disorders: No Hx Hematuria: No Hx Incontinence: No Hx Prostate Problems: No Hx Sexually Transmitted Disorders: No Hx Urinary Tract Infection: No - PSYCHIATRIC Hx Psychophysiologic Disorder: No Hx Anxiety: No Hx Bipolar Disorder: No Hx Depression: No Hx Emotional Abuse: No Hx Hallucinations: No Hx Panic Symptoms: No Hx Paranoia: No Hx Post Traumatic Stress Disorder: No Hx Psychosis: No Hx Physical Abuse: No Hx Schizophrenia: No Hx Sexual Abuse: No - SURGICAL HISTORY Hx Surgeries: No Hx Amputation: No Hx Appendectomy: No Hx Cardiac Catheterization: No Hx Cholecystectomy: No Hx Coronary Stent: No Hx Gastric Bypass Surgery: No Hx Hysterectomy: No Hx Joint Replacement: No Hx Kidney Transplant: No Hx Liver Transplant: No Hx Mastectomy: No Hx Musculoskeletal Surgery: No Hx Open Heart Surgery: No Hx Orthopedic Surgery: No Hx Splenectomy: No Hx Valve Replacement: No Meds Allergies/Adverse Reactions: Allergies Allergy/AdvReac Type Severity Reaction Status Date / Time No Known Allergies Allergy Verified 04/11/18 18:28 - Medications Medications: Current Medications Folic Acid (Folic Acid) [address] [facility] Last Admin: 04/12/18 09:02 Dose: 1 mg Heparin Sodium (Porcine) (Heparin) 5,[address] [facility]; Protocol Last Admin: 04/12/18 09:01 Dose: 5,000 units Sodium Chloride (Sodium Chloride 0.9%) 1,000 mls @ 200 mls/hr IV .Q5H [facility] Lorazepam (Ativan) 1 mg IVP Q6H PRN; Protocol PRN Reason: Anxiety Last Admin: 04/12/18 08:52 Dose: 1 mg Morphine Sulfate (Morphine) 1 mg IVP Q4H PRN PRN Reason: Pain, severe (8-10) Multivitamins/Minerals (Therapeutic-M Tab) [address] [facility] Last Admin: 04/12/18 08:53 Dose: 1 tab Pantoprazole Sodium (Protonix Inj) [address] [facility] Last Admin: 04/12/18 09:01 Dose: 40 mg Thiamine HCl (Vitamin B1 Tab) [address] [facility] Last Admin: 04/12/18 09:02 Dose: 50 mg Physical Exam - Constitutional Appears: No Acute Distress, Chronically Ill - Head Exam Head Exam: ATRAUMATIC, NORMAL INSPECTION - Eye Exam Eye Exam: EOMI, Scleral icterus - ENT Exam ENT Exam: Mucous Membranes Dry, Normal External Ear Exam. absent: Mucous Membranes Moist - Respiratory Exam Respiratory Exam: Clear to Auscultation Bilateral, NORMAL BREATHING PATTERN. absent: Accessory Muscle Use, Respiratory Distress - Cardiovascular Exam Cardiovascular Exam: REGULAR RHYTHM, RRR - GI/Abdominal Exam GI & Abdominal Exam: Distended, Normal Bowel Sounds, Soft, Tenderness (w/o gua rding in bilateral lower quads, +flank fullness and +umbilical veins, dull to percussion in lower quads). absent: Bruit, Diminished Bowel Sounds, Firm, Guarding, Hernia, Mass, Organomegaly, Pulsatile Mass, Rebound, Rigid - Rectal Exam Rectal Exam: Deferred - Extremities Exam Extremities exam: Positive for: normal inspection. Negative for: pedal edema - Neurological Exam Neurological exam: Alert, CN II-XII Intact, Oriented x3 Additional comments: no asterixis - Psychiatric Exam Psychiatric exam: Normal Affect, Normal Mood - Skin Skin Exam: Warm Additional comments: jaundiced Results - Vital Signs Recent Vital Signs: Last Vital Signs Temp 98.1 F 04/11/18 18:23 Pulse 83 04/12/18 06:00 Resp 20 04/12/18 02:43 BP 111/76 04/12/18 02:12 Pulse Ox 98 04/12/18 02:17 - Labs Result Diagrams: 04/12/18 07:00 04/12/18 07:00 Labs: Laboratory Results - last 24 hr 04/11/18 04/11/18 04/11/18 19:12 19:12 19:12 WBC 7.5 D RBC 3.71 Hgb 12.8 L Hct 36.3 L MCV 97.8 MCH 34.5 MCHC 35.3 RDW 13.6 Plt Count 124 MPV 11.8 H Gran % 69.9 H Lymph % (Auto) 16.5 L [place] % (Auto) 13.2 H Eos % (Auto) 0.1 L Baso % (Auto) 0.3 Gran # 5.26 Lymph # (Auto) 1.2 [place] # (Auto) 1.0 H Eos # (Auto) 0.0 Baso # (Auto) 0.02 PT 16.9 H INR 1.47 APTT 36.8 H pO2 162 H VBG pH 7.47 H VBG pCO2 39.0 L VBG HCO3 28.4 H VBG Total CO2 29.6 H VBG O2 Sat (Calc) 100.3 H VBG Base Excess 4.5 H VBG Potassium 2.7 L Sodium 134.0 Chloride 97.0 L Glucose 120 H Lactate 1.9 FiO2 21.0 Potassium Carbon Dioxide Anion Gap BUN Creatinine Est GFR ( Amer) Est GFR (Non-Af Amer) Random Glucose Calcium Phosphorus Magnesium Total Bilirubin AST ALT Alkaline Phosphatase Total Creatine Kinase Total Protein Albumin Globulin Albumin/Globulin Ratio Amylase Lipase Carcinoembryonic Ag Venous Blood Potassium 2.7 L Urine Color Urine Appearance Urine pH Ur Specific [place] Urine Protein Urine Glucose (UA) Urine Ketones Urine Blood Urine Nitrate Urine Bilirubin Urine Urobilinogen Ur Leukocyte Esterase Urine RBC Urine WBC Ur Epithelial Cells Urine Bacteria Urine Opiates Screen Urine Methadone Screen Ur Barbiturates Screen Ur Phencyclidine Scrn Ur Amphetamines Screen U Benzodiazepines Scrn U Oth Cocaine Metabols U Cannabinoids Screen Alcohol, Quantitative 04/11/18 04/11/18 04/11/18 19:12 19:12 20:51 WBC RBC Hgb Hct MCV MCH MCHC RDW Plt Count MPV Gran % Lymph % (Auto) [place] % (Auto) Eos % (Auto) Baso % (Auto) Gran # Lymph # (Auto) [place] # (Auto) Eos # (Auto) Baso # (Auto) PT INR APTT pO2 VBG pH VBG pCO2 VBG HCO3 VBG Total CO2 VBG O2 Sat (Calc) VBG Base Excess VBG Potassium Sodium 138 Chloride 97 L Glucose Lactate FiO2 Potassium 2.8 L* D Carbon Dioxide 26 Anion Gap 18 BUN 6 L Creatinine 0.4 L Est GFR ( Amer) > 60 Est GFR (Non-Af Amer) > 60 Random Glucose 120 H Calcium 8.6 Phosphorus Magnesium 1.5 L Total Bilirubin 9.8 H AST 313 H D ALT 90 H Alkaline Phosphatase 749 H D Total Creatine Kinase Total Protein 7.9 Albumin 3.5 Globulin 4.3 Albumin/Globulin Ratio 0.8 L Amylase 141 H Lipase 649 H Carcinoembryonic Ag Venous Blood Potassium Urine Color Dark yellow Urine Appearance Clear Urine pH 7.0 Ur Specific [place] 1.010 Urine Protein Negative Urine Glucose (UA) Negative Urine Ketones Negative Urine Blood Trace-intact H Urine Nitrate Negative Urine Bilirubin Large H Urine Urobilinogen 4.0 H Ur Leukocyte Esterase Negative Urine RBC 0 - 2 Urine WBC Negative Ur Epithelial Cells None Urine Bacteria Neg Urine Opiates Screen Urine Methadone Screen Ur Barbiturates Screen Ur Phencyclidine Scrn Ur Amphetamines Screen U Benzodiazepines Scrn U Oth Cocaine Metabols U Cannabinoids Screen Alcohol, Quantitative 256 H 04/12/18 04/12/18 04/12/18 02:30 07:00 07:00 WBC 6.3 RBC 3.57 Hgb 12.2 L Hct 35.3 L MCV 98.9 MCH 34.2 MCHC 34.6 RDW 13.9 Plt Count 98 L MPV 11.3 H Gran % 70.9 H Lymph % (Auto) 20.1 L [place] % (Auto) 8.5 H Eos % (Auto) 0.3 L Baso % (Auto) 0.2 Gran # 4.48 Lymph # (Auto) 1.3 [place] # (Auto) 0.5 Eos # (Auto) 0.0 Baso # (Auto) 0.01 PT INR APTT pO2 VBG pH VBG pCO2 VBG HCO3 VBG Total CO2 VBG O2 Sat (Calc) VBG Base Excess VBG Potassium Sodium 139 Chloride 103 Glucose Lactate FiO2 Potassium 3.6 Carbon Dioxide 25 Anion Gap 15 BUN 5 L Creatinine 0.4 L Est GFR ( Amer) > 60 Est GFR (Non-Af Amer) > 60 Random Glucose 102 Calcium 7.9 L Phosphorus 2.6 Magnesium 1.6 L Total Bilirubin 10.9 H AST 272 H ALT 87 H Alkaline Phosphatase 683 H Total Creatine Kinase 48 Total Protein 7.5 Albumin 3.3 Globulin 4.2 Albumin/Globulin Ratio 0.8 L Amylase Lipase Carcinoembryonic Ag Venous Blood Potassium Urine Color Urine Appearance Urine pH Ur Specific [place] Urine Protein Urine Glucose (UA) Urine Ketones Urine Blood Urine Nitrate Urine Bilirubin Urine Urobilinogen Ur Leukocyte Esterase Urine RBC Urine WBC Ur Epithelial Cells Urine Bacteria Urine Opiates Screen Negative Urine Methadone Screen Negative Ur Barbiturates Screen Negative Ur Phencyclidine Scrn Negative Ur Amphetamines Screen Negative U Benzodiazepines Scrn Negative U Oth Cocaine Metabols Negative U Cannabinoids Screen Negative Alcohol, Quantitative 04/12/18 04/12/18 07:00 07:00 WBC RBC Hgb Hct MCV MCH MCHC RDW Plt Count MPV Gran % Lymph % (Auto) [place] % (Auto) Eos % (Auto) Baso % (Auto) Gran # Lymph # (Auto) [place] # (Auto) Eos # (Auto) Baso # (Auto) PT 17.3 H INR 1.49 APTT pO2 VBG pH VBG pCO2 VBG HCO3 VBG Total CO2 VBG O2 Sat (Calc) VBG Base Excess VBG Potassium Sodium Chloride Glucose Lactate FiO2 Potassium Carbon Dioxide Anion Gap BUN Creatinine Est GFR ( Amer) Est GFR (Non-Af Amer) Random Glucose Calcium Phosphorus Magnesium Total Bilirubin AST ALT Alkaline Phosphatase Total Creatine Kinase Total Protein Albumin Globulin Albumin/Globulin Ratio Amylase Lipase Carcinoembryonic Ag 5.9 H Venous Blood Potassium Urine Color Urine Appearance Urine pH Ur Specific [place] Urine Protein Urine Glucose (UA) Urine Ketones Urine Blood Urine Nitrate Urine Bilirubin Urine Urobilinogen Ur Leukocyte Esterase Urine RBC Urine WBC Ur Epithelial Cells Urine Bacteria Urine Opiates Screen Urine Methadone Screen Ur Barbiturates Screen Ur Phencyclidine Scrn Ur Amphetamines Screen U Benzodiazepines Scrn U Oth Cocaine Metabols U Cannabinoids Screen Alcohol, Quantitative Assessment & Plan - Assessment and Plan (Free Text) Assessment: 37 yo WM with EtOH Abuse presenting with abd pain. # Abd Pain: Likely multifactorial in nature related to EtOH gastritis, EtOH Pancreatitis (though lipase not 3xULN, symptoms have been going on for days and patient may be progressing to chronic pancreatitis) as well as abdominal ascites due to newly diagnosed EtOH cirrhosis. # EtOH Cirrhosis + Hepatitis: MELD-Na 20, Maddrey 30. Therefore steroids not indicated at this time. - Ascites: Appreciated on exam and CT. If possible, IR to do paracentesis with cell count, cytology, protein and albumin analysis. - HCC: Possible as liver mass seen on CT. AFP pending. Needs triple phase CT or MRI at some point. - HE: None apparent at this time. - EV: Needs screening EGD at some point # EtOH Abuse: 1/3 gallon vodka daily. Last drink just prior to admission. # Tobacco abuse: 1 ppd x years. Plan: - Plan as above with para if able --- May need diuretic pending course - Monitor CMP, INR, CBC daily --- May benefit from steroids if labs worsen - F/u AFP, viral hep; vaccinate if not immune - Nutrition consult - Social work consult - Counseled on EtOH and Tobacco cessation Pt discussed with Dr. Zepeda. See attestation for further recs/changes. <Inocencio Zepeda - Last Filed: 04/12/18 12:35> Meds - Medications Medications: Current Medications Folic Acid (Folic Acid) [address] [facility] Last Admin: 04/12/18 09:02 Dose: 1 mg Heparin Sodium (Porcine) (Heparin) 5,000 units SC Q12 [facility]; Protocol Last Admin: 04/12/18 09:01 Dose: 5,000 units Sodium Chloride (Sodium Chloride 0.9%) 1,000 mls @ 200 mls/hr IV .Q5H [facility] Last Admin: 04/12/18 11:44 Dose: 200 mls/hr Lorazepam (Ativan) 1 mg IVP Q6H PRN; Protocol PRN Reason: Anxiety Last Admin: 04/12/18 08:52 Dose: 1 mg Morphine Sulfate (Morphine) 1 mg IVP Q4H PRN PRN Reason: Pain, severe (8-10) Multivitamins/Minerals (Therapeutic-M Tab) [address] [facility] Last Admin: 04/12/18 08:53 Dose: 1 tab Pantoprazole Sodium (Protonix Inj) [address] [facility] Last Admin: 04/12/18 09:01 Dose: 40 mg Thiamine HCl (Vitamin B1 Tab) [address] [facility] Last Admin: 04/12/18 09:02 Dose: 50 mg Results - Vital Signs Recent Vital Signs: Last Vital Signs Temp 99.7 F H 04/12/18 12:00 Pulse 94 H 04/12/18 12:00 Resp 19 04/12/18 12:00 BP 132/91 H 04/12/18 12:00 Pulse Ox 98 04/12/18 02:17 - Labs Result Diagrams: 04/12/18 07:00 04/12/18 07:00 Labs: Laboratory Results - last 24 hr 04/11/18 04/11/18 04/11/18 19:12 19:12 19:12 WBC 7.5 D RBC 3.71 Hgb 12.8 L Hct 36.3 L MCV 97.8 MCH 34.5 MCHC 35.3 RDW 13.6 Plt Count 124 MPV 11.8 H Gran % 69.9 H Lymph % (Auto) 16.5 L [place] % (Auto) 13.2 H Eos % (Auto) 0.1 L Baso % (Auto) 0.3 Gran # 5.26 Lymph # (Auto) 1.2 [place] # (Auto) 1.0 H Eos # (Auto) 0.0 Baso # (Auto) 0.02 PT 16.9 H INR 1.47 APTT 36.8 H pO2 162 H VBG pH 7.47 H VBG pCO2 39.0 L VBG HCO3 28.4 H VBG Total CO2 29.6 H VBG O2 Sat (Calc) 100.3 H VBG Base Excess 4.5 H VBG Potassium 2.7 L Sodium 134.0 Chloride 97.0 L Glucose 120 H Lactate 1.9 FiO2 21.0 Potassium Carbon Dioxide Anion Gap BUN Creatinine Est GFR ( Amer) Est GFR (Non-Af Amer) Random Glucose Calcium Phosphorus Magnesium Total Bilirubin AST ALT Alkaline Phosphatase Total Creatine Kinase Total Protein Albumin Globulin Albumin/Globulin Ratio Amylase Lipase Carcinoembryonic Ag Venous Blood Potassium 2.7 L Urine Color Urine Appearance Urine pH Ur Specific [place] Urine Protein Urine Glucose (UA) Urine Ketones Urine Blood Urine Nitrate Urine Bilirubin Urine Urobilinogen Ur Leukocyte Esterase Urine RBC Urine WBC Ur Epithelial Cells Urine Bacteria Urine Opiates Screen Urine Methadone Screen Ur Barbiturates Screen Ur Phencyclidine Scrn Ur Amphetamines Screen U Benzodiazepines Scrn U Oth Cocaine Metabols U Cannabinoids Screen Alcohol, Quantitative 04/11/18 04/11/18 04/11/18 19:12 19:12 20:51 WBC RBC Hgb Hct MCV MCH MCHC RDW Plt Count MPV Gran % Lymph % (Auto) [place] % (Auto) Eos % (Auto) Baso % (Auto) Gran # Lymph # (Auto) [place] # (Auto) Eos # (Auto) Baso # (Auto) PT INR APTT pO2 VBG pH VBG pCO2 VBG HCO3 VBG Total CO2 VBG O2 Sat (Calc) VBG Base Excess VBG Potassium Sodium 138 Chloride 97 L Glucose Lactate FiO2 Potassium 2.8 L* D Carbon Dioxide 26 Anion Gap 18 BUN 6 L Creatinine 0.4 L Est GFR ( Amer) > 60 Est GFR (Non-Af Amer) > 60 Random Glucose 120 H Calcium 8.6 Phosphorus Magnesium 1.5 L Total Bilirubin 9.8 H AST 313 H D ALT 90 H Alkaline Phosphatase 749 H D Total Creatine Kinase Total Protein 7.9 Albumin 3.5 Globulin 4.3 Albumin/Globulin Ratio 0.8 L Amylase 141 H Lipase 649 H Carcinoembryonic Ag Venous Blood Potassium Urine Color Dark yellow Urine Appearance Clear Urine pH 7.0 Ur Specific [place] 1.010 Urine Protein Negative Urine Glucose (UA) Negative Urine Ketones Negative Urine Blood Trace-intact H Urine Nitrate Negative Urine Bilirubin Large H Urine Urobilinogen 4.0 H Ur Leukocyte Esterase Negative Urine RBC 0 - 2 Urine WBC Negative Ur Epithelial Cells None Urine Bacteria Neg Urine Opiates Screen Urine Methadone Screen Ur Barbiturates Screen Ur Phencyclidine Scrn Ur Amphetamines Screen U Benzodiazepines Scrn U Oth Cocaine Metabols U Cannabinoids Screen Alcohol, Quantitative 256 H 04/12/18 04/12/18 04/12/18 02:30 07:00 07:00 WBC 6.3 RBC 3.57 Hgb 12.2 L Hct 35.3 L MCV 98.9 MCH 34.2 MCHC 34.6 RDW 13.9 Plt Count 98 L MPV 11.3 H Gran % 70.9 H Lymph % (Auto) 20.1 L [place] % (Auto) 8.5 H Eos % (Auto) 0.3 L Baso % (Auto) 0.2 Gran # 4.48 Lymph # (Auto) 1.3 [place] # (Auto) 0.5 Eos # (Auto) 0.0 Baso # (Auto) 0.01 PT INR APTT pO2 VBG pH VBG pCO2 VBG HCO3 VBG Total CO2 VBG O2 Sat (Calc) VBG Base Excess VBG Potassium Sodium 139 Chloride 103 Glucose Lactate FiO2 Potassium 3.6 Carbon Dioxide 25 Anion Gap 15 BUN 5 L Creatinine 0.4 L Est GFR ( Amer) > 60 Est GFR (Non-Af Amer) > 60 Random Glucose 102 Calcium 7.9 L Phosphorus 2.6 Magnesium 1.6 L Total Bilirubin 10.9 H AST 272 H ALT 87 H Alkaline Phosphatase 683 H Total Creatine Kinase 48 Total Protein 7.5 Albumin 3.3 Globulin 4.2 Albumin/Globulin Ratio 0.8 L Amylase Lipase Carcinoembryonic Ag Venous Blood Potassium Urine Color Urine Appearance Urine pH Ur Specific [place] Urine Protein Urine Glucose (UA) Urine Ketones Urine Blood Urine Nitrate Urine Bilirubin Urine Urobilinogen Ur Leukocyte Esterase Urine RBC Urine WBC Ur Epithelial Cells Urine Bacteria Urine Opiates Screen Negative Urine Methadone Screen Negative Ur Barbiturates Screen Negative Ur Phencyclidine Scrn Negative Ur Amphetamines Screen Negative U Benzodiazepines Scrn Negative U Oth Cocaine Metabols Negative U Cannabinoids Screen Negative Alcohol, Quantitative 04/12/18 04/12/18 07:00 07:00 WBC RBC Hgb Hct MCV MCH MCHC RDW Plt Count MPV Gran % Lymph % (Auto) [place] % (Auto) Eos % (Auto) Baso % (Auto) Gran # Lymph # (Auto) [place] # (Auto) Eos # (Auto) Baso # (Auto) PT 17.3 H INR 1.49 APTT pO2 VBG pH VBG pCO2 VBG HCO3 VBG Total CO2 VBG O2 Sat (Calc) VBG Base Excess VBG Potassium Sodium Chloride Glucose Lactate FiO2 Potassium Carbon Dioxide Anion Gap BUN Creatinine Est GFR ( Amer) Est GFR (Non-Af Amer) Random Glucose Calcium Phosphorus Magnesium Total Bilirubin AST ALT Alkaline Phosphatase Total Creatine Kinase Total Protein Albumin Globulin Albumin/Globulin Ratio Amylase Lipase Carcinoembryonic Ag 5.9 H Venous Blood Potassium Urine Color Urine Appearance Urine pH Ur Specific [place] Urine Protein Urine Glucose (UA) Urine Ketones Urine Blood Urine Nitrate Urine Bilirubin Urine Urobilinogen Ur Leukocyte Esterase Urine RBC Urine WBC Ur Epithelial Cells Urine Bacteria Urine Opiates Screen Urine Methadone Screen Ur Barbiturates Screen Ur Phencyclidine Scrn Ur Amphetamines Screen U Benzodiazepines Scrn U Oth Cocaine Metabols U Cannabinoids Screen Alcohol, Quantitative Attending/Attestation - Attestation I have fully participated in the care of the patient.: Yes I have reviewed all pertinent clinical information: Yes Notes (Text): 04/12/18 12:31 37 year old male with decompensated ETOH cirrhosis, ETOH pancreatitis who presents to hospital with complaint of abdominal pain in setting of active ETOH abuse/intoxication. - Liquid diet as tolerated, continue with supportive care and IVF hydration - Obtain AFP - Patient with hypodense liver lesion, requires additional follow up in setting of cirrhosis with concern for HCC. Suggest dedicated liver CT triple phase when feasible. - Monitor for signs of ETOH withdrawal - Consider diagnostic paracentesis, though no significant ascitic fluid appreciated on imaging - Continue to monitor LFTs, obtain viral hepatitis panel - Patient would benefit from elective EGD for variceal screening following resolution of acute symptoms - Currently patient does not meet criteria for steroid induction in acute ETOH hepatitis, will follow patient clinical course
[2018-04-12] MEDS: Sodium Chloride 0.9% 1,000 ML IV SCH ×3 (11:44→20:20)
--- NOTE | 2018-04-12 13:17 | CT ---
Date of service: 04/11/2018 PROCEDURE: CT Abdomen and Pelvis with contrast HISTORY: rule out obstruction COMPARISON: CT 08/06/2017 TECHNIQUE: Contrast dose: 100 cc of Omni 300 Radiation dose: Total exam DLP = 419.29 mGy-cm. This CT exam was performed using one or more of the following dose reduction techniques: Automated exposure control, adjustment of the mA and/or kV according to patient size, and/or use of iterative reconstruction technique. FINDINGS: LOWER THORAX: Unremarkable. LIVER: There is a heterogeneous pattern of the liver parenchyma. On the previous study there was diffuse fatty replacement. Pattern is now more heterogeneous. There is hepatomegaly with the liver measuring 27 cm in width and 19 cm AP. There is a small amount of ascites. There is also splenomegaly. Findings are consistent with cirrhosis. There is a 2 cm hyperdense lesion in the inferior posterior right lobe of the liver. This should be further evaluated to rule out hepatocellular carcinoma. GALLBLADDER AND BILE DUCTS: There is some fluid surrounding the gallbladder as well as ascites surrounding the liver. There are no gallstones seen PANCREAS: Unremarkable. No gross lesion or ductal dilatation. SPLEEN: There is mild to moderate splenomegaly with spleen measuring 16 cm in length. ADRENALS: Unremarkable. No mass. KIDNEYS AND URETERS: Unremarkable. No hydronephrosis. No solid mass. VASCULATURE: Unremarkable. No aortic aneurysm. No aortic atherosclerotic calcification or mural plaque present. BOWEL: Unremarkable. No obstruction. No gross mural thickening. APPENDIX: Normal appendix. PERITONEUM: Moderate free fluid LYMPH NODES: Unremarkable. No enlarged lymph nodes. BLADDER: Unremarkable. REPRODUCTIVE: Unremarkable. BONES: No acute fracture. OTHER FINDINGS: The report concurs with the preliminary [facility] report IMPRESSION: Hepatomegaly with heterogeneous parenchymal pattern consistent with cirrhosis. There is also mild to moderate ascites and splenomegaly. 2 cm hyperdense lesion in the posterior right lobe. Further evaluation is recommended to rule out HCC
[2018-04-12 13:24] LABS: HEPATITIS B SURFACE AG Negative (NEGATIVE)
[2018-04-12 13:29] LABS: HEPATITIS A IGM NEGATIVE (NEGATIVE); HEPATITIS B CORE AB NEGATIVE (NEGATIVE)
[2018-04-12 13:41] LABS: HEPATITIS C ANTIBODY NEGATIVE (NEGATIVE)
--- NOTE | 2018-04-12 14:27 | US ---
Date of service: 04/11/2018 HISTORY: Elevated LFT COMPARISON: None. TECHNIQUE: Sonographic evaluation of the right upper quadrant of the abdomen. FINDINGS: LIVER: Measures 18.0 cm in length. Heterogeneously increased echogenicity of the liver parenchyma is noted diffusely. No definitive mass. No intrahepatic bile duct dilatation. GALLBLADDER: Mural thickening gallbladder seen to 6.4 mm without cholelithiasis or sonographic Mayorga sign. Trace perihepatic ascites appreciated which may be causing gallbladder hydrops. Clinically correlate for potential cholecystitis nevertheless. COMMON BILE DUCT: Measures 6.1 mm. No stones. No dilatation. PANCREAS: Pancreas completely obscured by interposed bowel gas. RIGHT KIDNEY: Measures 10.7 cm in length. Normal echogenicity. No calculus, mass, or hydronephrosis. AORTA: Obscured by interposed bowel gas. IVC: Obscured by interposed bowel gas. OTHER FINDINGS: None . IMPRESSION: Mural thickening of the gallbladder is likely a function of hydrops. Clinically correlate nevertheless. No cholelithiasis. Common bile duct is upper limits normal caliber. No choledocholithiasis or cholelithiasis appreciable. Enlarged liver potentially with diffuse hepatic steatosis noted. No definitive mass identified. Overlying bowel obscures abdominal aorta, inferior vena cava and the pancreas.
--- NOTE | 2018-04-12 16:13 | CARD ---
APPROVED REPORT Date of service: 04/11/2018 EKG Measurement Heart [id number] <Conclusion> Normal sinus rhythm Normal ECG
[2018-04-13 06:28] LABS: INR 1.51; PROTHROMBIN TIME 17.5 SECONDS (9.4-12.5)
[2018-04-13 06:29] LABS: EOS % 0.5 % (1.5-5.0); GRAN # 3.85 (1.4-6.5); GRAN % 69.8 % (50.0-68.0); HEMOGLOBIN 11.1 g/dL (14.0-18.0); LYMPH # 1.1 (1.2-3.4); LYMPH % 20.1 % (22.0-35.0); MEAN CELL VOLUME 100.9 fl (80.0-105.0); MEAN CORPUSCULAR HEMOGLOBIN 33.9 pg (25.0-35.0); MEAN CORPUSCULAR HGB CONC 33.6 g/dl (31.0-37.0); MEAN PLATELET VOLUME 12.6 fl (7.0-11.0); MONO # 0.5 (0.1-0.6); MONO % 9.6 % (1.0-6.0); RBC 3.27 10^6/uL (3.5-6.1); RED CELL DISTRIBUTION WIDTH 14.3 % (11.5-14.5); WHITE BLOOD COUNT 5.5 10^3/uL (4.5-11.0)
[2018-04-13 06:30] LABS: ALB/GLOB RATIO 0.8 (1.1-1.8); ALBUMIN 2.9 g/dL (3.0-4.8); ALT/SGPT 72 U/L (7-56); AST/SGOT 196 U/L (17-59); BLOOD UREA NITROGEN 8 mg/dL (7-21); CALCIUM 7.9 mg/dL (8.4-10.5); GFR NON-AFRICAN AMERICAN > 60
[2018-04-13] MEDS: Multivitamin With Minerals Tab PO SCH (08:20)
[2018-04-13] MEDS ORDERED: Potassium & Sodium Phosphate PO STA (09:25)
[2018-04-13] MEDS: Sodium Chloride 0.9% 1,000 ML IV SCH ×2 (11:02→16:13)
--- NOTE | 2018-04-13 11:29 | CP.PCM.PN ---
<Jairon Dobbs - Last Filed: 04/13/18 16:29> Subjective - Date & Time of Evaluation Date of Evaluation: 04/13/18 Time of Evaluation: 08:00 - Subjective Subjective: PGY-4 GI Fellow Prog Note Pt lying in bed when seen this AM. States abd pain a little better. Explained to him worsening of labs and necessity to stop drinking. 5 point ROS negative other than stated above Objective - Vital Signs/Intake and Output Vital Signs (last 24 hours): Temp Pulse Resp BP Pulse Ox 98.2 F 82 20 127/80 97 04/13/18 06:00 04/13/18 06:00 04/13/18 06:00 04/13/18 06:00 04/13/18 06:00 Intake and Output: 04/13/18 04/13/18 06:59 18:59 Intake Total 2400 Output Total 6 Balance 2394 - Medications Medications: Current Medications Folic Acid (Folic Acid) 1 mg PO DAILY [facility] Last Admin: 04/13/18 11:01 Dose: 1 mg Heparin Sodium (Porcine) (Heparin) 5,000 units SC Q12 [facility]; Protocol Last Admin: 04/13/18 11:11 Dose: 5,000 units Sodium Chloride (Sodium Chloride 0.9%) 1,000 mls @ 200 mls/hr IV .Q5H [facility] Last Admin: 04/13/18 11:02 Dose: 200 mls/hr Lorazepam (Ativan) 1 mg IVP Q6H PRN; Protocol PRN Reason: Anxiety Last Admin: 04/12/18 08:52 Dose: 1 mg Morphine Sulfate (Morphine) 1 mg IVP Q4H PRN PRN Reason: Pain, severe (8-10) Multivitamins/Minerals (Therapeutic-M Tab) 1 tab PO 0800 [facility] Last Admin: 04/13/18 08:20 Dose: 1 tab Pantoprazole Sodium (Protonix Inj) 40 mg IVP DAILY [facility] Last Admin: 04/13/18 11:01 Dose: 40 mg Thiamine HCl (Vitamin B1 Tab) 50 mg PO DAILY [facility] Last Admin: 04/13/18 11:14 Dose: 50 mg - Labs Labs: 04/13/18 05:40 04/13/18 05:35 PT 17.5 SECONDS (9.4-12.5) H 04/13/18 05:40 INR 1.51 04/13/18 05:40 APTT 36.8 Seconds (25.1-36.5) H 04/11/18 19:12 - Constitutional Appears: No Acute Distress, Chronically Ill - Head Exam Head Exam: ATRAUMATIC, NORMAL INSPECTION - Eye Exam Eye Exam: EOMI, Scleral icterus - Respiratory Exam Respiratory Exam: NORMAL BREATHING PATTERN. absent: Accessory Muscle Use, Respiratory Distress - GI/Abdominal Exam GI & Abdominal Exam: Distended, Soft, Tenderness (ttp in b/l lower quads), Normal Bowel Sounds. absent: Bruit, Firm, Guarding, Rigid, Mass, Organomegaly, Pulsatile Mass Assessment and Plan - Assessment and Plan (Free Text) Assessment: 37 yo WM with EtOH Abuse presenting with abd pain. # Abd Pain: Likely multifactorial in nature related to EtOH gastritis, EtOH Pancreatitis (though lipase not 3xULN, symptoms have been going on for days and patient may be progressing to chronic pancreatitis) as well as abdominal ascites due to newly diagnosed EtOH cirrhosis. # EtOH Cirrhosis + Hepatitis: MELD-Na 20 on admission, Maddrey 30 but nayla to 36.2 on 04/13. Therefore would benefit from steroids, but await paracentesis to r/o SBP prior to starting steroids. - Ascites: Appreciated on exam and CT. If possible, IR to do paracentesis with cell count, cytology, protein and albumin analysis. - HCC: Possible as liver mass seen on CT. AFP not elevated. Needs triple phase CT or MRI at some point. - HE: None apparent at this time. - EV: Needs screening EGD at some point # EtOH Abuse: 1/3 gallon vodka daily. Last drink just prior to admission. # Tobacco abuse: 1 ppd x years. Plan: - Paracentesis planned for today --- If SBP negative or no tap, then plan to start steroids (prednisolone 40 mg daily x 4 weeks) --- May need diuretics pending course - Monitor CMP, INR, CBC daily - Viral hep negative; therefore, vaccinate for Hep A and B - Nutrition consult - Social work consult - Counseled on EtOH and Tobacco cessation - CIWA protocol, supp vitamins, monitor for EtOH withdrawal - IVF per primary Pt discussed with Dr. Zepeda. See attestation for further recs/changes. <Inocencio Zepeda - Last Filed: 04/13/18 16:34> Objective - Vital Signs/Intake and Output Vital Signs (last 24 hours): Temp Pulse Resp BP Pulse Ox 97.9 F 93 H 19 130/94 H 97 04/13/18 12:00 04/13/18 12:00 04/13/18 12:00 04/13/18 12:00 04/13/18 06:00 Intake and Output: 04/13/18 04/13/18 06:59 18:59 Intake Total 2400 Output Total 6 Balance 2394 - Medications Medications: Current Medications Folic Acid (Folic Acid) 1 mg PO DAILY [facility] Last Admin: 04/13/18 11:01 Dose: 1 mg Heparin Sodium (Porcine) (Heparin) 5,000 units SC Q12 [facility]; Protocol Last Admin: 04/13/18 11:11 Dose: 5,000 units Sodium Chloride (Sodium Chloride 0.9%) 1,000 mls @ 100 mls/hr IV .Q10H [facility] Last Admin: 04/13/18 16:13 Dose: 100 mls/hr Lorazepam (Ativan) 1 mg IVP Q6H PRN; Protocol PRN Reason: Anxiety Last Admin: 04/12/18 08:52 Dose: 1 mg Morphine Sulfate (Morphine) 1 mg IVP Q4H PRN PRN Reason: Pain, severe (8-10) Multivitamins/Minerals (Therapeutic-M Tab) 1 tab PO 0800 [facility] Last Admin: 04/13/18 08:20 Dose: 1 tab Pantoprazole Sodium (Protonix Inj) 40 mg IVP DAILY [facility] Last Admin: 04/13/18 11:01 Dose: 40 mg Thiamine HCl (Vitamin B1 Tab) 50 mg PO DAILY [facility] Last Admin: 04/13/18 11:14 Dose: 50 mg - Labs Labs: 04/13/18 05:40 04/13/18 05:35 PT 17.5 SECONDS (9.4-12.5) H 04/13/18 05:40 INR 1.51 04/13/18 05:40 APTT 36.8 Seconds (25.1-36.5) H 04/11/18 19:12 Attending/Attestation - Attestation I have fully participated in the care of the patient.: Yes I have reviewed all pertinent clinical information, including history, physical exam and plan: Yes Notes (Text): 04/13/18 16:33 ETOH decompensated cirrhosis - Follow up ascitic fluid results - Continue to monitor LFTs - Consider starting prednisolone therapy for severe ETOH hepatitis - Follow up liver CT triple phase to r/o HCC - ETOH cessation counseling
--- NOTE | 2018-04-13 16:12 | CP.PCM.PN ---
<Livan Noel - Last Filed: 04/13/18 16:18> Subjective - Date & Time of Evaluation Date of Evaluation: 04/13/18 Time of Evaluation: 09:45 - Subjective Subjective: Livan Noel DO, PGY-1 Hospitalist Progress Note for Dr. Kelly Patient was seen and examined at bedside this AM. His states his abdominal pain is improved this AM but he has been going to the bathroom a lot. Objective - Vital Signs/Intake and Output Vital Signs (last 24 hours): Temp Pulse Resp BP Pulse Ox 97.9 F 93 H 19 130/94 H 97 04/13/18 12:00 04/13/18 12:00 04/13/18 12:00 04/13/18 12:00 04/13/18 06:00 Intake and Output: 04/13/18 04/13/18 06:59 18:59 Intake Total 2400 Output Total 6 Balance 2394 - Medications Medications: Current Medications Folic Acid (Folic Acid) 1 mg PO DAILY [facility] Last Admin: 04/13/18 11:01 Dose: 1 mg Heparin Sodium (Porcine) (Heparin) 5,000 units SC Q12 [facility]; Protocol Last Admin: 04/13/18 11:11 Dose: 5,000 units Sodium Chloride (Sodium Chloride 0.9%) 1,000 mls @ 200 mls/hr IV .Q5H [facility] Last Admin: 04/13/18 11:02 Dose: 200 mls/hr Lorazepam (Ativan) 1 mg IVP Q6H PRN; Protocol PRN Reason: Anxiety Last Admin: 04/12/18 08:52 Dose: 1 mg Morphine Sulfate (Morphine) 1 mg IVP Q4H PRN PRN Reason: Pain, severe (8-10) Multivitamins/Minerals (Therapeutic-M Tab) 1 tab PO 0800 [facility] Last Admin: 04/13/18 08:20 Dose: 1 tab Pantoprazole Sodium (Protonix Inj) 40 mg IVP DAILY [facility] Last Admin: 04/13/18 11:01 Dose: 40 mg Thiamine HCl (Vitamin B1 Tab) 50 mg PO DAILY [facility] Last Admin: 04/13/18 11:14 Dose: 50 mg - Labs Labs: 04/13/18 05:40 04/13/18 05:35 PT 17.5 SECONDS (9.4-12.5) H 04/13/18 05:40 INR 1.51 04/13/18 05:40 APTT 36.8 Seconds (25.1-36.5) H 04/11/18 19:12 - Constitutional Appears: Non-toxic, No Acute Distress - Head Exam Head Exam: ATRAUMATIC, NORMOCEPHALIC - Eye Exam Eye Exam: EOMI, PERRL, Scleral icterus - ENT Exam ENT Exam: Mucous Membranes Moist - Neck Exam Neck Exam: Full ROM, Normal Inspection - Respiratory Exam Respiratory Exam: Clear to Ausculation Bilateral, NORMAL BREATHING PATTERN. absent: Accessory Muscle Use, Rales, Rhonchi, Wheezes, Respiratory Distress - Cardiovascular Exam Cardiovascular Exam: REGULAR RHYTHM, RRR, +S1, +S2. absent: Gallop, Rubs, Mur mur - GI/Abdominal Exam GI & Abdominal Exam: Soft, Normal Bowel Sounds. absent: Guarding, Tenderness Additional comments: minimal ascites, no apparent caput medusae - Extremities Exam Extremities Exam: Full ROM, Normal Inspection - Back Exam Back Exam: NORMAL INSPECTION - Neurological Exam Neurological Exam: Alert, Awake, Oriented x3 - Psychiatric Exam Psychiatric exam: Normal Affect, Normal Mood - Skin Skin Exam: Dry, Intact, Warm Additional comments: skin appears diffusely jaundiced Assessment and Plan - Assessment and Plan (Free Text) Assessment: 37 yo M with PMH of acute pancreatitis x 2 and alcohol abuse presented to ED with worsening lower abdominal pain, nausea, and vomiting. He was found to have lipase of 649 in ED. Plan: 1. Acute alcoholic pancreatitis Patient has adequate UOP Will decrease IVF to 100 cc/hr Monitor for worsening s/sx of alcohol withdrawal CIWA this AM was 0 but received ativan overnight Continue seizure, aspiratio pxns GI consulted, recs appreciated 2. Cirrhosis CT abdomen/pelvis completed showed changes c/w cirrhosis, portal HTN, diffuse ascites worse over the liver, hepatosplenomegaly, a vague vascular lesion in the right lobe approx 2 cm Also showed emphysematous blebs in lower lobes b/l Patient also appears jaundiced and icteric on exam, further suggesting worsening cirrhosis Paracentesis was completed today per IR Maddrey score increased to 36.2 today and would benefit from steroids Per GI recs, wait until paracentesis results to r/o SBP prior to starting samson roids F/u AFP, Hep panel GI following, recs appreciated 3. Liver mass Seen on CTAP Will also need triple phase CT to further characterize this lesion F/u GI plan regarding biopsy of the mass F/u additional GI recs 4. Hypokalemia 2.8 on admission, this AM is 3.9 Continue to monitor 5. Hypomagnesemia Repleted, continue to monitor 6. EtOH abuse Counseled patient on importance of cessation, especially given dx of cirrhosis with likely need for transplant in future Continue CiWA protocol 7. Tobacco abuse Patient with emphysematous changes in lower lobes b/l May have underlying lung disease Currently no symptoms of cough or dyspnea But consider chest CT if these symptoms develop or as an outpatient DVT/GI PPX: sc heparin, protonix Full Code Advance to clear liquid diet Monitor on telemetry Case and plan reviewed and discussed with my attending Dr. Leticia Noel, IM Resident PGY-1 Pager: [phone] <Shaka Kelly - Last Filed: 04/14/18 16:06> Objective - Vital Signs/Intake and Output Vital Signs (last 24 hours): Temp Pulse Resp BP Pulse Ox 98 F 86 20 113/83 98 04/14/18 12:00 04/14/18 12:00 04/14/18 12:00 04/14/18 12:00 04/14/18 06:00 Intake and Output: 04/14/18 04/14/18 06:59 18:59 Intake Total 480 Balance 480 - Medications Medications: Current Medications Folic Acid (Folic Acid) 1 mg PO DAILY [facility] Last Admin: 04/14/18 09:54 Dose: 1 mg Heparin Sodium (Porcine) (Heparin) 5,000 units SC Q12 [facility]; Protocol Last Admin: 04/14/18 09:54 Dose: 5,000 units Sodium Chloride (Sodium Chloride 0.9%) 1,000 mls @ 100 mls/hr IV .Q10H [facility] Last Admin: 04/14/18 14:21 Dose: 100 mls/hr Lorazepam (Ativan) 1 mg IVP Q6H PRN; Protocol PRN Reason: Anxiety Last Admin: 04/14/18 00:33 Dose: 1 mg Morphine Sulfate (Morphine) 1 mg IVP Q4H PRN PRN Reason: Pain, severe (8-10) Multivitamins/Minerals (Therapeutic-M Tab) 1 tab PO 0800 [facility] Last Admin: 04/14/18 09:54 Dose: 1 tab Pantoprazole Sodium (Protonix Ec Tab) 40 mg PO 0600 [facility] Prednisone (Prednisone Tab) 40 mg PO DAILY [facility] Last Admin: 04/14/18 09:54 Dose: 40 mg Thiamine HCl (Vitamin B1 Tab) 50 mg PO DAILY [facility] Last Admin: 04/14/18 09:53 Dose: 50 mg - Labs Labs: 04/14/18 05:30 04/14/18 05:30 PT 18.7 SECONDS (9.4-12.5) H 04/14/18 05:30 INR 1.61 04/14/18 05:30 APTT 36.8 Seconds (25.1-36.5) H 04/11/18 19:12 Attending/Attestation - Attestation I have personally seen and examined this patient.: Yes I have fully participated in the care of the patient.: Yes I have reviewed all pertinent clinical information, including history, physical exam and plan: Yes Notes (Text): 04/14/18 16:06 Attending note; Patient seen and examined with resident. Patient is alert and awake. Complaining of mild abdominal pain. Denies any nausea, vomiting. Complaining of mild abdominal distention. Currently nothing by mouth. On IV fluids. Patient is a 37 -year-old male with PMH of acute pancreatitis x 2 and alcohol abuse presented to ED with worsening lower abdominal pain, nausea, and vomiting. He was found to have lipase of 649. 1.Acute pancreatitis; secondary to alcohol abuse. Continue IV fluids. Pain management. 2. Acute alcoholic hepatitis; follow-up Maddery score and MELD score. 3. Cirrhosis with ascites; CT scan showed hepatomegaly with cirrhosis, moderate ascites and splenomegaly. There is 2 cm hyperdense nodule in the right lobe of the liver. 4. Ascites; patient will get diagnostic paracentesis today. 5. Alcohol abuse; continue multivitamin, thiamine, folic acid. Monitor with CIWA protocol. IV Ativan when necessary. Complete alcohol cessation is strongly advised. Patient will be referred to [facility] hepatology clinic upon discharge. The diagnosis, follow-up plan discussed with patient in detail. Patient will be referred to [facility] clinic for further follow-up.
[2018-04-13 17:58] LABS: BODY FLUID TYPE PERITONEAL
--- NOTE | 2018-04-13 18:18 | US ---
PROCEDURE: Ultrasound guided paracentesis. HISTORY: ETOH abuse. New onset ascites. Needs diagnostic and therapeutic paracentesis PHYSICIAN(S): Roc Huitron MD. TECHNIQUE: The relative risks and indications for the procedure were explained to the patient and informed written consent obtained. Sonography of the abdomen was performed in a supine position. This revealed a small to moderate amount of non-loculated ascites, greatest in the right lower quadrant. A puncture site was selected and the area was prepped and draped in the usual sterile fashion. 1% Xylocaine was used to anesthetize the skin and soft tissues. A 7 [place] paracentesis catheter was trocared into the right lower quadrantand 2100 cc of clear bilious yellow fluid aspirated the appropriate labs were sent. IMPRESSION: Ultrasound-guided paracentesis in the right lower quadrant. 2100 cc of fluid were aspirated. Labs were sent
[2018-04-13 19:14] LABS: BF GROSS APPEARANCE SL CLOUDY (CLEAR)
[2018-04-13 19:15] LABS: BODY FLUID TOTAL COUNT 100 (0-0)
[2018-04-14] MEDS: Sodium Chloride 0.9% 1,000 ML IV SCH ×2 (05:43→14:21)
[2018-04-14 06:17] LABS: BASO # 0.01 K/mm3 (0.0-2.0); BASO % 0.2 % (0.0-3.0); EOS % 0.7 % (1.5-5.0); GRAN # 4.02 (1.4-6.5); GRAN % 66.6 % (50.0-68.0); HEMOGLOBIN 11.5 g/dL (14.0-18.0); LYMPH # 1.4 (1.2-3.4); LYMPH % 23.2 % (22.0-35.0); MEAN CELL VOLUME 100.3 fl (80.0-105.0); MEAN CORPUSCULAR HEMOGLOBIN 33.8 pg (25.0-35.0); MEAN CORPUSCULAR HGB CONC 33.7 g/dl (31.0-37.0); MEAN PLATELET VOLUME 12.2 fl (7.0-11.0); MONO # 0.6 (0.1-0.6); MONO % 9.3 % (1.0-6.0); RBC 3.4 10^6/uL (3.5-6.1); RED CELL DISTRIBUTION WIDTH 14.4 % (11.5-14.5)
[2018-04-14 06:23] LABS: INR 1.61; PROTHROMBIN TIME 18.7 SECONDS (9.4-12.5)
[2018-04-14 06:26] LABS: ALT/SGPT 75 U/L (7-56); AST/SGOT 221 U/L (17-59); BLOOD UREA NITROGEN 7 mg/dL (7-21); CALCIUM 8.1 mg/dL (8.4-10.5); GFR NON-AFRICAN AMERICAN > 60
[2018-04-14 06:27] LABS: ALB/GLOB RATIO 0.8 (1.1-1.8)
[2018-04-14 07:39] VITALS: O2SAT 98
[2018-04-14] MEDS: Potassium & Sodium Phosphate PO SCH ×2 (09:53→12:14)
[2018-04-14] MEDS: Multivitamin With Minerals Tab PO SCH (09:54)
--- NOTE | 2018-04-14 11:04 | CT ---
Date of service: 04/13/2018 PROCEDURE: CT Abdomen and Pelvis with and without intravenous contrast HISTORY: cirrhosis, hepatic lesion COMPARISON: None. TECHNIQUE: Axial images of the abdomen were obtained in the pre contrast, portal venous and delayed phases of enhancement. Coronal and sagittal reformats were generated. Contrast dose: 150 cc of Omni 350 Radiation dose: Total exam DLP = 1796.84 mGy-cm. This CT exam was performed using one or more of the following dose reduction techniques: Automated exposure control, adjustment of the mA and/or kV according to patient size, and/or use of iterative reconstruction technique. FINDINGS: LOWER THORAX: Unremarkable. LIVER: There is severe hepatomegaly. The liver has a heterogeneous appearance. The liver measures 22 cm in height and 27 cm transversely. There is a small amount of ascites surrounding the liver. The portal vein is patent. There is severe compression of the IVC as it traverses the liver. The hepatic veins are also compressed. There is a 17 mm lesion in the inferior aspect of the posterior right lobe. This shows a pattern of mild enhancement on the arterial phase and increased enhancement on the portal venous phase. This is not the typical enhancement pattern of HCC. This could represent a regenerative nodule. Continued follow-up is recommended GALLBLADDER AND BILE DUCTS: Unremarkable. PANCREAS: Unremarkable. No gross lesion or ductal dilatation. SPLEEN: Unremarkable. ADRENALS: Unremarkable. No mass. KIDNEYS AND URETERS: Unremarkable. No hydronephrosis. No solid mass. VASCULATURE: Unremarkable. No aortic aneurysm. No aortic atherosclerotic calcification or mural plaque present. BOWEL: Unremarkable. No obstruction. No gross mural thickening. APPENDIX: Normal appendix. PERITONEUM: Small volume of ascites LYMPH NODES: Unremarkable. No enlarged lymph nodes. BLADDER: Unremarkable. REPRODUCTIVE: Unremarkable. BONES: No acute fracture. OTHER FINDINGS: None. IMPRESSION: There is severe compression of the IVC as it traverses the liver. The hepatic veins are also compressed. Severe hepatomegaly There is a 17 mm lesion in the inferior aspect of the posterior right lobe. This shows a pattern of mild enhancement on the arterial phase and increased enhancement on the portal venous phase. This is not the typical enhancement pattern of HCC. This could represent a regenerative nodule. Continued follow-up is recommended
--- NOTE | 2018-04-14 12:30 | CP.PCM.PN ---
<JuanstewartHalimanegra - Last Filed: 04/14/18 12:26> Subjective - Date & Time of Evaluation Date of Evaluation: 04/14/18 Time of Evaluation: 08:30 - Subjective Subjective: PGY-4 GI Fellow Consult Note Pt lying in bed when seen this AM. States abd pain improved post-paracentesis. 2.1 L removed and SBP negative. Tolerating diet. 5 point ROS negative other than stated above Objective - Vital Signs/Intake and Output Vital Signs (last 24 hours): Temp Pulse Resp BP Pulse Ox 98 F 86 20 113/83 98 04/14/18 12:00 04/14/18 12:00 04/14/18 12:00 04/14/18 12:00 04/14/18 06:00 Intake and Output: 04/14/18 04/14/18 06:59 18:59 Intake Total 480 Balance 480 - Medications Medications: Current Medications Folic Acid (Folic Acid) 1 mg PO DAILY [facility] Last Admin: 04/14/18 09:54 Dose: 1 mg Heparin Sodium (Porcine) (Heparin) 5,000 units SC Q12 [facility]; Protocol Last Admin: 04/14/18 09:54 Dose: 5,000 units Sodium Chloride (Sodium Chloride 0.9%) 1,000 mls @ 100 mls/hr IV .Q10H [facility] Last Admin: 04/14/18 05:43 Dose: 100 mls/hr Lorazepam (Ativan) 1 mg IVP Q6H PRN; Protocol PRN Reason: Anxiety Last Admin: 04/14/18 00:33 Dose: 1 mg Morphine Sulfate (Morphine) 1 mg IVP Q4H PRN PRN Reason: Pain, severe (8-10) Multivitamins/Minerals (Therapeutic-M Tab) 1 tab PO 0800 [facility] Last Admin: 04/14/18 09:54 Dose: 1 tab Pantoprazole Sodium (Protonix Ec Tab) 40 mg PO 0600 [facility] Prednisone (Prednisone Tab) 40 mg PO DAILY [facility] Last Admin: 04/14/18 09:54 Dose: 40 mg Thiamine HCl (Vitamin B1 Tab) 50 mg PO DAILY [facility] Last Admin: 04/14/18 09:53 Dose: 50 mg - Labs Labs: 04/14/18 05:30 04/14/18 05:30 PT 18.7 SECONDS (9.4-12.5) H 04/14/18 05:30 INR 1.61 04/14/18 05:30 APTT 36.8 Seconds (25.1-36.5) H 04/11/18 19:12 - Constitutional Appears: No Acute Distress, Chronically Ill - Head Exam Head Exam: ATRAUMATIC, NORMAL INSPECTION - Eye Exam Eye Exam: EOMI, Scleral icterus. absent: Conjunctival injection - ENT Exam ENT Exam: Mucous Membranes Moist, Normal External Ear Exam. absent: Mucous Membranes Dry - Respiratory Exam Respiratory Exam: NORMAL BREATHING PATTERN. absent: Accessory Muscle Use, Respiratory Distress - GI/Abdominal Exam GI & Abdominal Exam: Distended (mildly), Soft, Normal Bowel Sounds. absent: Bruit, Firm, Guarding, Rigid, Tenderness, Mass, Organomegaly, Pulsatile Mass Assessment and Plan - Assessment and Plan (Free Text) Assessment: 37 yo WM with EtOH Abuse presenting with abd pain. # Abd Pain: Likely multifactorial in nature related to Severe EtOH Hepatitis, EtOH gastritis, EtOH Pancreatitis (though lipase not 3xULN, symptoms have been going on for days and patient may be progressing to chronic pancreatitis) as well as abdominal ascites due to newly diagnosed EtOH cirrhosis. # EtOH Cirrhosis + Severe Hepatitis: MELD-Na 20 on admission, Maddrey 30 but nayla to 36.2 on 04/13. Therefore would benefit from steroids. SBP negative on para on 04/13. Start prednisolone on 04/14. - Ascites: Appreciated on exam and CT. SBP negative - HCC: Though AFP not elevate, triple phase CT concerning for HCC - HE: None apparent at this time. - EV: Needs screening EGD at some point # EtOH Abuse: 1/3 gallon vodka daily. Last drink just prior to admission. # Tobacco abuse: 1 ppd x years. Plan: - Prednisolone 40 mg daily x 4 weeks, but needs f/u labs of CMP, INR, CBC to calculate Lille score to see if benefitting from steroids. If improvement, then continue for a total of 4 week of steroids with subsequent taper. If Lille score unfavorable, then DC steroids --- Communicated this to patient, expressed understanding --- Also recommended outpatient with liver clinic in [place] at [facility] - Monitor CMP, INR, CBC daily - Viral hep negative; therefore, vaccinate for Hep A and B - Nutrition consult - Social work consult - Counseled on EtOH and Tobacco cessation - CIWA protocol, supp vitamins, monitor for EtOH withdrawal - IVF per primary Pt seen and examined with Dr. Zepeda. See attestation for further recs/changes. <Inocencio Zepeda - Last Filed: 04/14/18 16:14> Objective - Vital Signs/Intake and Output Vital Signs (last 24 hours): Temp Pulse Resp BP Pulse Ox 98 F 86 20 113/83 98 04/14/18 12:00 04/14/18 12:00 04/14/18 12:00 04/14/18 12:00 04/14/18 06:00 Intake and Output: 04/14/18 04/14/18 06:59 18:59 Intake Total 480 Balance 480 - Medications Medications: Current Medications Folic Acid (Folic Acid) 1 mg PO DAILY [facility] Last Admin: 04/14/18 09:54 Dose: 1 mg Heparin Sodium (Porcine) (Heparin) 5,000 units SC Q12 [facility]; Protocol Last Admin: 04/14/18 09:54 Dose: 5,000 units Sodium Chloride (Sodium Chloride 0.9%) 1,000 mls @ 100 mls/hr IV .Q10H [facility] Last Admin: 04/14/18 14:21 Dose: 100 mls/hr Lorazepam (Ativan) 1 mg IVP Q6H PRN; Protocol PRN Reason: Anxiety Last Admin: 04/14/18 00:33 Dose: 1 mg Morphine Sulfate (Morphine) 1 mg IVP Q4H PRN PRN Reason: Pain, severe (8-10) Multivitamins/Minerals (Therapeutic-M Tab) 1 tab PO 0800 [facility] Last Admin: 04/14/18 09:54 Dose: 1 tab Pantoprazole Sodium (Protonix Ec Tab) 40 mg PO 0600 [facility] Prednisone (Prednisone Tab) 40 mg PO DAILY [facility] Last Admin: 04/14/18 09:54 Dose: 40 mg Thiamine HCl (Vitamin B1 Tab) 50 mg PO DAILY [facility] Last Admin: 04/14/18 09:53 Dose: 50 mg - Labs Labs: 04/14/18 05:30 04/14/18 05:30 PT 18.7 SECONDS (9.4-12.5) H 04/14/18 05:30 INR 1.61 04/14/18 05:30 APTT 36.8 Seconds (25.1-36.5) H 04/11/18 19:12 Attending/Attestation - Attestation I have personally seen and examined this patient.: Yes I have fully participated in the care of the patient.: Yes I have reviewed all pertinent clinical information, including history, physical exam and plan: Yes Notes (Text): 04/14/18 16:10 I have seen and examined patient with GI fellow. He is seen resting in bed comfortably, denies abdominal pain, nausea, vomiting, diarrhea, fever/chills. Tolerating PO diet without difficulty. s/p paracentesis yesterday with 2 L removed. Review of vitals from today are normal. ETOH decompensated cirrhosis Acute ETOH hepatitis Ascites, s/p paracentesis, negative for SBP Liver CT reviewed by me showing potential regenerative hepatic nodule, not consistent with HCC - Low sodium diet as tolerated - Patient started on prednisolone therapy given high 6 month mortality rate of acute ETOH hepatitis in current setting. He will require outpatient follow up with repeat LFTs and to ensure compliance with taper regimen. Patient given [facility] liver clinic telephone contact information. - ETOH cessation counseling - Continue to monitor LFTs - Patient would benefit from outpatient elective EGD for variceal screening - No further planned GI intervention, will sign off case. Please reconsult as necessary, thank you.
--- NOTE | 2018-04-14 12:49 | CP.PCM.PN ---
<Livan Noel - Last Filed: 04/14/18 12:57> Subjective - Date & Time of Evaluation Date of Evaluation: 04/14/18 Time of Evaluation: 10:00 - Subjective Subjective: Livan Noel DO, PGY-1 Hospitalist Progress Note for Dr. Kelly Patient was seen and examined at bedside this AM. He offers no new complaints and denies feeling any tremors or withdrawal from alcohol. He states there is minimal pain from the paracentesis site. Objective - Vital Signs/Intake and Output Vital Signs (last 24 hours): Temp Pulse Resp BP Pulse Ox 98 F 86 20 113/83 98 04/14/18 12:00 04/14/18 12:00 04/14/18 12:00 04/14/18 12:00 04/14/18 06:00 Intake and Output: 04/14/18 04/14/18 06:59 18:59 Intake Total 480 Balance 480 - Medications Medications: Current Medications Folic Acid (Folic Acid) 1 mg PO DAILY [facility] Last Admin: 04/14/18 09:54 Dose: 1 mg Heparin Sodium (Porcine) (Heparin) 5,000 units SC Q12 [facility]; Protocol Last Admin: 04/14/18 09:54 Dose: 5,000 units Sodium Chloride (Sodium Chloride 0.9%) 1,000 mls @ 100 mls/hr IV .Q10H [facility] Last Admin: 04/14/18 05:43 Dose: 100 mls/hr Lorazepam (Ativan) 1 mg IVP Q6H PRN; Protocol PRN Reason: Anxiety Last Admin: 04/14/18 00:33 Dose: 1 mg Morphine Sulfate (Morphine) 1 mg IVP Q4H PRN PRN Reason: Pain, severe (8-10) Multivitamins/Minerals (Therapeutic-M Tab) 1 tab PO 0800 [facility] Last Admin: 04/14/18 09:54 Dose: 1 tab Pantoprazole Sodium (Protonix Ec Tab) 40 mg PO 0600 [facility] Prednisone (Prednisone Tab) 40 mg PO DAILY [facility] Last Admin: 04/14/18 09:54 Dose: 40 mg Thiamine HCl (Vitamin B1 Tab) 50 mg PO DAILY [facility] Last Admin: 04/14/18 09:53 Dose: 50 mg - Labs Labs: 04/14/18 05:30 04/14/18 05:30 PT 18.7 SECONDS (9.4-12.5) H 04/14/18 05:30 INR 1.61 04/14/18 05:30 APTT 36.8 Seconds (25.1-36.5) H 04/11/18 19:12 - Constitutional Appears: Non-toxic, No Acute Distress - Head Exam Head Exam: ATRAUMATIC, NORMOCEPHALIC - Eye Exam Eye Exam: EOMI, PERRL, Scleral icterus - ENT Exam ENT Exam: Mucous Membranes Moist - Neck Exam Neck Exam: Full ROM, Normal Inspection - Respiratory Exam Respiratory Exam: Clear to Ausculation Bilateral, NORMAL BREATHING PATTERN. absent: Accessory Muscle Use, Chest Wall Tenderness, Rales, Rhonchi, Wheezes, Respiratory Distress - Cardiovascular Exam Cardiovascular Exam: REGULAR RHYTHM, RRR, +S1, +S2. absent: Gallop, Rubs, Murmur - GI/Abdominal Exam GI & Abdominal Exam: Soft, Normal Bowel Sounds. absent: Guarding, Tenderness - Extremities Exam Extremities Exam: Full ROM, Normal Inspection - Back Exam Back Exam: NORMAL INSPECTION - Neurological Exam Neurological Exam: Alert, Awake, Oriented x3 - Psychiatric Exam Psychiatric exam: Normal Affect, Normal Mood - Skin Skin Exam: Dry, Intact, Warm Assessment and Plan - Assessment and Plan (Free Text) Assessment: 37 yo M with PMH of acute pancreatitis x 2 and alcohol abuse presented to ED with worsening lower abdominal pain, nausea, and vomiting. He was found to have lipase of 649 in ED. He was also found to have significant ascites surrounding the liver on CTAP. He had paracentesis yesterday which was negative for SBP. Plan: 1. Acute alcoholic pancreatitis Monitor for worsening s/sx of alcohol withdrawal CIWA score was 1 yesterday Continue seizure, aspiration pxns GI consulted, recs appreciated 2. Acute alcoholic hepatitis with cirrhosis CT abdomen/pelvis completed showed changes c/w cirrhosis, portal HTN, diffuse ascites worse over the liver, hepatosplenomegaly, a vague vascular lesion in the right lobe approx 2 cm Paracentesis negative for SBP Maddrey score increased to 50.2 Has been placed on steroids per GI AFP 2.5, CEA 5.9, hep panel negative GI following, recs appreciated 3. Liver mass Seen on CTAP Will also need triple phase CT to further characterize this lesion F/u GI plan regarding biopsy of the mass F/u additional GI recs 4. EtOH abuse Counseled patient on importance of cessation, especially given dx of cirrhosis with likely need for transplant in future Continue [facility] protocol 5. Tobacco abuse Patient with emphysematous changes in lower lobes b/l May have underlying lung disease Currently no symptoms of cough or dyspnea But consider chest CT if these symptoms develop or as an outpatient DVT/GI PPX: sc heparin, protonix Full Code Advance diet as tolerated Monitor on telemetry Case and plan reviewed and discussed with my attending Dr. Leticia Noel DO IM Resident PGY-1 Pager: [phone] <Shaka Kelly - Last Filed: 04/14/18 16:10> Objective - Vital Signs/Intake and Output Vital Signs (last 24 hours): Temp Pulse Resp BP Pulse Ox 98 F 86 20 113/83 98 04/14/18 12:00 04/14/18 12:00 04/14/18 12:00 04/14/18 12:00 04/14/18 06:00 Intake and Output: 04/14/18 04/14/18 06:59 18:59 Intake Total 480 Balance 480 - Medications Medications: Current Medications Folic Acid (Folic Acid) 1 mg PO DAILY [facility] Last Admin: 04/14/18 09:54 Dose: 1 mg Heparin Sodium (Porcine) (Heparin) 5,000 units SC Q12 [facility]; Protocol Last Admin: 04/14/18 09:54 Dose: 5,000 units Sodium Chloride (Sodium Chloride 0.9%) 1,000 mls @ 100 mls/hr IV .Q10H [facility] Last Admin: 04/14/18 14:21 Dose: 100 mls/hr Lorazepam (Ativan) 1 mg IVP Q6H PRN; Protocol PRN Reason: Anxiety Last Admin: 04/14/18 00:33 Dose: 1 mg Morphine Sulfate (Morphine) 1 mg IVP Q4H PRN PRN Reason: Pain, severe (8-10) Multivitamins/Minerals (Therapeutic-M Tab) 1 tab PO 0800 [facility] Last Admin: 04/14/18 09:54 Dose: 1 tab Pantoprazole Sodium (Protonix Ec Tab) 40 mg PO 0600 [facility] Prednisone (Prednisone Tab) 40 mg PO DAILY [facility] Last Admin: 04/14/18 09:54 Dose: 40 mg Thiamine HCl (Vitamin B1 Tab) 50 mg PO DAILY [facility] Last Admin: 04/14/18 09:53 Dose: 50 mg - Labs Labs: 04/14/18 05:30 04/14/18 05:30 PT 18.7 SECONDS (9.4-12.5) H 04/14/18 05:30 INR 1.61 04/14/18 05:30 APTT 36.8 Seconds (25.1-36.5) H 04/11/18 19:12 Attending/Attestation - Attestation I have personally seen and examined this patient.: Yes I have fully participated in the care of the patient.: Yes I have reviewed all pertinent clinical information, including history, physical exam and plan: Yes Notes (Text): 04/14/18 16:07 Attending note; Patient seen and examined with resident. Patient is alert and awake. Complaining of mild abdominal pain. Denies any nausea, vomiting. Started on liquid diet. Advance as tolerated. Complaining of mild abdominal distention. On IV fluids. Patient is a 37 -year-old male with PMH of acute pancreatitis x 2 and alcohol abuse presented to ED with worsening lower abdominal pain, nausea, and vomiting. He was found to have lipase of 649. 1.Acute pancreatitis; resolving slowly .secondary to alcohol abuse. Continue IV fluids. Pain management. 2. Acute alcoholic hepatitis; started on prednisone. 3. Cirrhosis with ascites; CT scan showed hepatomegaly with cirrhosis, moderate ascites and splenomegaly. There is 2 cm hyperdense nodule in the right lobe of the liver. Triple phase CT ordered. 4. Ascites; s/p paracentesis yesterday. SBP ruled out. 5. Alcohol abuse; continue multivitamin, thiamine, folic acid. Monitor with CIWA protocol. IV Ativan when necessary. Complete alcohol cessation is strongly advised. Patient will be referred to [facility] hepatology clinic upon discharge. 6. Smoking; smoking cessation is strongly advised. The diagnosis, follow-up plan discussed with patient in detail. Case discussed with GI in detail. residential program worker evaluation requested for AA meetings and rehabilitation information. Patient will be referred to [facility] [place] for further follow-up.
[2018-04-15] MEDS ORDERED: Pantoprazole 40 mg EC Tab PO SCH (06:00)
[2018-04-15 07:25] LABS: BASO # 0.01 K/mm3 (0.0-2.0); BASO % 0.1 % (0.0-3.0); EOS % 0.4 % (1.5-5.0); GRAN # 5.12 (1.4-6.5); GRAN % 71.3 % (50.0-68.0); HEMOGLOBIN 11.2 g/dL (14.0-18.0); LYMPH # 1.5 (1.2-3.4); LYMPH % 20.3 % (22.0-35.0); MEAN CELL VOLUME 99.7 fl (80.0-105.0); MEAN CORPUSCULAR HEMOGLOBIN 34.1 pg (25.0-35.0); MEAN CORPUSCULAR HGB CONC 34.3 g/dl (31.0-37.0); MEAN PLATELET VOLUME 11.6 fl (7.0-11.0); MONO # 0.6 (0.1-0.6); MONO % 7.9 % (1.0-6.0); RBC 3.28 10^6/uL (3.5-6.1); RED CELL DISTRIBUTION WIDTH 14.2 % (11.5-14.5); WHITE BLOOD COUNT 7.2 10^3/uL (4.5-11.0)
--- NOTE | 2018-04-15 07:33 | CP.PCM.PN ---
Subjective - Date & Time of Evaluation Date of Evaluation: 04/15/18 Time of Evaluation: 07:00 - Subjective Subjective: Livan Noel DO, PGY-1 Hospitalist Progress Note for Dr. Kelly Patient was seen and examined at bedside this AM. He offers no new complaints this AM and states abdominal pain and swelling have improved. Objective - Vital Signs/Intake and Output Vital Signs (last 24 hours): Temp Pulse Resp BP Pulse Ox 98.5 F 90 18 138/103 H 98 04/14/18 15:45 04/14/18 15:45 04/14/18 15:45 04/14/18 15:45 04/14/18 06:00 Intake and Output: 04/15/18 04/15/18 06:59 18:59 Intake Total 720 Balance 720 - Medications Medications: Current Medications Folic Acid (Folic Acid) 1 mg PO DAILY [facility] Last Admin: 04/14/18 09:54 Dose: 1 mg Heparin Sodium (Porcine) (Heparin) 5,000 units SC Q12 [facility]; Protocol Last Admin: 04/14/18 21:33 Dose: Not Given Sodium Chloride (Sodium Chloride 0.9%) 1,000 mls @ 100 mls/hr IV .Q10H [facility] Last Admin: 04/14/18 14:21 Dose: 100 mls/hr Lorazepam (Ativan) 1 mg IVP Q6H PRN; Protocol PRN Reason: Anxiety Last Admin: 04/14/18 00:33 Dose: 1 mg Morphine Sulfate (Morphine) 1 mg IVP Q4H PRN PRN Reason: Pain, severe (8-10) Multivitamins/Minerals (Therapeutic-M Tab) 1 tab PO 0800 [facility] Last Admin: 04/14/18 09:54 Dose: 1 tab Pantoprazole Sodium (Protonix Ec Tab) 40 mg PO 0600 [facility] Last Admin: 04/15/18 05:42 Dose: Not Given Prednisone (Prednisone Tab) 40 mg PO DAILY [facility] Last Admin: 04/14/18 09:54 Dose: 40 mg Thiamine HCl (Vitamin B1 Tab) 50 mg PO DAILY [facility] Last Admin: 04/14/18 09:53 Dose: 50 mg - Labs Labs: 04/15/18 07:00 04/14/18 05:30 PT 18.7 SECONDS (9.4-12.5) H 04/14/18 05:30 INR 1.61 04/14/18 05:30 APTT 36.8 Seconds (25.1-36.5) H 04/11/18 19:12 - Constitutional Appears: Non-toxic, No Acute Distress - Head Exam Head Exam: ATRAUMATIC, NORMOCEPHALIC - Eye Exam Eye Exam: EOMI, Scleral icterus - ENT Exam ENT Exam: Mucous Membranes Moist - Neck Exam Neck Exam: Full ROM, Normal Inspection - Respiratory Exam Respiratory Exam: Clear to Ausculation Bilateral. absent: Accessory Muscle Use, Chest Wall Tenderness, Rales, Rhonchi, Wheezes - Cardiovascular Exam Cardiovascular Exam: REGULAR RHYTHM, RRR, +S1, +S2. absent: Gallop, Rubs, Murmur - GI/Abdominal Exam GI & Abdominal Exam: Soft. absent: Firm, Guarding, Tenderness - Extremities Exam Extremities Exam: Full ROM. absent: Pedal Edema - Back Exam Back Exam: NORMAL INSPECTION - Neurological Exam Neurological Exam: Alert, Awake, Oriented x3 - Psychiatric Exam Psychiatric exam: Normal Affect, Normal Mood - Skin Skin Exam: Dry, Intact, Warm Additional comments: appears diffusely jaundiced but improved from prior exams Assessment and Plan - Assessment and Plan (Free Text) Assessment: 37 yo M with PMH of acute pancreatitis x 2 and alcohol abuse presented to ED with worsening lower abdominal pain, nausea, and vomiting. He was found to have lipase of 649 in ED. He was also found to have significant ascites surrounding the liver on CTAP. He had paracentesis yesterday which was negative for SBP. Plan: 1. Acute alcoholic pancreatitis Monitor for worsening s/sx of alcohol withdrawal CIWA score was 1 yesterday Continue seizure, aspiration pxns GI consulted, recs appreciated 2. Acute alcoholic hepatitis with cirrhosis CT abdomen/pelvis completed showed changes c/w cirrhosis, portal HTN, diffuse ascites worse over the liver, hepatosplenomegaly, a vague vascular lesion in the right lobe approx 2 cm Paracentesis negative for SBP Maddrey score increased to 50.2 Has been placed on steroids per GI AFP 2.5, CEA 5.9, hep panel negative GI following, recs appreciated 3. Liver mass Seen on CTAP Will also need triple phase CT to further characterize this lesion F/u GI plan regarding biopsy of the mass F/u additional GI recs 4. EtOH abuse Counseled patient on importance of cessation, especially given dx of cirrhosis with likely need for transplant in future Continue CiWA protocol 5. Tobacco abuse Patient with emphysematous changes in lower lobes b/l May have underlying lung disease Currently no symptoms of cough or dyspnea But consider chest CT if these symptoms develop or as an outpatient DVT/GI PPX: sc heparin, protonix Full Code Advance diet as tolerated Monitor on telemetry Case and plan reviewed and discussed with my attending Dr. Leticia Noel, IM Resident PGY-1 Pager: [phone]
[2018-04-15 08:08] LABS: ALB/GLOB RATIO 0.7 (1.1-1.8); ALBUMIN 2.7 g/dL (3.0-4.8); ALT/SGPT 56 U/L (7-56); AST/SGOT 147 U/L (17-59); BLOOD UREA NITROGEN 7 mg/dL (7-21); CALCIUM 7.9 mg/dL (8.4-10.5); GFR NON-AFRICAN AMERICAN > 60
[2018-04-15 08:20] LABS: INR 1.59; PROTHROMBIN TIME 18.5 SECONDS (9.4-12.5)
[2018-04-15 08:44] VITALS: BP 124/89; PULSE 68; RESP 20; TEMP 98.4
[2018-04-15] MEDS ORDERED: Potassium Chloride 20 mEq ER Tab PO STA (09:26)
[2018-04-15] MEDS: Sodium Chloride 0.9% 1,000 ML IV SCH (09:43)
--- NOTE | 2018-04-15 14:08 | CP.PCM.DIS ---
<Livan Noel - Last Filed: 04/15/18 14:17> Provider - Provider Date of Admission: 04/11/18 20:17 Attending physician: Shaka Kelly MD Primary care physician: NO PRIMARY CARE PROVIDER Consults: GI: Duane IR: Tomy Time Spent in preparation of Discharge (in minutes): 40 Diagnosis - Discharge Diagnosis (1) Alcohol abuse Status: Chronic (2) Cirrhosis Status: Chronic (3) Elevated LFTs Status: Acute (4) Pancreatitis, acute Status: Acute Hospital Course - Lab Results Lab Results: Micro Results 04/13/18 17:20 Ascitic Fluid Gram Stain - Final 04/13/18 17:20 Ascitic Fluid Body Fluid Culture - Preliminary NO GROWTH AFTER 24 HOURS Most Recent Lab Values WBC 7.2 10^3/uL (4.5-11.0) 04/15/18 07:00 RBC 3.28 10^6/uL (3.5-6.1) L 04/15/18 07:00 Hgb 11.2 g/dL (14.0-18.0) L 04/15/18 07:00 Hct 32.7 % (42.0-52.0) L 04/15/18 07:00 MCV 99.7 fl (80.0-105.0) 04/15/18 07:00 MCH 34.1 pg (25.0-35.0) 04/15/18 07:00 MCHC 34.3 g/dl (31.0-37.0) 04/15/18 07:00 RDW 14.2 % (11.5-14.5) 04/15/18 07:00 Plt Count 129 10^3/uL (120.0-450.0) 04/15/18 07:00 MPV 11.6 fl (7.0-11.0) H 04/15/18 07:00 Gran % 71.3 % (50.0-68.0) H 04/15/18 07:00 Lymph % (Auto) 20.3 % (22.0-35.0) L 04/15/18 07:00 [place] % (Auto) 7.9 % (1.0-6.0) H 04/15/18 07:00 Eos % (Auto) 0.4 % (1.5-5.0) L 04/15/18 07:00 Baso % (Auto) 0.1 % (0.0-3.0) 04/15/18 07:00 Gran # 5.12 (1.4-6.5) 04/15/18 07:00 Lymph # (Auto) 1.5 (1.2-3.4) 04/15/18 07:00 [place] # (Auto) 0.6 (0.1-0.6) 04/15/18 07:00 Eos # (Auto) 0.0 (0.0-0.7) 04/15/18 07:00 Baso # (Auto) 0.01 K/mm3 (0.0-2.0) 04/15/18 07:00 PT 18.5 SECONDS (9.4-12.5) H 04/15/18 07:29 INR 1.59 04/15/18 07:29 APTT 36.8 Seconds (25.1-36.5) H 04/11/18 19:12 pO2 162 mm/Hg (30-55) H 04/11/18 19:12 VBG pH 7.47 (7.32-7.43) H 04/11/18 19:12 VBG pCO2 39.0 (40-60) L 04/11/18 19:12 VBG HCO3 28.4 mmol/l (21-28) H 04/11/18 19:12 VBG Total CO2 29.6 mmol.L (22-28) H 04/11/18 19:12 VBG O2 Sat (Calc) 100.3 % (40-65) H 04/11/18 19:12 VBG Base Excess 4.5 mmol/L (0.0-2.0) H 04/11/18 19:12 VBG Potassium 2.7 mmol/L (3.6-5.2) L 04/11/18 19:12 Sodium 134.0 mmol/L (132-148) 04/11/18 19:12 Chloride 97.0 mmol/L (98-107) L 04/11/18 19:12 Glucose 120 mg/dl (75-110) H 04/11/18 19:12 Lactate 1.9 mmol/L (0.7-2.1) 04/11/18 19:12 FiO2 21.0 % 04/11/18 19:12 Sodium 136 mmol/L (132-148) 04/15/18 07:00 Potassium 3.4 mmol/L (3.6-5.0) L 04/15/18 07:00 Chloride 106 mmol/L (98-107) 04/15/18 07:00 Carbon Dioxide 24 mmol/L (21-33) 04/15/18 07:00 Anion Gap 9 (10-20) L 04/15/18 07:00 BUN 7 mg/dL (7-21) 04/15/18 07:00 Creatinine 0.4 mg/dl (0.8-1.5) L 04/15/18 07:00 Est GFR ( Amer) > 60 04/15/18 07:00 Est GFR (Non-Af Amer) > 60 04/15/18 07:00 Random Glucose 85 mg/dL (70-110) 04/15/18 07:00 Calcium 7.9 mg/dL (8.4-10.5) L 04/15/18 07:00 Phosphorus 2.5 mg/dL (2.5-4.5) 04/15/18 07:00 Magnesium 1.7 mg/dL (1.7-2.2) 04/15/18 07:00 Total Bilirubin 14.7 mg/dL (0.2-1.3) H 04/15/18 07:00 AST 147 U/L (17-59) H D 04/15/18 07:00 ALT 56 U/L (7-56) 04/15/18 07:00 Alkaline Phosphatase 475 U/L (38-126) H D 04/15/18 07:00 Ammonia 52 umol/L (9-33) H 04/13/18 06:00 Total Creatine Kinase 48 U/L (35-230) 04/12/18 07:00 Total Protein 6.5 g/dL (5.8-8.3) 04/15/18 07:00 Albumin 2.7 g/dL (3.0-4.8) L 04/15/18 07:00 Globulin 3.8 gm/dL 04/15/18 07:00 Albumin/Globulin Ratio 0.7 (1.1-1.8) L 04/15/18 07:00 Amylase 141 U/L (35-125) H 04/11/18 19:12 Lipase 649 U/L (23-300) H 04/11/18 19:12 Alpha Fetoprotein 2.5 ng/mL (0.0-7.5) 04/12/18 07:00 Carcinoembryonic Ag 5.9 ng/mL (0.0-3.0) H 04/12/18 07:00 Venous Blood Potassium 2.7 mmol/L (3.6-5.2) L 04/11/18 19:12 Urine Color Dark yellow (YELLOW) 04/11/18 20:51 Urine Appearance Clear (CLEAR) 04/11/18 20:51 Urine pH 7.0 (4.7-8.0) 04/11/18 20:51 Ur Specific [place] 1.010 (1.005-1.035) 04/11/18 20:51 Urine Protein Negative mg/dL (<30 mg/dL) 04/11/18 20:51 Urine Glucose (UA) Negative mg/dL (NEGATIVE) 04/11/18 20:51 Urine Ketones Negative mg/dL (NEGATIVE) 04/11/18 20:51 Urine Blood Trace-intact (NEGATIVE) H 04/11/18 20:51 Urine Nitrate Negative (NEGATIVE) 04/11/18 20:51 Urine Bilirubin Large (NEGATIVE) H 04/11/18 20:51 Urine Urobilinogen 4.0 E.U./dL (<1 E.U./dL) H 04/11/18 20:51 Ur Leukocyte Esterase Negative Sara/uL (NEGATIVE) 04/11/18 20:51 Urine RBC 0 - 2 /hpf (0-2) 04/11/18 20:51 Urine WBC Negative /hpf (0-6) 04/11/18 20:51 Ur Epithelial Cells None /hpf (0-5) 04/11/18 20:51 Urine Bacteria Neg (NEG) 04/11/18 20:51 Fluid Source Peritoneal 04/13/18 17:20 Fluid Appearance Sl cloudy (CLEAR) 04/13/18 17:20 Fluid WBC 150.0 /uL (0.0-300.0) 04/13/18 17:20 Fluid RBC 218.0 /uL (0.0-0.0) H 04/13/18 17:20 Fluid Tot Cell Count 100 (0-0) H 04/13/18 17:20 Fluid Neutrophils 4.7 % (0-0) H 04/13/18 17:20 Fluid Lymphocytes 95.3 % (0-0) H 04/13/18 17:20 Fld Monocyte/Macrophag TEST NOT PERFORMED 04/13/18 17:20 Fluid Comment TEST NOT PERFORMED 04/13/18 17:20 Urine Opiates Screen Negative (NEGATIVE) 04/12/18 02:30 Urine Methadone Screen Negative (NEGATIVE) 04/12/18 02:30 Ur Barbiturates Screen Negative (NEGATIVE) 04/12/18 02:30 Ur Phencyclidine Scrn Negative (NEGATIVE) 04/12/18 02:30 Ur Amphetamines Screen Negative (NEGATIVE) 04/12/18 02:30 U Benzodiazepines Scrn Negative (NEGATIVE) 04/12/18 02:30 U Oth Cocaine Metabols Negative (NEGATIVE) 04/12/18 02:30 U Cannabinoids Screen Negative (NEGATIVE) 04/12/18 02:30 Alcohol, Quantitative 256 mg/dL (0-10) H 04/11/18 19:12 Hepatitis A IgM Ab Negative (NEGATIVE) 04/12/18 07:00 Hep Bs Antigen Negative (NEGATIVE) 04/12/18 07:00 Hep B Core IgM Ab Negative (NEGATIVE) 04/12/18 07:00 Hepatitis C Antibody Negative (NEGATIVE) 04/12/18 07:00 - Hospital Course Hospital Course: Livan Noel DO, PGY-1 Hospitalist Discharge Summary for Dr. Kelly Mr. Cooper is a 37 year old male with PMH of acute pancreatitis x 2 and alcohol abuse presented to ED with worsening lower abdominal pain, nausea, and vomiting. He was found to have lipase of 649 in ED. He was also found to have significant ascites surrounding the liver on CTAP. He was also found to have changes c/w cirrhosis on CTAP. He had scleral icterus and appeared diffusely jaundiced on exam. Most of the ascites found on CTAP was surrounding the liver. He was subsequently admitted for further management of abdominal pain and ascites. He was placed on ciwa protocol and had two 1 mg doses of ativan throughout his stay. IR was consulted for CT guided paracentesis as most of the fluid was surrounding the liver. 2.1 L of fluid were removed. Peritoneal fluid analysis was negative for SBP. For his pancreatitis, he was started on 200 cc/hr of NS and weaned down to 100 cc/hr. His abdominal pain continued to improve with IVF resuscitation and after the paracentesis. Initial Maddrey score was 30 but nayla to 36.2 throughout admission. Steroids were started. GI recommended continuing steroids for four weeks total. This AM, he is tolerating diet well and feels ready to go home. Rx for steroids were given for 2 weeks only. He was instructed to follow up with Dr. Zepeda within 2 weeks to see if he should continue on steroids. The importance of alcohol abstinence was emphasized with Mr. Cooper. We explained that drinking while on steroids would greatly increase his risk of GI bleed. We also set up an appointment for him downstairs at the [facility]. We instructed him to follow up there for further information on [facility] clinic at [facility] in [place]. We also instructed him to go to the clinic within 1 week to get f/u blood work completed. Further instructions were given as shown below. All questions were answered. Discharge Exam - Head Exam Head Exam: ATRAUMATIC, NORMOCEPHALIC - Eye Exam Eye Exam: EOMI, Scleral icterus - ENT Exam ENT Exam: Mucous Membranes Moist - Neck Exam Neck exam: Full Rom, Normal Inspection - Respiratory Exam Respiratory Exam: Clear to PA & Lateral. absent: Accessory Muscle Use, Rales, Rhonchi, Wheezes, Respiratory Distress - Cardiovascular Exam Cardiovascular Exam: REGULAR RHYTHM, RRR, +S1, +S2. absent: Diastolic murmur, G allop, Rubs, Systolic Murmur - GI/Abdominal Exam GI & Abdominal Exam: Normal Bowel Sounds, Soft. absent: Guarding, Tenderness - Extremities Exam Extremities exam: full ROM, normal inspection - Back Exam Back exam: NORMAL INSPECTION - Neurological Exam Neurological exam: Alert, Oriented x3 - Psychiatric Exam Psychiatric exam: Normal Affect, Normal Mood - Skin Skin Exam: Dry, Intact, Warm Additional comments: diffusely jaundiced but improved from initial examination Discharge Plan - Discharge Medications Prescriptions: Folic Acid 1 mg PO DAILY #30 tab Multimineral/Multivitamin [Therapeutic-M Tab] 1 tab PO 0800 #30 tab Pantoprazole [Protonix EC Tab] 40 mg PO 0600 #30 ect predniSONE [predniSONE Tab] 40 mg PO DAILY #14 tab Thiamine [Vitamin B1 Tab] 50 mg PO DAILY #30 tab - Follow Up Plan Condition: STABLE Disposition: HOME/ ROUTINE Instructions: Pancreatitis (DC), Cirrhosis (DC), Alcohol Abuse and Alcoholism (DC), Effects of Alcohol on Your Health Additional Instructions: You need Hepatitis A and B vaccines outpatient. Please go to [facility] within 1 week to get these vaccines. Abstaining from tobacco and alcohol is strongly advised Obtain abdominal US with arterial and venous doppler every 6 months to monitor your liver. Follow up at [facility] outpatient in 1 week. We have called to make you an appointment. They will call you to remind you of your appointment time. If needed, you may reschedule. The clinic phone number is [phone]. Repeat blood work in 1 week: CBC, CMP, PT/INR. Please take the steroid medications we have given you for 2 weeks. It is very important you follow up with Dr. Zepeda within 2 weeks to see if you need to continue steroids. His clinic number is [phone]. His address is: [address] [place] [address] [address] [place] [address]. After you stop drinking alcohol for 6 months, go to [facility] in [place], [place] for your liver transplant evaluation. We can help you set up kassie care at [facility] in [place] in the [facility] downstairs but you have to abstain from drinking alcohol for at least six months to be a candidate for liver transplant. Do NOT Drink while on prednisolone (the steroid), your risk of GI bleed will be VERY HIGH. Return to the ER for any worsening of symptoms. Referrals: Alcoholics Anonymous [Outside] [facility] at [facility] [Outside] <Shaka Kelly - Last Filed: 04/15/18 18:36> Provider - Provider Date of Admission: 04/11/18 20:17 Attending physician: Shaka Kelly MD Primary care physician: NO PRIMARY CARE PROVIDER Hospital Course - Lab Results Lab Results: Micro Results 04/13/18 17:20 Ascitic Fluid Gram Stain - Final 04/13/18 17:20 Ascitic Fluid Body Fluid Culture - Preliminary NO GROWTH AFTER 24 HOURS 04/13/18 17:20 Ascitic Fluid Fungal Culture - Preliminary Most Recent Lab Values WBC 7.2 10^3/uL (4.5-11.0) 04/15/18 07:00 RBC 3.28 10^6/uL (3.5-6.1) L 04/15/18 07:00 Hgb 11.2 g/dL (14.0-18.0) L 04/15/18 07:00 Hct 32.7 % (42.0-52.0) L 04/15/18 07:00 MCV 99.7 fl (80.0-105.0) 04/15/18 07:00 MCH 34.1 pg (25.0-35.0) 04/15/18 07:00 MCHC 34.3 g/dl (31.0-37.0) 04/15/18 07:00 RDW 14.2 % (11.5-14.5) 04/15/18 07:00 Plt Count 129 10^3/uL (120.0-450.0) 04/15/18 07:00 MPV 11.6 fl (7.0-11.0) H 04/15/18 07:00 Gran % 71.3 % (50.0-68.0) H 04/15/18 07:00 Lymph % (Auto) 20.3 % (22.0-35.0) L 04/15/18 07:00 [place] % (Auto) 7.9 % (1.0-6.0) H 04/15/18 07:00 Eos % (Auto) 0.4 % (1.5-5.0) L 04/15/18 07:00 Baso % (Auto) 0.1 % (0.0-3.0) 04/15/18 07:00 Gran # 5.12 (1.4-6.5) 04/15/18 07:00 Lymph # (Auto) 1.5 (1.2-3.4) 04/15/18 07:00 [place] # (Auto) 0.6 (0.1-0.6) 04/15/18 07:00 Eos # (Auto) 0.0 (0.0-0.7) 04/15/18 07:00 Baso # (Auto) 0.01 K/mm3 (0.0-2.0) 04/15/18 07:00 PT 18.5 SECONDS (9.4-12.5) H 04/15/18 07:29 INR 1.59 04/15/18 07:29 APTT 36.8 Seconds (25.1-36.5) H 04/11/18 19:12 pO2 162 mm/Hg (30-55) H 04/11/18 19:12 VBG pH 7.47 (7.32-7.43) H 04/11/18 19:12 VBG pCO2 39.0 (40-60) L 04/11/18 19:12 VBG HCO3 28.4 mmol/l (21-28) H 04/11/18 19:12 VBG Total CO2 29.6 mmol.L (22-28) H 04/11/18 19:12 VBG O2 Sat (Calc) 100.3 % (40-65) H 04/11/18 19:12 VBG Base Excess 4.5 mmol/L (0.0-2.0) H 04/11/18 19:12 VBG Potassium 2.7 mmol/L (3.6-5.2) L 04/11/18 19:12 Sodium 134.0 mmol/L (132-148) 04/11/18 19:12 Chloride 97.0 mmol/L (98-107) L 04/11/18 19:12 Glucose 120 mg/dl (75-110) H 04/11/18 19:12 Lactate 1.9 mmol/L (0.7-2.1) 04/11/18 19:12 FiO2 21.0 % 04/11/18 19:12 Sodium 136 mmol/L (132-148) 04/15/18 07:00 Potassium 3.4 mmol/L (3.6-5.0) L 04/15/18 07:00 Chloride 106 mmol/L (98-107) 04/15/18 07:00 Carbon Dioxide 24 mmol/L (21-33) 04/15/18 07:00 Anion Gap 9 (10-20) L 04/15/18 07:00 BUN 7 mg/dL (7-21) 04/15/18 07:00 Creatinine 0.4 mg/dl (0.8-1.5) L 04/15/18 07:00 Est GFR ( Amer) > 60 04/15/18 07:00 Est GFR (Non-Af Amer) > 60 04/15/18 07:00 Random Glucose 85 mg/dL (70-110) 04/15/18 07:00 Calcium 7.9 mg/dL (8.4-10.5) L 04/15/18 07:00 Phosphorus 2.5 mg/dL (2.5-4.5) 04/15/18 07:00 Magnesium 1.7 mg/dL (1.7-2.2) 04/15/18 07:00 Total Bilirubin 14.7 mg/dL (0.2-1.3) H 04/15/18 07:00 AST 147 U/L (17-59) H D 04/15/18 07:00 ALT 56 U/L (7-56) 04/15/18 07:00 Alkaline Phosphatase 475 U/L (38-126) H D 04/15/18 07:00 Ammonia 52 umol/L (9-33) H 04/13/18 06:00 Total Creatine Kinase 48 U/L (35-230) 04/12/18 07:00 Total Protein 6.5 g/dL (5.8-8.3) 04/15/18 07:00 Albumin 2.7 g/dL (3.0-4.8) L 04/15/18 07:00 Globulin 3.8 gm/dL 04/15/18 07:00 Albumin/Globulin Ratio 0.7 (1.1-1.8) L 04/15/18 07:00 Amylase 141 U/L (35-125) H 04/11/18 19:12 Lipase 649 U/L (23-300) H 04/11/18 19:12 Alpha Fetoprotein 2.5 ng/mL (0.0-7.5) 04/12/18 07:00 Carcinoembryonic Ag 5.9 ng/mL (0.0-3.0) H 04/12/18 07:00 Venous Blood Potassium 2.7 mmol/L (3.6-5.2) L 04/11/18 19:12 Urine Color Dark yellow (YELLOW) 04/11/18 20:51 Urine Appearance Clear (CLEAR) 04/11/18 20:51 Urine pH 7.0 (4.7-8.0) 04/11/18 20:51 Ur Specific [place] 1.010 (1.005-1.035) 04/11/18 20:51 Urine Protein Negative mg/dL (<30 mg/dL) 04/11/18 20:51 Urine Glucose (UA) Negative mg/dL (NEGATIVE) 04/11/18 20:51 Urine Ketones Negative mg/dL (NEGATIVE) 04/11/18 20:51 Urine Blood Trace-intact (NEGATIVE) H 04/11/18 20:51 Urine Nitrate Negative (NEGATIVE) 04/11/18 20:51 Urine Bilirubin Large (NEGATIVE) H 04/11/18 20:51 Urine Urobilinogen 4.0 E.U./dL (<1 E.U./dL) H 04/11/18 20:51 Ur Leukocyte Esterase Negative Sara/uL (NEGATIVE) 04/11/18 20:51 Urine RBC 0 - 2 /hpf (0-2) 04/11/18 20:51 Urine WBC Negative /hpf (0-6) 04/11/18 20:51 Ur Epithelial Cells None /hpf (0-5) 04/11/18 20:51 Urine Bacteria Neg (NEG) 04/11/18 20:51 Fluid Source Peritoneal 04/13/18 17:20 Fluid Appearance Sl cloudy (CLEAR) 04/13/18 17:20 Fluid WBC 150.0 /uL (0.0-300.0) 04/13/18 17:20 Fluid RBC 218.0 /uL (0.0-0.0) H 04/13/18 17:20 Fluid Tot Cell Count 100 (0-0) H 04/13/18 17:20 Fluid Neutrophils 4.7 % (0-0) H 04/13/18 17:20 Fluid Lymphocytes 95.3 % (0-0) H 04/13/18 17:20 Fld Monocyte/Macrophag TEST NOT PERFORMED 04/13/18 17:20 Fluid Comment TEST NOT PERFORMED 04/13/18 17:20 Urine Opiates Screen Negative (NEGATIVE) 04/12/18 02:30 Urine Methadone Screen Negative (NEGATIVE) 04/12/18 02:30 Ur Barbiturates Screen Negative (NEGATIVE) 04/12/18 02:30 Ur Phencyclidine Scrn Negative (NEGATIVE) 04/12/18 02:30 Ur Amphetamines Screen Negative (NEGATIVE) 04/12/18 02:30 U Benzodiazepines Scrn Negative (NEGATIVE) 04/12/18 02:30 U Oth Cocaine Metabols Negative (NEGATIVE) 04/12/18 02:30 U Cannabinoids Screen Negative (NEGATIVE) 04/12/18 02:30 Alcohol, Quantitative 256 mg/dL (0-10) H 04/11/18 19:12 Hepatitis A IgM Ab Negative (NEGATIVE) 04/12/18 07:00 Hep Bs Antigen Negative (NEGATIVE) 04/12/18 07:00 Hep B Core IgM Ab Negative (NEGATIVE) 04/12/18 07:00 Hepatitis C Antibody Negative (NEGATIVE) 04/12/18 07:00 Attending/Attestation - Attestation I have personally seen and examined this patient.: Yes I have fully participated in the care of the patient.: Yes I have reviewed all pertinent clinical information, including history, physical exam and plan: Yes Notes (Text): 04/15/18 18:34 Attending note; Patient seen and examined with resident. Patient is alert and awake. Denies any abdominal pain. Denies any nausea, vomiting. Tolerating regular diet. Patient is a 37 -year-old male with PMH of acute pancreatitis x 2 and alcohol abuse presented to ED with worsening lower abdominal pain, nausea, and vomiting. 1.Acute pancreatitis; resolved.secondary to alcohol abuse. 2. Acute alcoholic hepatitis; started on prednisone. LFTs improving slowly patient will be discharged home with prednisone and Prot amanda.. 3. Cirrhosis with ascites; CT scan showed hepatomegaly with cirrhosis, moderate ascites and splenomegaly. There is 2 cm hyperdense nodule in the right lobe of the liver. Triple phase CT is negative for hepatocellular carcinoma. 4. Ascites; s/p paracentesis yesterday. SBP ruled out. 5. Alcohol abuse; Complete alcohol cessation is strongly advised. Patient will be referred to [facility] hepatology clinic upon discharge. 6. Smoking; smoking cessation is strongly advised. The diagnosis, follow-up plan discussed with patient in detail. Patient will follow-up with [facility] clinic . Advised to follow-up with AA meetings. Referred to [facility]. Diagnosis, follow-up plan and treatment option discussed with patient in detail.
[2018-04-16 07:45] LABS: TOTAL PROTEIN PLEURAL FLUID <3.0 g/dL
== END 2018-04-15 14:02 | disposition home or self-care (01) | DRG 440 ==
LOC: ED 18:05 → ERH 20:17 → 5RNO 04-12 02:50 → 2RNO 04-12 05:04 → 5RNO 04-14 15:46
PROVIDERS: ADMIT Internal Medicine; ATTEND Internal Medicine
PROC: 0W9G3ZX Drainage of Peritoneal Cavity, Percutaneous Approach, Diagnostic (ICD-10-PCS; principal; 2018-04-13 16:00)
DX: K85.20 Alcohol induced acute pancreatitis without necrosis or infection (principal); K70.31 Alcoholic cirrhosis of liver with ascites; K70.11 Alcoholic hepatitis with ascites; K29.20 Alcoholic gastritis without bleeding; F10.129 Alcohol abuse with intoxication, unspecified; Y90.8 Blood alcohol level of 240 mg/100 ml or more; E87.6 Hypokalemia; E83.42 Hypomagnesemia; E88.09 Other disorders of plasma-protein metabolism, not elsewhere classified; R16.0 Hepatomegaly, not elsewhere classified; F17.210 Nicotine dependence, cigarettes, uncomplicated

== ENCOUNTER 2018-05-03 14:37 | Inpatient (IN) | payer MEDICAID, OTHER ==
[2018-05-03 14:53] VITALS: BMI 22.0
--- NOTE | 2018-05-03 15:42 | RAD ---
Date of service: 05/03/2018 HISTORY: admission COMPARISON: 04/12/2018 FINDINGS: LUNGS: No active pulmonary disease. PLEURA: No significant pleural effusion identified, no pneumothorax apparent. CARDIOVASCULAR: No aortic atherosclerotic calcification present. Normal cardiac size. No pulmonary vascular congestion. OSSEOUS STRUCTURES: Chronic bony deformity of the left scapula VISUALIZED UPPER ABDOMEN: Normal. OTHER FINDINGS: None. IMPRESSION: No active disease.
[2018-05-03 15:59] LABS: BASO # 0.02 K/mm3 (0.0-2.0); BASO % 0.1 % (0.0-3.0); EOS # 0.1 (0.0-0.7); GRAN # 10.49 (1.4-6.5); GRAN % 78.4 % (50.0-68.0); MEAN CELL VOLUME 99.8 fl (80.0-105.0); MEAN CORPUSCULAR HGB CONC 35.1 g/dl (31.0-37.0); MEAN PLATELET VOLUME 12.7 fl (7.0-11.0); MONO # 0.7 (0.1-0.6); MONO % 5.5 % (1.0-6.0); RED CELL DISTRIBUTION WIDTH 15.9 % (11.5-14.5); WHITE BLOOD COUNT 13.4 10^3/uL (4.5-11.0)
[2018-05-03 16:01] LABS: VENOUS BLOOD GAS BASE EXCESS 1.3 mmol/L (0.0-2.0); VENOUS BLOOD GAS PO2 55 mm/Hg (30-55); VENOUS BLOOD PH 7.37 (7.32-7.43)
[2018-05-03 16:41] LABS: INR 1.44; PARTIAL THROMBOPLASTIN TIME 35.5 Seconds (25.1-36.5); PROTHROMBIN TIME 16.5 SECONDS (9.4-12.5)
--- NOTE | 2018-05-03 16:46 | ED PDOC ---
Arrival/HPI - General Chief Complaint: Abdominal Pain Historian: Patient - History of Present Illness Narrative History of Present Illness (Text): 05/03/18 16:43 37yo male with pmhx of alcohol abuse, ascities, cirrhosis bib EMS for one week history of constant, achy periumbiical abdominal pain with abdominal distention. Pt states he was seen here 3weeks ago and had Paracentesis then. He denies fever, chills, nausea, vomiting, diarrhea, chest pain, SOB, any other complaint. Reports that his last alcohol intake was 3weeks ago. Past Medical History - Provider Review Nursing Documentation Reviewed: Yes - Past History Past History: Non-Contributing - Infectious Disease Hx of Infectious Diseases: None - Cardiac Hx Cardiac Disorders: No - Pulmonary Hx Respiratory Disorders: No - Neurological Hx Neurological Disorder: No - HEENT Hx HEENT Disorder: No - Renal Hx Renal Disorder: No - Endocrine/Metabolic Hx Endocrine Disorders: No - Hematological/Oncological Hx Blood Disorders: No - Integumentary Hx Dermatological Disorder: No - Musculoskeletal/Rheumatological Hx Musculoskeletal Disorders: No - Gastrointestinal Hx Gastrointestinal Disorders: No - Genitourinary/Gynecological Hx Genitourinary Disorders: No - Psychiatric Hx Psychophysiologic Disorder: No Hx Substance Use: No - Surgical History Hx Amputation: No Hx Appendectomy: No Hx Cardiac Catheterization: No Hx Cholecystectomy: No Hx Coronary Stent: No Hx Gastric Bypass Surgery: No Hx Hysterectomy: No Hx Joint Replacement: No Hx Kidney Transplant: No Hx Liver Transplant: No Hx Mastectomy: No Hx Musculoskeletal Surgery: No Hx Open Heart Surgery: No Hx Orthopedic Surgery: No Hx Splenectomy: No Hx Valve Replacement: No - Suicidal Assessment Feels Threatened In Home Enviroment: No Family/Social History - Physician Review Nursing Documentation Reviewed: Yes Family/Social History: Unknown Family HX Smoking Status: Current Some Days Smoker Hx Alcohol Use: No (Reports last alcohol intake 3 weeks ago) Hx Substance Use: No Hx Substance Use Treatment: No Allergies/Home Meds Allergies/Adverse Reactions: Allergies No Known Allergies Allergy (Verified 04/11/18 18:28) Review of Systems - Physician Review All systems were reviewed & negative as marked: Yes - Review of Systems Constitutional: Normal Eyes: Normal ENT: Normal Respiratory: Normal Cardiovascular: Normal Gastrointestinal: Abdominal Pain. absent: Constipation, Diarrhea, Nausea, Vomiting, Hematochezia, Hematemesis Genitourinary Male: Normal Musculoskeletal: Normal Skin: Normal Neurological: Normal Endocrine: Normal Hemo/Lymphatic: Normal Psychiatric: Normal Physical Exam Vital Signs Reviewed: Yes Vital Signs Temp Pulse Resp BP Pulse Ox 05/03/18 14:52 98.4 F 81 18 137/85 100 Temperature: Afebrile Blood Pressure: Normal Pulse: Regular Respiratory Rate: Normal Appearance: Positive for: Well-Appearing, Non-Toxic, Comfortable, Other (Jaundiced) Pain Distress: None Mental Status: Positive for: Alert and Oriented X 3 - Systems Exam Head: Present: Atraumatic, Normocephalic Pupils: Present: PERRL Extroacular Muscles: Present: EOMI Conjunctiva: Present: Icteric Mouth: Present: Moist Mucous Membranes Neck: Present: Normal Range of Motion Respiratory/Chest: Present: Clear to Auscultation, Good Air Exchange. No: Respiratory Distress, Accessory Muscle Use Cardiovascular: Present: Regular Rate and Rhythm, Normal S1, S2. No: Murmurs Abdomen: Present: Tenderness (Mild periumbilical tenderness), Distention (Ascites), Normal Bowel Sounds, Other (rigid abdomen). No: Peritoneal Signs, Rebound, Guarding, McBurney's Point Tender, Rovsing's Sign Present Back: Present: Normal Inspection Upper Extremity: Present: Normal Inspection. No: Cyanosis, Edema Lower Extremity: Present: Normal Inspection. No: Edema Neurological: Present: GCS=15, CN II-XII Intact, Speech Normal Skin: Present: Warm, Dry, Normal Color. No: Rashes Psychiatric: Present: Alert, Oriented x 3, Normal Insight, Normal Concentration Medical Decision Making ED Course and Treatment: 05/03/18 18:28 37yo male bib EMS for abdominal pain and abdominal distention x one week. Labs CXR EKG Abdominal/Pelvic CT EKG Ectopic atrial rhythm @ 90bpm. N-Stemi. CXR IMPRESSION: No active disease. Pt's abdomen is prominently distended. He have history of cirrhosis and will need Paracentesis Lab was reviewed with elevated LFT, alk phos and T. Bili. Elevated Leuk 13.4 was also noted and pt was started on Vanco and Zosyn. Blood culture pending. Pt's previous lab was reviewed from March and he had elevated T. Bili at that time also. Hepatic US was done at that time and it was negative. PT will be admitted for the paracentesis and serial lab. Case was DW Dr. Riddle and he accepted pt for admission Plan was DW the pt and he agreed. Abd/Pelvic CT pending. 05/03/18 18:41 IMPRESSION: Moderate to large abdominal and pelvic ascites. Hepatomegaly. Nodular hepatic contour. Heterogeneous hepatic parenchyma. 17 mm enhancing lesion demonstrated by hepatic triple phase study not appreciated on this noncontrast examination. Splenomegaly. Fluid again visualized surrounding the gallbladder. No calcified gallstones identified. Mesenteric adenopathy, nonspecific. - Lab Interpretations Lab Results: 05/03/18 15:53 Lab Results 05/03/18 16:19: PT 16.5 H, INR 1.44, APTT 35.5 05/03/18 15:53: pO2 55, VBG pH 7.37, VBG pCO2 47.0, VBG HCO3 27.2, VBG Total CO2 28.6 H, VBG O2 Sat (Calc) 92.0 H, VBG Base Excess 1.3, VBG Potassium 7.3 H*, Sodium 133.0, Chloride 100.0, Glucose 97, Lactate 1.9, FiO2 21.0, Venous Blood Potassium 7.3 H* 05/03/18 15:53: WBC 13.4 H D, RBC 4.00, Hgb 14.0 D, Hct 39.9 L, MCV 99.8, MCH 35.0, MCHC 35.1, RDW 15.9 H, Plt Count 277, MPV 12.7 H, Gran % 78.4 H, Lymph % (Auto) 15.0 L, [place] % (Auto) 5.5, Eos % (Auto) 1.0 L, Baso % (Auto) 0.1, Gran # 10.49 H, Lymph # (Auto) 2.0, [place] # (Auto) 0.7 H, Eos # (Auto) 0.1, Baso # (Auto) 0.02 - RAD Interpretation Radiology Orders: 05/03/18 15:09 CHEST PORTABLE [RAD] Stat 05/03/18 16:01 ABD & PELVIS W/O PO OR IV CONT [CT] Stat Disposition/Present on Arrival - Present on Arrival Any Indicators Present on Arrival: No History of DVT/PE: No History of Uncontrolled Diabetes: No Urinary Catheter: No History of Decub. Ulcer: No History Surgical Site Infection Following: None - Disposition Have Diagnosis and Disposition been Completed?: Yes Diagnosis: Alcohol abuse, Cirrhosis, Ascites, Leukocytosis, Abdominal pain Disposition: HOSPITALIZED Disposition Time: 17:20 Patient Plan: Admission Patient Problems: Current Active Problems Problem Status Onset Abdominal pain Acute Ascites Acute Leukocytosis Acute Alcohol abuse Chronic Cirrhosis Chronic Condition: FAIR
[2018-05-03 16:52] LABS: B-TYPE NATRIURETIC PEPTIDE 114 pg/mL (0-450); TROPONIN I < 0.01 ng/mL
[2018-05-03 16:53] LABS: ALB/GLOB RATIO 0.7 (1.1-1.8); ALBUMIN 3.3 g/dL (3.0-4.8); ALT/SGPT 86 U/L (7-56); AST/SGOT 175 U/L (17-59); BLOOD UREA NITROGEN 10 mg/dL (7-21); CALCIUM 8.6 mg/dL (8.4-10.5); GFR NON-AFRICAN AMERICAN > 60; LIPASE 188 U/L (23-300)
[2018-05-03] MEDS ORDERED: Piperacillin/Tazobact 3.375 gm 100 ML IVPB STA (17:21)
[2018-05-03] MEDS ORDERED: Vancomycin 1gm in NS 250ml 1 GM/250 ML BAG IVPB STA (17:22)
--- NOTE | 2018-05-03 18:08 | CP.PCM.HP ---
History of Present Illness - History of Present Illness History of Present Illness: Alton Gerard, PGY-1 History and Physical for Hospitalist Service Mr. Cooper is a 37 M with PMHx of alcohol abuse and pancreatitis presenting for 2 day history of abdominal fullness. Pressure is located in the lower abdominal area, gradual in onset, intermittent, rated 10/10 at worst, non radiating, sharp. Not associated with nausea or vomiting and has proper appetite. Patient states abdominal pain feels similar to previous episodes of pancreatitis, and denies recent ETOH use in over 3 weeks. He denies CP, SOB, headaches, fevers, chills, pruritis, back pain, urinary complaints, numbness, tingling, swelling, diarrhea, constipation, melena, weight loss/gain, recent trauma, sick contacts and travel. Patient has recent admission in 03/31, but patient denies following up with Dr. Zepeda or at outpatient health clinic for vaccines since recent discharge. PMD: Dr. Gomez PMH: alcohol abuse, pancreatitis in 07/2017, 11/2016 SH: in the past, drinks half a gallon of vodka daily for one year, one pint per day for many years before that. Smokes cigarettes 1ppd for the last 15 years. Denies drug use. Lives with a friend in [place]. Has no local family Sx: denies any history of surgeries FH: denies All: NKDA Meds: denies Present on Admission - Present on Admission Any Indicators Present on Admission: No Review of Systems - Review of Systems Review of Systems: 12 point ROS completed and negative except as described in HPI. Past Patient History - Infectious Disease Hx of Infectious Diseases: None - Past Social History Smoking Status: Current Some Days Smoker - CARDIAC Hx Cardiac Disorders: No - PULMONARY Hx Respiratory Disorders: No - NEUROLOGICAL Hx Neurological Disorder: No - HEENT Hx HEENT Problems: No - RENAL Hx Chronic Kidney Disease: No - ENDOCRINE/METABOLIC Hx Endocrine Disorders: No - HEMATOLOGICAL/ONCOLOGICAL Hx Blood Disorders: No - INTEGUMENTARY Hx Dermatological Problems: No - MUSCULOSKELETAL/RHEUMATOLOGICAL Hx Musculoskeletal Disorders: No - GASTROINTESTINAL Hx Gastrointestinal Disorders: No - GENITOURINARY/GYNECOLOGICAL Hx Genitourinary Disorders: No - PSYCHIATRIC Hx Psychophysiologic Disorder: No Hx Substance Use: No - SURGICAL HISTORY Hx Amputation: No Hx Appendectomy: No Hx Cardiac Catheterization: No Hx Cholecystectomy: No Hx Coronary Stent: No Hx Gastric Bypass Surgery: No Hx Hysterectomy: No Hx Joint Replacement: No Hx Kidney Transplant: No Hx Liver Transplant: No Hx Mastectomy: No Hx Musculoskeletal Surgery: No Hx Open Heart Surgery: No Hx Orthopedic Surgery: No Hx Splenectomy: No Hx Valve Replacement: No Meds Allergies/Adverse Reactions: Allergies Allergy/AdvReac Type Severity Reaction Status Date / Time No Known Allergies Allergy Verified 04/11/18 18:28 Physical Exam - Constitutional Appears: Non-toxic, No Acute Distress - Head Exam Head Exam: ATRAUMATIC, NORMOCEPHALIC - Eye Exam Eye Exam: EOMI, Scleral icterus Pupil Exam: PERRL - ENT Exam ENT Exam: Mucous Membranes Moist - Neck Exam Neck exam: Positive for: Normal Inspection - Respiratory Exam Respiratory Exam: Clear to Auscultation Bilateral. absent: Accessory Muscle Use, Chest Wall Tenderness - Cardiovascular Exam Cardiovascular Exam: RRR, +S1, +S2 - GI/Abdominal Exam GI & Abdominal Exam: Distended, Firm, Tenderness. absent: Guarding - Back Exam Back exam: NORMAL INSPECTION. absent: CVA tenderness (L), CVA tenderness (R) - Neurological Exam Neurological exam: Alert, Oriented x3 - Skin Skin Exam: Dry, Intact Additional comments: juandiced Results - Vital Signs Recent Vital Signs: Last Vital Signs Temp 98.4 F 05/03/18 16:38 Pulse 83 05/03/18 16:38 Resp 19 05/03/18 16:38 BP 118/85 05/03/18 16:38 Pulse Ox 98 05/03/18 16:38 - Labs Result Diagrams: 05/03/18 15:53 05/03/18 16:19 Labs: Laboratory Results - last 24 hr 05/03/18 05/03/18 05/03/18 15:53 15:53 16:19 WBC 13.4 H D RBC 4.00 Hgb 14.0 D Hct 39.9 L MCV 99.8 MCH 35.0 MCHC 35.1 RDW 15.9 H Plt Count 277 MPV 12.7 H Gran % 78.4 H Lymph % (Auto) 15.0 L [place] % (Auto) 5.5 Eos % (Auto) 1.0 L Baso % (Auto) 0.1 Gran # 10.49 H Lymph # (Auto) 2.0 [place] # (Auto) 0.7 H Eos # (Auto) 0.1 Baso # (Auto) 0.02 PT INR APTT pO2 55 VBG pH 7.37 VBG pCO2 47.0 VBG HCO3 27.2 VBG Total CO2 28.6 H VBG O2 Sat (Calc) 92.0 H VBG Base Excess 1.3 VBG Potassium 7.3 H* Sodium 133.0 136 Chloride 100.0 103 Glucose 97 Lactate 1.9 FiO2 21.0 Potassium 4.0 Carbon Dioxide 22 Anion Gap 15 BUN 10 Creatinine 0.6 L Est GFR ( Amer) > 60 Est GFR (Non-Af Amer) > 60 Random Glucose 99 Calcium 8.6 Magnesium 1.9 Total Bilirubin 20.0 H* AST 175 H ALT 86 H Alkaline Phosphatase 546 H Lactate Dehydrogenase 389 Total Creatine Kinase 31 L Troponin I < 0.01 NT-Pro-B Natriuret Pep 114 Total Protein 7.8 Albumin 3.3 Globulin 4.5 Albumin/Globulin Ratio 0.7 L Lipase 188 Venous Blood Potassium 7.3 H* 05/03/18 16:19 WBC RBC Hgb Hct MCV MCH MCHC RDW Plt Count MPV Gran % Lymph % (Auto) [place] % (Auto) Eos % (Auto) Baso % (Auto) Gran # Lymph # (Auto) [place] # (Auto) Eos # (Auto) Baso # (Auto) PT 16.5 H INR 1.44 APTT 35.5 pO2 VBG pH VBG pCO2 VBG HCO3 VBG Total CO2 VBG O2 Sat (Calc) VBG Base Excess VBG Potassium Sodium Chloride Glucose Lactate FiO2 Potassium Carbon Dioxide Anion Gap BUN Creatinine Est GFR ( Amer) Est GFR (Non-Af Amer) Random Glucose Calcium Magnesium Total Bilirubin AST ALT Alkaline Phosphatase Lactate Dehydrogenase Total Creatine Kinase Troponin I NT-Pro-B Natriuret Pep Total Protein Albumin Globulin Albumin/Globulin Ratio Lipase Venous Blood Potassium Assessment & Plan - Assessment and Plan (Free Text) Assessment: 37 -year-old male with PMH of acute pancreatitis and alcohol abuse presented to ED with worsening lower abdominal distension. Abdominal distension r/o SBP Leukocytosis 13.4, recent paracentesis on previous admission Ceftriaxone 1 gm to start tmrw, Zosyn received in ED monitor for fevers and systemic signs of infection Tense Abdominal Ascites Reports last ETOH 3 weeks ago Tbili 20.0, PLT 277, Lipase 188 AST/ALT 175/86 Aldactone 25 mg PO, Lasix 40 IVP, Lactulose 10 stat Aldactone 25 PO BID, Lasix 40 mg IVP daily, Lactulose 20 mg PO monitor urine output and symptom improvement f/u UA, UDS and serum ETOH f/u AM labs Hi protein diet MELD score 23, indicating 19.6% estimated 3 month mortality GI consult - Dr. Zepeda - recommendations appreciated Constipation No BM for 6 days Lactulose continue to monitor DVT ppx Lovenox 40 daily Patient seen, case reviewed and plan approved by Dr. Riddle. Alton Gerard, PGY-1
[2018-05-03 18:23] LABS: URINE BILIRUBIN LARGE (NEGATIVE); URINE BLOOD NEGATIVE (NEGATIVE); URINE GLUCOSE (UA) 100 mg/dL (NEGATIVE); URINE LEUKOCYTE ESTERASE NEGATIVE Leu/uL (NEGATIVE); URINE PROTEIN TRACE mg/dL (<30 mg/dL)
[2018-05-03 18:24] LABS: URINE APPEARANCE TURBID (CLEAR); URINE COLOR YELLOW (YELLOW)
[2018-05-03 18:27] LABS: URINE BACTERIA TRACE (NEG); URINE HYALINE CAST 0 - 2 /hpf; URINE RBC NEGATIVE /hpf (0-2); URINE WBC 0 - 2 /hpf (0-6)
[2018-05-03 18:28] LABS: URINE COARSE GRANULAR CAST TRACE /hpf (0-2)
--- NOTE | 2018-05-03 18:39 | CT ---
PROCEDURE: CT Abdomen and Pelvis without Oral or IV contrast. HISTORY: abdominal pain/ascities COMPARISON: Liver triple phase CT performed 04/13/18 TECHNIQUE: Contiguous axial images of the abdomen and pelvis. No oral or IV contrast administered. Coronal and Sagittal reformats generated and reviewed. Radiation dose: Total exam DLP = 899.59 mGy-cm. This CT exam was performed using one or more of the following dose reduction techniques: Automated exposure control, adjustment of the mA and/or kV according to patient size, and/or use of iterative reconstruction technique. FINDINGS: There is limited evaluation of the solid organs without the administration of IV contrast. LOWER THORAX: Mild right greater than left basilar atelectasis. Trace left pleural effusion. No visible pneumothorax. LIVER: Hepatomegaly. Nodular hepatic contour. Heterogeneous hepatic parenchyma. 17 mm enhancing lesion demonstrated by hepatic triple phase study not appreciated on this noncontrast examination. GALLBLADDER AND BILE DUCTS: Fluid is again seen around gallbladder. Otherwise unremarkable unenhanced appearance. PANCREAS: Unremarkable unenhanced appearance. SPLEEN: Splenomegaly. ADRENALS: Unremarkable unenhanced appearance. KIDNEYS AND URETERS: No hydronephrosis or obstructing renal calculus. BLADDER: The urinary bladder appears unremarkable. REPRODUCTIVE: Unremarkable. APPENDIX: The appendix appears within normal limits of caliber. No secondary signs of acute appendicitis. BOWEL: The stomach is nondistended. Lack of oral contrast limits evaluation for bowel pathology. The bowel loops appear within normal limits of caliber without evidence of intestinal obstruction. PERITONEUM: Moderate to large abdominal and pelvic ascites. No definite free air. LYMPH NODES: Mesenteric adenopathy, nonspecific. VASCULATURE: Atherosclerotic calcifications of the aorta. No aortic aneurysm. Cannot adequately assessed due to lack of IV contrast. BONES: Deformity involving the posterior left ribs, likely related to remote injury. Correlate clinically. OTHER FINDINGS: [id number]-right fat containing inguinal hernia. IMPRESSION: Moderate to large abdominal and pelvic ascites. Hepatomegaly. Nodular hepatic contour. Heterogeneous hepatic parenchyma. 17 mm enhancing lesion demonstrated by hepatic triple phase study not appreciated on this noncontrast examination. Splenomegaly. Fluid again visualized surrounding the gallbladder. No calcified gallstones identified. Mesenteric adenopathy, nonspecific. Additional findings as above.
[2018-05-03 20:46] LABS: BARBITURATES, UR NEGATIVE (NEGATIVE); BENZODIAZEPINES, UR NEGATIVE (NEGATIVE); OPIATES, UR POSITIVE (NEGATIVE); PHENCYCLIDINE, UR NEGATIVE (NEGATIVE)
[2018-05-04 07:31] LABS: BASO # 0.01 K/mm3 (0.0-2.0); BASO % 0.1 % (0.0-3.0); EOS # 0.1 (0.0-0.7); EOS % 0.7 % (1.5-5.0); GRAN # 9.39 (1.4-6.5); GRAN % 79.2 % (50.0-68.0); LYMPH # 1.7 (1.2-3.4); LYMPH % 14.3 % (22.0-35.0); MEAN CELL VOLUME 99.1 fl (80.0-105.0); MEAN CORPUSCULAR HEMOGLOBIN 33.7 pg (25.0-35.0); MEAN PLATELET VOLUME 11.7 fl (7.0-11.0); MONO # 0.7 (0.1-0.6); MONO % 5.7 % (1.0-6.0); RBC 3.44 10^6/uL (3.5-6.1); RED CELL DISTRIBUTION WIDTH 15.8 % (11.5-14.5); WHITE BLOOD COUNT 11.9 10^3/uL (4.5-11.0)
[2018-05-04 07:35] LABS: HEMOGLOBIN 11.6 g/dL (14.0-18.0)
[2018-05-04 07:52] LABS: ALB/GLOB RATIO 0.7 (1.1-1.8); ALT/SGPT 84 U/L (7-56); AST/SGOT 171 U/L (17-59); BLOOD UREA NITROGEN 13 mg/dL (7-21); CALCIUM 8.6 mg/dL (8.4-10.5); GFR NON-AFRICAN AMERICAN > 60
--- NOTE | 2018-05-04 08:13 | CARD ---
APPROVED REPORT Date of service: 05/03/2018 EKG Measurement Heart [id number] [place] [id number]-76 [id number] <Conclusion> Unusual P axis, possible ectopic atrial rhythm PRWP NSSTW changes Prolonged QTc
--- NOTE | 2018-05-04 08:49 | CP.PCM.PN ---
Subjective - Date & Time of Evaluation Date of Evaluation: 05/04/18 Time of Evaluation: 08:00 - Subjective Subjective: Alton Gerard, PGY-1 Progress Note for Hospitalist Service Patient seen and evaluated at bedside. Reports no acute events overnight. Repo rts frequent urination but no perceived decrease in abdominal distension. Denies chest pain, SOB, palpitations, confusion, leg pain. Objective - Vital Signs/Intake and Output Vital Signs (last 24 hours): Temp Pulse Resp BP Pulse Ox 98.4 F 62 20 122/84 98 05/04/18 06:00 05/04/18 06:00 05/04/18 06:00 05/04/18 06:00 05/04/18 06:00 - Medications Medications: Current Medications Enoxaparin Sodium (Lovenox) 40 mg SC DAILY FÉLIX; Protocol Furosemide (Lasix) 40 mg IVP DAILY FÉLIX Ceftriaxone Sodium (Rocephin 1 Gram Ivpb) 1 gm in 100 mls @ 100 mls/hr IVPB DAILY FÉLIX; Protocol Ibuprofen (Motrin Tab) 600 mg PO Q6H PRN PRN Reason: Pain, moderate (4-7) Last Admin: 05/03/18 22:04 Dose: 600 mg Lactulose (Enulose) 20 gm PO HS FÉLIX Spironolactone (Aldactone) 25 mg PO BID FÉLIX - Labs Labs: 05/04/18 07:00 05/04/18 07:00 PT 16.5 SECONDS (9.4-12.5) H 05/03/18 16:19 INR 1.44 05/03/18 16:19 APTT 35.5 Seconds (25.1-36.5) 05/03/18 16:19 - Additional Findings Additional findings: - Constitutional Appears: Non-toxic, No Acute Distress - Head Exam Head Exam: ATRAUMATIC, NORMOCEPHALIC - Eye Exam Eye Exam: EOMI, Scleral icterus Pupil Exam: PERRL - ENT Exam ENT Exam: Mucous Membranes Moist - Neck Exam Neck exam: Positive for: Normal Inspection - Respiratory Exam Respiratory Exam: Clear to Auscultation Bilateral. absent: Accessory Muscle Use, Chest Wall Tenderness - Cardiovascular Exam Cardiovascular Exam: RRR, +S1, +S2 - GI/Abdominal Exam GI & Abdominal Exam: Distended, Firm, Tenderness. absent: Guarding - Back Exam Back exam: NORMAL INSPECTION. absent: CVA tenderness (L), CVA tenderness (R) - Neurological Exam Neurological exam: Alert, Oriented x3 - Skin Skin Exam: Dry, Intact Additional comments: ramona Assessment and Plan - Assessment and Plan (Free Text) Assessment: Assessment and Plan: 37 year-old male with PMHx of acute pancreatitis and alcohol abuse who presents with worsening lower abdominal distension, likely secondary to abdominal ascites 2/2 cirrhosis 2/2 chronic ETOH consumption. No asterixis but + abdominal fluid wave. Abdominal distension r/o SBP Leukocytosis 13.4 on admission, recent paracentesis on previous admission. Improving to 11.[address]: Moderate to large abdominal and pelvic ascites. Hepatomegaly. Nodular hepatic contour. Heterogeneous hepatic parenchyma. 17 mm enhancing lesion demonstrated by hepatic triple phase study not appreciated on this nonco ntrast examination. Splenomegaly. Fluid again visualized surrounding the gallbladder. No calcified gallstones identified. Mesenteric adenopathy, nonspecific. Ceftriaxone 1 gm daily, Zosyn received in ED monitor for fevers and systemic signs of infection IR consulted - Dr. Huitron- f/u diagnostic and therapeutic paracentesis along with peritoneal fluid studies Tense Abdominal Ascites 2/2 Cirrhosis 2/2 ETOH alpha- protein normal (2.5) on lab 03/31 Reports last ETOH 3 weeks ago Tbili 20.0, improved to 19.4 today PLT 277, Lipase 188 AST/ALT 175/86 Aldactone 25 mg PO, Lasix 40 IVP, Lactulose 10 GIVEN IN ED Aldactone increased to 50 PO TID per GI Lasix 40 mg IVP daily, Lactulose 20 mg PO monitor urine output and symptom improvement UA shows glucose and trace proteins and ketones, large amounts of urine bili UDS + opioids and cannabinoids serum ETOH < 10 f/u AM labs Hi protein diet MELD score 23, indicating 19.6% estimated 3 month mortality Maddrey's Discriminant Function - score of 45.8, pointing to possible benefit from glucocorticoids GI consult - Dr. Cruz- recommendations appreciated Constipation Lactulose continue to monitor DVT ppx Lovenox 40 SC daily Patient seen, case reviewed and plan approved by Dr. Riddle. Alton Gerard, PGY-1
[2018-05-04] MEDS: cefTRIAXone 1 gm 1 GM/100 ML BAG IVPB SCH (10:00)
[2018-05-04] MEDS: Enoxaparin 40 mg Syringe SC SCH (10:00)
--- NOTE | 2018-05-04 14:00 | PCM.SURG1 ---
Surgeon's Initial Post Op Note - Surgeon's Notes Surgeon: Marcus Law MD Food Service Ambassador: NONE Type of Anesthesia: Local Pre-Operative Diagnosis: Cirrhosis, jaundice, ascites Operative Findings: US showed large amount of ascites Post-Operative Diagnosis: Cirrhosis, ascites Operation Performed: US guided paracentesis Specimen/Specimens Removed: 6.8 Liters of yellow fluid Estimated Blood Loss: EBL {In ML}: 0 Blood Products Given: N/A Drains Used: No Drains Post-Op Condition: Fair Date of Surgery/Procedure: 05/04/18 Time of Surgery/Procedure: 12:20
--- NOTE | 2018-05-04 15:56 | US ---
Date of Procedure: PROCEDURE: Ultrasound-guided paracentesis, CPT 22251 Medications: 7 cc 1% Lidocaine HISTORY: Ascites, abdominal pain, cirrhosis TECHNIQUE: Following informed consent , the patient was placed supine on the stretcher and the site was marked. A limited abdominal ultrasound was performed that showed a large amount of intra-abdominal fluid. Procedural time out was called and the Pt's abdomen was marked and prepped and draped in the usual sterile fashion. Ultrasound-guided large volume paracentesis performed. A total of 6.8 Liters of yellow colored fluid was removed without complication. IMPRESSION: Ultrasound-guided large volume paracentesis.
--- NOTE | 2018-05-04 18:47 | CON ---
DATE: 05/04/2018 REQUESTING PHYSICIAN: Dr. Kelly. REASON FOR CONSULTATION: I have been asked to see this 37-year-old male, alcoholic, with a history of cirrhosis of the liver, 17 mm enhancing lesion in the inferior aspect of the liver, history of ascites requiring paracentesis several weeks ago, history of pancreatitis secondary to alcohol abuse, who comes to the hospital with increased abdominal distention and pressure. He denies any fevers, chills, nausea, vomiting, abdominal pain. His last drink was [address] scan of the abdomen and pelvis without any contrast this admission reveals a moderate amount of ascites, hepatomegaly, cirrhotic-appearing liver. He had a paracentesis this morning with removal of several liters of ascitic fluid and states that he feels much better. The patient was started on steroids last admission for an elevated MELD score and Maddrey score. It is unclear if he was taking the medications at home. PAST MEDICAL HISTORY: Notable for alcoholism, alcohol-induced cirrhosis of the liver, pancreatitis. SOCIAL HISTORY: The patient drinks up to half gallon of vodka daily. His last drink was 3 weeks ago. He smokes up to a pack of cigarettes per day. FAMILY HISTORY: Noncontributory. PHYSICAL EXAMINATION: GENERAL: Jaundiced male, lying in bed, in no acute distress. VITAL SIGNS: Reveal temperature of 98.4, blood pressure 122/84, heart rate of 62. HEENT: Reveals sclerae to be icteric. Conjunctivae pink. NECK: Supple. CHEST: Reveals distant breath sounds. HEART: Exam reveals regular rate and rhythm. ABDOMEN: Distended with ascites, soft, nontender. EXTREMITIES: Show no edema. There is no asterixis. LABORATORY DATA: Revealed white blood cell count 11.9, hemoglobin 11.6, platelet count 244,000. Coags revealed PT of 16.5, INR of 1.44. Chemistries revealed total bilirubin of 19.4, AST 171, ALT 85, alkaline phosphatase 485. IMPRESSION: End-stage liver disease secondary to alcohol-induced cirrhosis with ascites. The patient did have a large-volume paracentesis this morning with removal of several liters of fluid. His MELD score-NA is 23. At this time, there are no signs of bleeding. Due to his recent alcohol use, he is not a candidate for liver transplant at this time. He does have a 17 mm enhancing lesion on CT scan performed 3 weeks ago. A non-contrast study did not reveal the lesion. This may be a regenerative nodule. His alpha-fetoprotein on last admission was normal. This will need to be followed up. RECOMMENDATIONS: 1. We would continue Aldactone, but increase to 50 mg three times a day. 2. The patient needs to be evaluated at a tertiary liver center. He can be seen at [facility] for management of his end-stage cirrhosis as well as followup of the liver lesion. No further workup is planned at this time. Ga Cruz MD
[2018-05-05 07:01] LABS: BASO # 0.01 K/mm3 (0.0-2.0); BASO % 0.1 % (0.0-3.0); EOS # 0.1 (0.0-0.7); EOS % 1.1 % (1.5-5.0); GRAN # 8.83 (1.4-6.5); GRAN % 78.3 % (50.0-68.0); HEMOGLOBIN 11.8 g/dL (14.0-18.0); LYMPH # 1.6 (1.2-3.4); LYMPH % 14.4 % (22.0-35.0); MEAN CELL VOLUME 98.6 fl (80.0-105.0); MEAN CORPUSCULAR HEMOGLOBIN 33.2 pg (25.0-35.0); MEAN CORPUSCULAR HGB CONC 33.7 g/dl (31.0-37.0); MONO # 0.7 (0.1-0.6); MONO % 6.1 % (1.0-6.0); RBC 3.55 10^6/uL (3.5-6.1); RED CELL DISTRIBUTION WIDTH 15.8 % (11.5-14.5); WHITE BLOOD COUNT 11.3 10^3/uL (4.5-11.0)
[2018-05-05 07:20] LABS: ALT/SGPT 75 U/L (7-56); AST/SGOT 149 U/L (17-59); BLOOD UREA NITROGEN 13 mg/dL (7-21); CALCIUM 8.7 mg/dL (8.4-10.5); GFR NON-AFRICAN AMERICAN > 60
[2018-05-05 07:29] LABS: ALB/GLOB RATIO 0.7 (1.1-1.8)
[2018-05-05 07:54] VITALS: BP 104/76; PULSE 76; RESP 20; TEMP 98; O2SAT 97
[2018-05-05] MEDS: Enoxaparin 40 mg Syringe SC SCH (09:29)
[2018-05-05] MEDS: cefTRIAXone 1 gm 1 GM/100 ML BAG IVPB SCH (09:29)
--- NOTE | 2018-05-05 10:14 | CP.PCM.DIS ---
<RosscamilleAlton murphy - Last Filed: 05/05/18 14:38> Provider - Provider Date of Admission: 05/03/18 17:19 Attending physician: Kingsley Larson MD Primary care physician: Gil Gomez MD Phd Consults: NIRMALA CONNORS - Dr. Cruz Time Spent in preparation of Discharge (in minutes): 35 Hospital Course - Lab Results Lab Results: Most Recent Lab Values WBC 11.3 10^3/uL (4.5-11.0) H 05/05/18 05:30 RBC 3.55 10^6/uL (3.5-6.1) 05/05/18 05:30 Hgb 11.8 g/dL (14.0-18.0) L 05/05/18 05:30 Hct 35.0 % (42.0-52.0) L 05/05/18 05:30 MCV 98.6 fl (80.0-105.0) 05/05/18 05:30 MCH 33.2 pg (25.0-35.0) 05/05/18 05:30 MCHC 33.7 g/dl (31.0-37.0) 05/05/18 05:30 RDW 15.8 % (11.5-14.5) H 05/05/18 05:30 Plt Count 214 10^3/uL (120.0-450.0) 05/05/18 05:30 MPV 12.0 fl (7.0-11.0) H 05/05/18 05:30 Gran % 78.3 % (50.0-68.0) H 05/05/18 05:30 Lymph % (Auto) 14.4 % (22.0-35.0) L 05/05/18 05:30 [place] % (Auto) 6.1 % (1.0-6.0) H 05/05/18 05:30 Eos % (Auto) 1.1 % (1.5-5.0) L 05/05/18 05:30 Baso % (Auto) 0.1 % (0.0-3.0) 05/05/18 05:30 Gran # 8.83 (1.4-6.5) H 05/05/18 05:30 Lymph # (Auto) 1.6 (1.2-3.4) 05/05/18 05:30 [place] # (Auto) 0.7 (0.1-0.6) H 05/05/18 05:30 Eos # (Auto) 0.1 (0.0-0.7) 05/05/18 05:30 Baso # (Auto) 0.01 K/mm3 (0.0-2.0) 05/05/18 05:30 PT 16.5 SECONDS (9.4-12.5) H 05/03/18 16:19 INR 1.44 05/03/18 16:19 APTT 35.5 Seconds (25.1-36.5) 05/03/18 16:19 pO2 55 mm/Hg (30-55) 05/03/18 15:53 VBG pH 7.37 (7.32-7.43) 05/03/18 15:53 VBG pCO2 47.0 (40-60) 05/03/18 15:53 VBG HCO3 27.2 mmol/l (21-28) 05/03/18 15:53 VBG Total CO2 28.6 mmol.L (22-28) H 05/03/18 15:53 VBG O2 Sat (Calc) 92.0 % (40-65) H 05/03/18 15:53 VBG Base Excess 1.3 mmol/L (0.0-2.0) 05/03/18 15:53 VBG Potassium 7.3 mmol/L (3.6-5.2) H* 05/03/18 15:53 Sodium 133.0 mmol/L (132-148) 05/03/18 15:53 Chloride 100.0 mmol/L (98-107) 05/03/18 15:53 Glucose 97 mg/dl (75-110) 05/03/18 15:53 Lactate 1.9 mmol/L (0.7-2.1) 05/03/18 15:53 FiO2 21.0 % 05/03/18 15:53 Sodium 135 mmol/L (132-148) 05/05/18 05:30 Potassium 4.2 mmol/L (3.6-5.0) 05/05/18 05:30 Chloride 102 mmol/L (98-107) 05/05/18 05:30 Carbon Dioxide 26 mmol/L (21-33) 05/05/18 05:30 Anion Gap 11 (10-20) 05/05/18 05:30 BUN 13 mg/dL (7-21) 05/05/18 05:30 Creatinine 0.6 mg/dl (0.8-1.5) L 05/05/18 05:30 Est GFR ( Amer) > 60 05/05/18 05:30 Est GFR (Non-Af Amer) > 60 05/05/18 05:30 Random Glucose 113 mg/dL (70-110) H 05/05/18 05:30 Calcium 8.7 mg/dL (8.4-10.5) 05/05/18 05:30 Phosphorus 3.5 mg/dL (2.5-4.5) 05/03/18 20:49 Magnesium 1.9 mg/dL (1.7-2.2) 05/03/18 20:49 Total Bilirubin 17.4 mg/dL (0.2-1.3) H 05/05/18 05:30 AST 149 U/L (17-59) H 05/05/18 05:30 ALT 75 U/L (7-56) H 05/05/18 05:30 Alkaline Phosphatase 532 U/L (38-126) H 05/05/18 05:30 Lactate Dehydrogenase 389 U/L (333-699) 05/03/18 16:19 Total Creatine Kinase 31 U/L (35-230) L 05/03/18 16:19 Troponin I < 0.01 ng/mL 05/03/18 16:19 NT-Pro-B Natriuret Pep 114 pg/mL (0-450) 05/03/18 16:19 Total Protein 7.2 g/dL (5.8-8.3) 05/05/18 05:30 Albumin 3.0 g/dL (3.0-4.8) 05/05/18 05:30 Globulin 4.3 gm/dL 05/05/18 05:30 Albumin/Globulin Ratio 0.7 (1.1-1.8) L 05/05/18 05:30 Lipase 188 U/L (23-300) 05/03/18 16:19 Venous Blood Potassium 7.3 mmol/L (3.6-5.2) H* 05/03/18 15:53 Urine Color Yellow (YELLOW) 05/03/18 18:12 Urine Appearance Turbid (CLEAR) 05/03/18 18:12 Urine pH 6.0 (4.7-8.0) 05/03/18 18:12 Ur Specific [place] 1.025 (1.005-1.035) 05/03/18 18:12 Urine Protein Trace mg/dL (<30 mg/dL) H 05/03/18 18:12 Urine Glucose (UA) 100 mg/dL (NEGATIVE) H 05/03/18 18:12 Urine Ketones Trace mg/dL (NEGATIVE) H 05/03/18 18:12 Urine Blood Negative (NEGATIVE) 05/03/18 18:12 Urine Nitrate Negative (NEGATIVE) 05/03/18 18:12 Urine Bilirubin Large (NEGATIVE) H 05/03/18 18:12 Urine Urobilinogen 1.0 E.U./dL (<1 E.U./dL) H 05/03/18 18:12 Ur Leukocyte Esterase Negative Sara/uL (NEGATIVE) 05/03/18 18:12 Urine RBC Negative /hpf (0-2) 05/03/18 18:12 Urine WBC 0 - 2 /hpf (0-6) 05/03/18 18:12 Urine Bacteria Trace (NEG) 05/03/18 18:12 Hyaline Casts 0 - 2 /hpf 05/03/18 18:12 Coarse Granular Casts Trace /hpf (0-2) 05/03/18 18:12 Urine Opiates Screen Positive (NEGATIVE) H 05/03/18 20:14 Urine Methadone Screen Negative (NEGATIVE) 05/03/18 20:14 Ur Barbiturates Screen Negative (NEGATIVE) 05/03/18 20:14 Ur Phencyclidine Scrn Negative (NEGATIVE) 05/03/18 20:14 Ur Amphetamines Screen Negative (NEGATIVE) 05/03/18 20:14 U Benzodiazepines Scrn Negative (NEGATIVE) 05/03/18 20:14 U Oth Cocaine Metabols Negative (NEGATIVE) 05/03/18 20:14 U Cannabinoids Screen Positive (NEGATIVE) H 05/03/18 20:14 Alcohol, Quantitative < 10 mg/dL (0-10) 05/03/18 18:55 - Hospital Course Hospital Course: Alton Gerard, PGY-1 Discharge Summary for Hospitalist Service Mr. Hryniuk is a 37 year old male with PMH of acute pancreatitis and alcohol abuse who presented with worsening lower abdominal pain. He was found to have significant ascites surrounding the liver and changes c/w cirrhosis on CTAP. He had scleral icterus and appeared diffusely jaundiced on exam. He was subsequently admitted for further management of abdominal pain and ascites. GI and IR was consulted. IR was consulted for U/S guided paracentesis. 6.8 L of fluid were removed. Peritoneal fluid analysis was pending. For his distension, he was started on Lactulose, Aldactone and Lasix 40 IVP. Initial Maddrey score was 45 on admission. MELD score was 23, indicating almost 20% estimated [address] Cruz (GI) recommended increasing Aldactone to 50 mg TID. This morning, he is tolerating regular diet well and feels ready to go home. Patient's abdominal distension is greatly improved and patient reports relief. He was instructed to follow up with Dr. Cruz within 1 week for continued management. The importance of alcohol abstinence was emphasized with patient. We explained that patient must be ETOH free for 6 months to be considered for transplant list. We also instructed him to follow up at [facility] tertiary care GI clinic at [facility] in [place] as well as with his PCP. Patient seen, case reviewed and plan approved by Dr. Larson. Discharge Exam - Additional Findings Additional findings: - Constitutional Appears: Non-toxic, No Acute Distress - Head Exam Head Exam: ATRAUMATIC, NORMOCEPHALIC - Eye Exam Eye Exam: EOMI, Scleral icterus Pupil Exam: PERRL - ENT Exam ENT Exam: Mucous Membranes Moist - Neck Exam Neck exam: Positive for: Normal Inspection - Respiratory Exam Respiratory Exam: Clear to Auscultation Bilateral. absent: Accessory Muscle Use, Chest Wall Tenderness - Cardiovascular Exam Cardiovascular Exam: RRR, +S1, +S2 - GI/Abdominal Exam GI & Abdominal Exam: Improved, Distended. absent: Guarding, Tenderness, Firm - Back Exam Back exam: NORMAL INSPECTION. absent: CVA tenderness (L), CVA tenderness (R) - Neurological Exam Neurological exam: Alert, Oriented x3 - Skin Skin Exam: Dry, Intact Additional comments: juandiced Discharge Plan - Discharge Medications Prescriptions: Furosemide [Lasix] 40 mg PO DAILY #30 tab Lactulose [Enulose] 20 gm PO HS #30 udc Spironolactone [Aldactone] 50 mg PO TID #90 tab - Follow Up Plan Condition: FAIR Disposition: HOME/ ROUTINE Instructions: Alcohol Use - When Is Drinking a Problem?, Abdominal Paracentesis, Fluid in the Belly (Ascites), Alcohol Abuse and Alcoholism (DC) Additional Instructions: Abstain from tobacco and alcohol is strongly advised. You must abstain from drinking alcohol for at least six months to be a candidate for liver transplant. Obtain abdominal US with arterial and venous doppler every 6 months to monitor your liver. Follow up with your primary care doctor within one week. You need Hepatitis A and B vaccines if you have not received them upon most recent discharge from the hospital. Please follow up within 7 days in GI clinic with Dr. Cruz. To make an appointment call . You must follow up at tertiary care liver center at [facility] liver clinic for cirrhosis management and liver transplant evaluation. We will follow up with you regarding possible cytology and cultures of peritoneal fluid from paracentesis. Return to nearest ER for any reoccurence or worsening of symptoms. Referrals: Gil Gomez MD, PhD [Primary Care Provider] - <Kingsley Larson - Last Filed: 05/05/18 15:05> Provider - Provider Date of Admission: 05/03/18 17:19 Attending physician: Kingsley Larson MD Primary care physician: Gil Gomez MD Phd Hospital Course - Lab Results Lab Results: Most Recent Lab Values WBC 11.3 10^3/uL (4.5-11.0) H 05/05/18 05:30 RBC 3.55 10^6/uL (3.5-6.1) 05/05/18 05:30 Hgb 11.8 g/dL (14.0-18.0) L 05/05/18 05:30 Hct 35.0 % (42.0-52.0) L 05/05/18 05:30 MCV 98.6 fl (80.0-105.0) 05/05/18 05:30 MCH 33.2 pg (25.0-35.0) 05/05/18 05:30 MCHC 33.7 g/dl (31.0-37.0) 05/05/18 05:30 RDW 15.8 % (11.5-14.5) H 05/05/18 05:30 Plt Count 214 10^3/uL (120.0-450.0) 05/05/18 05:30 MPV 12.0 fl (7.0-11.0) H 05/05/18 05:30 Gran % 78.3 % (50.0-68.0) H 05/05/18 05:30 Lymph % (Auto) 14.4 % (22.0-35.0) L 05/05/18 05:30 Winston % (Auto) 6.1 % (1.0-6.0) H 05/05/18 05:30 Eos % (Auto) 1.1 % (1.5-5.0) L 05/05/18 05:30 Baso % (Auto) 0.1 % (0.0-3.0) 05/05/18 05:30 Gran # 8.83 (1.4-6.5) H 05/05/18 05:30 Lymph # (Auto) 1.6 (1.2-3.4) 05/05/18 05:30 [place] # (Auto) 0.7 (0.1-0.6) H 05/05/18 05:30 Eos # (Auto) 0.1 (0.0-0.7) 05/05/18 05:30 Baso # (Auto) 0.01 K/mm3 (0.0-2.0) 05/05/18 05:30 PT 16.5 SECONDS (9.4-12.5) H 05/03/18 16:19 INR 1.44 05/03/18 16:19 APTT 35.5 Seconds (25.1-36.5) 05/03/18 16:19 pO2 55 mm/Hg (30-55) 05/03/18 15:53 VBG pH 7.37 (7.32-7.43) 05/03/18 15:53 VBG pCO2 47.0 (40-60) 05/03/18 15:53 VBG HCO3 27.2 mmol/l (21-28) 05/03/18 15:53 VBG Total CO2 28.6 mmol.L (22-28) H 05/03/18 15:53 VBG O2 Sat (Calc) 92.0 % (40-65) H 05/03/18 15:53 VBG Base Excess 1.3 mmol/L (0.0-2.0) 05/03/18 15:53 VBG Potassium 7.3 mmol/L (3.6-5.2) H* 05/03/18 15:53 Sodium 133.0 mmol/L (132-148) 05/03/18 15:53 Chloride 100.0 mmol/L (98-107) 05/03/18 15:53 Glucose 97 mg/dl (75-110) 05/03/18 15:53 Lactate 1.9 mmol/L (0.7-2.1) 05/03/18 15:53 FiO2 21.0 % 05/03/18 15:53 Sodium 135 mmol/L (132-148) 05/05/18 05:30 Potassium 4.2 mmol/L (3.6-5.0) 05/05/18 05:30 Chloride 102 mmol/L (98-107) 05/05/18 05:30 Carbon Dioxide 26 mmol/L (21-33) 05/05/18 05:30 Anion Gap 11 (10-20) 05/05/18 05:30 BUN 13 mg/dL (7-21) 05/05/18 05:30 Creatinine 0.6 mg/dl (0.8-1.5) L 05/05/18 05:30 Est GFR ( Amer) > 60 05/05/18 05:30 Est GFR (Non-Af Amer) > 60 05/05/18 05:30 Random Glucose 113 mg/dL (70-110) H 05/05/18 05:30 Calcium 8.7 mg/dL (8.4-10.5) 05/05/18 05:30 Phosphorus 3.5 mg/dL (2.5-4.5) 05/03/18 20:49 Magnesium 1.9 mg/dL (1.7-2.2) 05/03/18 20:49 Total Bilirubin 17.4 mg/dL (0.2-1.3) H 05/05/18 05:30 AST 149 U/L (17-59) H 05/05/18 05:30 ALT 75 U/L (7-56) H 05/05/18 05:30 Alkaline Phosphatase 532 U/L (38-126) H 05/05/18 05:30 Lactate Dehydrogenase 389 U/L (333-699) 05/03/18 16:19 Total Creatine Kinase 31 U/L (35-230) L 05/03/18 16:19 Troponin I < 0.01 ng/mL 05/03/18 16:19 NT-Pro-B Natriuret Pep 114 pg/mL (0-450) 05/03/18 16:19 Total Protein 7.2 g/dL (5.8-8.3) 05/05/18 05:30 Albumin 3.0 g/dL (3.0-4.8) 05/05/18 05:30 Globulin 4.3 gm/dL 05/05/18 05:30 Albumin/Globulin Ratio 0.7 (1.1-1.8) L 05/05/18 05:30 Lipase 188 U/L (23-300) 05/03/18 16:19 Venous Blood Potassium 7.3 mmol/L (3.6-5.2) H* 05/03/18 15:53 Urine Color Yellow (YELLOW) 05/03/18 18:12 Urine Appearance Turbid (CLEAR) 05/03/18 18:12 Urine pH 6.0 (4.7-8.0) 05/03/18 18:12 Ur Specific [place] 1.025 (1.005-1.035) 05/03/18 18:12 Urine Protein Trace mg/dL (<30 mg/dL) H 05/03/18 18:12 Urine Glucose (UA) 100 mg/dL (NEGATIVE) H 05/03/18 18:12 Urine Ketones Trace mg/dL (NEGATIVE) H 05/03/18 18:12 Urine Blood Negative (NEGATIVE) 05/03/18 18:12 Urine Nitrate Negative (NEGATIVE) 05/03/18 18:12 Urine Bilirubin Large (NEGATIVE) H 05/03/18 18:12 Urine Urobilinogen 1.0 E.U./dL (<1 E.U./dL) H 05/03/18 18:12 Ur Leukocyte Esterase Negative Sara/uL (NEGATIVE) 05/03/18 18:12 Urine RBC Negative /hpf (0-2) 05/03/18 18:12 Urine WBC 0 - 2 /hpf (0-6) 05/03/18 18:12 Urine Bacteria Trace (NEG) 05/03/18 18:12 Hyaline Casts 0 - 2 /hpf 05/03/18 18:12 Coarse Granular Casts Trace /hpf (0-2) 05/03/18 18:12 Urine Opiates Screen Positive (NEGATIVE) H 05/03/18 20:14 Urine Methadone Screen Negative (NEGATIVE) 05/03/18 20:14 Ur Barbiturates Screen Negative (NEGATIVE) 05/03/18 20:14 Ur Phencyclidine Scrn Negative (NEGATIVE) 05/03/18 20:14 Ur Amphetamines Screen Negative (NEGATIVE) 05/03/18 20:14 U Benzodiazepines Scrn Negative (NEGATIVE) 05/03/18 20:14 U Oth Cocaine Metabols Negative (NEGATIVE) 05/03/18 20:14 U Cannabinoids Screen Positive (NEGATIVE) H 05/03/18 20:14 Alcohol, Quantitative < 10 mg/dL (0-10) 05/03/18 18:55 Attending/Attestation - Attestation I have personally seen and examined this patient.: Yes I have fully participated in the care of the patient.: Yes I have reviewed all pertinent clinical information, including history, physical exam and plan: Yes Notes (Text): 05/05/18 15:01 37 year old male with past medical history of alcohol abuse, ascites, and pancreatitis who presented with abdominal pain and distention. He was found to have significant ascites and elevated LFTs. Leukocytosis likely secondary to recent steroids. He was seen by GI who recommended to increase his spironalactone dose. He was also seen by IR and is s/p 6.8 L fluid removal via paracentesis yesterday. He reports significant improvement of symptoms s/p tap. Patient is discharged home to follow up with pmd. Follow up with GI. Follow up with tertiary care GI clinic in [facility]. Continue with diuretics. Counselled on alcohol abstinence. Kingsley Larson MD Hospitalist.
== END 2018-05-05 12:20 | disposition home or self-care (01) | DRG 280 ==
LOC: ED 14:37 → ERH 17:19 → 5RNO 21:43
PROVIDERS: ADMIT Internal Medicine; ATTEND Internal Medicine
PROC: 0W9G3ZZ Drainage of Peritoneal Cavity, Percutaneous Approach (ICD-10-PCS; principal; 2018-05-04 12:00)
DX: K70.31 Alcoholic cirrhosis of liver with ascites (principal); F10.10 Alcohol abuse, uncomplicated; F17.210 Nicotine dependence, cigarettes, uncomplicated; R59.9 Enlarged lymph nodes, unspecified; K59.00 Constipation, unspecified; D72.829 Elevated white blood cell count, unspecified; T38.0X5A Adverse effect of glucocorticoids and synthetic analogues, initial encounter

== ENCOUNTER 2018-06-03 21:03 | Inpatient (IN) | payer OTHER ==
[2018-06-03 21:17] VITALS: BMI 27.6
--- NOTE | 2018-06-03 21:33 | ED PDOC ---
Arrival/HPI - General Chief Complaint: Abdominal Pain Time Seen by Provider: 06/03/18 21:04 Historian: Patient - History of Present Illness Narrative History of Present Illness (Text): 06/03/18 21:33 37 year male, whose past medical history includes alcohol abuse, pancreatitis, and ascities, presents to the emergency department complaining of abdominal discomfort for the past 2 weeks. Patient describes the discomfort as a tightness stretching across his abdominal wall. He reports his last paracentesis was 2 weeks, but was unsure how much was drained or who performed the procedure. Patient is a poor historian. He also reportedly states his last alcoholic drink was 2 years ago. Patient denies any fever, chills, chest pain, shortness of breath, nausea, vomiting, diarrhea, urinary symptoms, back pain, neck pain, headache, dizziness, or any other complaints. Time/Duration: Other (2 weeks) Symptom Onset: Gradual Symptom Course: Unchanged Quality: Fullness Activities at Onset: Light Context: Home Past Medical History - Provider Review Nursing Documentation Reviewed: Yes - Travel History Have you recently traveled outside [place] w/in the past 3 mons?: No - Past History Past History: Non-Contributing - Infectious Disease Hx of Infectious Diseases: None - Cardiac Hx Cardiac Disorders: No - Pulmonary Hx Respiratory Disorders: No - Neurological Hx Neurological Disorder: No - HEENT Hx HEENT Disorder: No - Renal Hx Renal Disorder: No - Endocrine/Metabolic Hx Endocrine Disorders: No - Hematological/Oncological Hx Blood Disorders: No - Integumentary Hx Dermatological Disorder: No - Musculoskeletal/Rheumatological Hx Musculoskeletal Disorders: No - Gastrointestinal Hx Gastrointestinal Disorders: No - Genitourinary/Gynecological Hx Genitourinary Disorders: No - Psychiatric Hx Psychophysiologic Disorder: No Hx Substance Use: No - Surgical History Hx Amputation: No Hx Appendectomy: No Hx Cardiac Catheterization: No Hx Cholecystectomy: No Hx Coronary Stent: No Hx Gastric Bypass Surgery: No Hx Hysterectomy: No Hx Joint Replacement: No Hx Kidney Transplant: No Hx Liver Transplant: No Hx Mastectomy: No Hx Musculoskeletal Surgery: No Hx Open Heart Surgery: No Hx Orthopedic Surgery: No Hx Splenectomy: No Hx Valve Replacement: No - Suicidal Assessment Feels Threatened In Home Enviroment: No Family/Social History - Physician Review Nursing Documentation Reviewed: Yes Family/Social History: No Known Family HX Smoking Status: Current Some Days Smoker Hx Alcohol Use: Yes Hx Substance Use: No Hx Substance Use Treatment: No Allergies/Home Meds Allergies/Adverse Reactions: Allergies No Known Allergies Allergy (Verified 05/03/18 21:02) Review of Systems - Physician Review All systems were reviewed & negative as marked: Yes - Review of Systems Constitutional: absent: Fevers, Other (Chills) Respiratory: absent: SOB Cardiovascular: absent: Chest Pain Gastrointestinal: Abdominal Pain. absent: Diarrhea, Nausea, Vomiting Genitourinary Male: absent: Dysuria, Frequency, Hematuria Musculoskeletal: absent: Back Pain, Neck Pain Neurological: absent: Headache, Dizziness Physical Exam Vital Signs Reviewed: Yes Temperature: Afebrile Blood Pressure: Normal Pulse: Regular Respiratory Rate: Normal Appearance: Positive for: Well-Appearing, Non-Toxic, Comfortable Pain Distress: None Mental Status: Positive for: Alert and Oriented X 3 - Systems Exam Head: Present: Atraumatic, Normocephalic Pupils: Present: PERRL Extroacular Muscles: Present: EOMI Conjunctiva: Present: Icteric (Jaundice) Mouth: Present: Moist Mucous Membranes Neck: Present: Normal Range of Motion Respiratory/Chest: Present: Clear to Auscultation, Good Air Exchange. No: Respiratory Distress, Accessory Muscle Use Cardiovascular: Present: Regular Rate and Rhythm, Normal S1, S2. No: Murmurs Abdomen: Present: Distention (with tense ascites), Other ((+)fluid shift (-) No straie noted on abdominal cavity). No: Tenderness, Peritoneal Signs Back: Present: Normal Inspection Upper Extremity: Present: Normal Inspection. No: Cyanosis, Edema Lower Extremity: Present: Normal Inspection. No: Edema Neurological: Present: GCS=15, CN II-XII Intact, Speech Normal Skin: Present: Warm, Dry, Normal Color. No: Rashes Psychiatric: Present: Alert, Oriented x 3, Normal Insight, Normal Concentration Medical Decision Making ED Course and Treatment: 06/03/18 21:33 Impression: 37 year old male w/ h/o ascities presents complaining of abdominal tightness. Differential Diagnosis included but are not limited to: --SBP --Malignant Ascites Plan: -- VBG -- Labs -- Chest X-ray -- Urinalysis -- Reassess and disposition Prior Visits: Notes and results from previous visits were reviewed. Progress Notes: 06/03/18 22:54 Labs reviewed with no leukocytosis noted, electrolytes within normal limits & elevated transaminases consistent with preexisting liver disease. Shared decision making with patient who desires to stay for paracentesis. Case discussed with residential driver and Dr. Vazquez(house staff)who is aware and agrees with the plan for urgent paracentesis. - Lab Interpretations Lab Results: 06/03/18 22:01 06/03/18 22:01 Lab Results 06/03/18 22:: pO2 49, VBG pH 7.41, VBG pCO2 39.0 L, VBG HCO3 24.7, VBG Total CO2 25.9, VBG O2 Sat (Calc) 88.3 H, VBG Base Excess 0.1, VBG Potassium 3.6, Sodium 137.0, Chloride 104.0, Glucose 97, Lactate 1.5, FiO2 21.0, Venous Blood Potassium 3.6 06/03/18 22:: Alcohol, Quantitative < 10 06/03/18 22:: Sodium 137, Chloride 106, Potassium 3.6, Carbon Dioxide 24, Anion Gap 10, BUN 10, Creatinine 0.6 L, Est GFR ( Amer) > 60, Est GFR (Non-Af Amer) > 60, Random Glucose 101, Calcium 8.7, Magnesium 1.7, Total Bilirubin 3.8 H, AST 51, ALT 23, Alkaline Phosphatase 272 H D, Total Protein 7.5, Albumin 3.2, Globulin 4.2, Albumin/Globulin Ratio 0.8 L 06/03/18 22:: PT 15.4 H, INR 1.34, APTT 36.0 06/03/18 22:01: WBC 7.7 D, RBC 3.65, Hgb 12.4 L, Hct 35.7 L, MCV 97.8, MCH 34.0, MCHC 34.7, RDW 12.6, Plt Count 201, MPV 9.9, Gran % 58.4, Lymph % (Auto) 32.6, [place] % (Auto) 7.3 H, Eos % (Auto) 1.4 L, Baso % (Auto) 0.3, Gran # 4.48, Lymph # (Auto) 2.5, [place] # (Auto) 0.6, Eos # (Auto) 0.1, Baso # (Auto) 0.02 I have reviewed the lab results: Yes - RAD Interpretation Narrative RAD Interpretations (Text): 06/03/18 23:41 CXR Impression: As read by me, no focal infiltrates or consolidation. Radiology Orders: 06/03/18 21:31 CHEST PORTABLE [RAD] Stat Superintendent Cemetery: ED Physician - Scribe Statement The provider has reviewed the documentation as recorded by the Pawanibe Ernst Turner Provider Scribe Attestation: All medical record entries made by the Pawanibpanda were at my direction and personally dictated by me. I have reviewed the chart and agree that the record accurately reflects my personal performance of the history, physical exam, medical decision making, and the department course for this patient. I have also personally directed, reviewed, and agree with the discharge instructions and disposition. Disposition/Present on Arrival - Present on Arrival Any Indicators Present on Arrival: No History of DVT/PE: No History of Uncontrolled Diabetes: No Urinary Catheter: No History Surgical Site Infection Following: None - Disposition Have Diagnosis and Disposition been Completed?: Yes Diagnosis: Ascites Disposition: HOSPITALIZED Disposition Time: 22:54 Patient Plan: Admission Condition: GOOD
[2018-06-03 22:04] LABS: BASO # 0.02 K/mm3 (0.0-2.0); BASO % 0.3 % (0.0-3.0); EOS # 0.1 (0.0-0.7); EOS % 1.4 % (1.5-5.0); GRAN # 4.48 (1.4-6.5); GRAN % 58.4 % (50.0-68.0); HEMOGLOBIN 12.4 g/dL (14.0-18.0); LYMPH # 2.5 (1.2-3.4); LYMPH % 32.6 % (22.0-35.0); MEAN CELL VOLUME 97.8 fl (80.0-105.0); MEAN CORPUSCULAR HGB CONC 34.7 g/dl (31.0-37.0); MEAN PLATELET VOLUME 9.9 fl (7.0-11.0); MONO # 0.6 (0.1-0.6); MONO % 7.3 % (1.0-6.0); RBC 3.65 10^6/uL (3.5-6.1); RED CELL DISTRIBUTION WIDTH 12.6 % (11.5-14.5); WHITE BLOOD COUNT 7.7 10^3/uL (4.5-11.0)
[2018-06-03 22:08] LABS: VENOUS BLOOD GAS BASE EXCESS 0.1 mmol/L (0.0-2.0); VENOUS BLOOD GAS PO2 49 mm/Hg (30-55); VENOUS BLOOD PH 7.41 (7.32-7.43)
[2018-06-03 22:17] LABS: INR 1.34; PROTHROMBIN TIME 15.4 SECONDS (9.4-12.5)
[2018-06-03 22:23] LABS: ALB/GLOB RATIO 0.8 (1.1-1.8); ALBUMIN 3.2 g/dL (3.0-4.8); ALT/SGPT 23 U/L (7-56); AST/SGOT 51 U/L (17-59); BLOOD UREA NITROGEN 10 mg/dL (7-21); CALCIUM 8.7 mg/dL (8.4-10.5); GFR NON-AFRICAN AMERICAN > 60
--- NOTE | 2018-06-04 02:54 | CP.PCM.HP ---
<JeffersonTerrence - Last Filed: 06/04/18 06:50> History of Present Illness - History of Present Illness History of Present Illness: Terrence Paulino DO PGY1. H&P Hospitalist Service, Dr George Flowers: abdominal distension 37 y/o with PMHx of alcohol abuse and pancreatitis presents to the ED with 3 weeks history of abdominal distension shorty after being discharged for [facility] for the same symptoms with therapeutic paracentesis. He does not follow up with outpatient GI. There is no associated syptoms. He denies recent ETOH use for the past 2 years. He denies CP, SOB, headaches, fevers, chills, pruritis, back pain, urinary complaints, numbness, tingling, swelling, diarrhea, constipation, melena, weight loss/gain, recent trauma, sick contacts and travel. Patient had 2 admissions in March and April 2018 for ascites with therapeutic paracentesis. 12 point ROS completed and negative except as described in HPI. PMD: Dr. Gomez PMH: alcohol abuse, pancreatitis in 07/2017, 11/2016 SH: in the past, drinks half a gallon of vodka daily for one year, one pint per day for many years before that. Smokes cigarettes 1ppd for the last 15 years. Denies drug use. Lives with a friend in [place]. Has no local family Sx: denies any history of surgeries FH: denies All: NKDA Meds: denies Present on Admission - Present on Admission Any Indicators Present on Admission: No Past Patient History - Infectious Disease Hx of Infectious Diseases: None - Past Social History Smoking Status: Current Some Days Smoker - CARDIAC Hx Cardiac Disorders: No Hx Angina: No Hx Cardia Arrhythmia: No Hx Circulatory Problems: No Hx Congestive Heart Failure: No - PULMONARY Hx Respiratory Disorders: No - NEUROLOGICAL Hx Neurological Disorder: No - HEENT Hx HEENT Problems: No - RENAL Hx Chronic Kidney Disease: No - ENDOCRINE/METABOLIC Hx Endocrine Disorders: No - HEMATOLOGICAL/ONCOLOGICAL Hx Blood Disorders: No - INTEGUMENTARY Hx Dermatological Problems: No - MUSCULOSKELETAL/RHEUMATOLOGICAL Hx Falls: No - GASTROINTESTINAL Hx Gastrointestinal Disorders: No - GENITOURINARY/GYNECOLOGICAL Hx Genitourinary Disorders: No - PSYCHIATRIC Hx Psychophysiologic Disorder: No Hx Substance Use: No - SURGICAL HISTORY Hx Cardiac Catheterization: No Meds Allergies/Adverse Reactions: Allergies Allergy/AdvReac Type Severity Reaction Status Date / Time No Known Allergies Allergy Verified 05/03/18 21:02 Physical Exam - Constitutional Appears: Well, No Acute Distress - Head Exam Head Exam: ATRAUMATIC, NORMAL INSPECTION, NORMOCEPHALIC - Eye Exam Eye Exam: EOMI, Normal appearance, PERRL Pupil Exam: NORMAL ACCOMODATION, PERRL - ENT Exam ENT Exam: Mucous Membranes Moist, Normal Exam - Neck Exam Neck exam: Positive for: Normal Inspection - Respiratory Exam Respiratory Exam: Clear to Auscultation Bilateral, NORMAL BREATHING PATTERN - Cardiovascular Exam Cardiovascular Exam: REGULAR RHYTHM, +S1, +S2. absent: Gallop, Rubs - GI/Abdominal Exam GI & Abdominal Exam: Distended, Normal Bowel Sounds, Soft, Tenderness (TTP in epigastric area) Additional comments: no stria, no spider angioma - Expanded GI/Abdominal Exam Expanded Expanded GI & Abdominal Exam: Ascites (positive fluid shift, ) - Extremities Exam Extremities exam: Positive for: normal capillary refill, normal inspection, pedal pulses present - Back Exam Back exam: NORMAL INSPECTION - Neurological Exam Neurological exam: Alert, CN II-XII Intact, Oriented x3, Reflexes Normal - Psychiatric Exam Psychiatric exam: Normal Affect, Normal Mood Results - Vital Signs Recent Vital Signs: Last Vital Signs Temp Pulse 79 06/03/18 22:37 Resp 20 06/04/18 00:24 BP 100/77 06/03/18 22:37 Pulse Ox 99 06/03/18 22:37 - Labs Result Diagrams: 06/03/18 22:01 06/03/18 22:01 Labs: Laboratory Results - last 24 hr 06/03/18 06/03/18 06/03/18 22:01 22:01 22:01 WBC 7.7 D RBC 3.65 Hgb 12.4 L Hct 35.7 L MCV 97.8 MCH 34.0 MCHC 34.7 RDW 12.6 Plt Count 201 MPV 9.9 Gran % 58.4 Lymph % (Auto) 32.6 [place] % (Auto) 7.3 H Eos % (Auto) 1.4 L Baso % (Auto) 0.3 Gran # 4.48 Lymph # (Auto) 2.5 Henry # (Auto) 0.6 Eos # (Auto) 0.1 Baso # (Auto) 0.02 PT 15.4 H INR 1.34 APTT 36.0 pO2 VBG pH VBG pCO2 VBG HCO3 VBG Total CO2 VBG O2 Sat (Calc) VBG Base Excess VBG Potassium Sodium 137 Chloride 106 Glucose Lactate FiO2 Potassium 3.6 Carbon Dioxide 24 Anion Gap 10 BUN 10 Creatinine 0.6 L Est GFR ( Amer) > 60 Est GFR (Non-Af Amer) > 60 Random Glucose 101 Calcium 8.7 Magnesium 1.7 Total Bilirubin 3.8 H AST 51 ALT 23 Alkaline Phosphatase 272 H D Total Protein 7.5 Albumin 3.2 Globulin 4.2 Albumin/Globulin Ratio 0.8 L Venous Blood Potassium Alcohol, Quantitative 06/03/18 06/03/18 22:01 22:01 WBC RBC Hgb Hct MCV MCH MCHC RDW Plt Count MPV Gran % Lymph % (Auto) [place] % (Auto) Eos % (Auto) Baso % (Auto) Gran # Lymph # (Auto) [place] # (Auto) Eos # (Auto) Baso # (Auto) PT INR APTT pO2 49 VBG pH 7.41 VBG pCO2 39.0 L VBG HCO3 24.7 VBG Total CO2 25.9 VBG O2 Sat (Calc) 88.3 H VBG Base Excess 0.1 VBG Potassium 3.6 Sodium 137.0 Chloride 104.0 Glucose 97 Lactate 1.5 FiO2 21.0 Potassium Carbon Dioxide Anion Gap BUN Creatinine Est GFR ( Amer) Est GFR (Non-Af Amer) Random Glucose Calcium Magnesium Total Bilirubin AST ALT Alkaline Phosphatase Total Protein Albumin Globulin Albumin/Globulin Ratio Venous Blood Potassium 3.6 Alcohol, Quantitative < 10 Assessment & Plan - Assessment and Plan (Free Text) Assessment: 37 y/o with PMHx of alcohol abuse and pancreatitis presents to the ED with 3 we eks history of abdominal distension shorty after being discharged for [facility]. No peritonial signs, no leukocytosis Plan: Abdominal distension: -2 admissions in March and April 2018 for ascites with therapeutic paracentesis -patient is non-compliant with home meds since last hospital discharge. hemodynamically stable, no signs of infection, in NAD -AST/ALT/ALP 51/23/272 -Albumin3.2 -PT/INR 15.4/1.34 -CT A/P ordered -started lasix 40 mg daily -started folic acid, MVI, thiamine, protonix -started spironolactone, lactulose -started rocephin for SBP ppx -GI consulted, Dr Zepeda -N[place] consulted, Dr Huitron H/O alcohol abuse: -BAL negative -ativan prn -UDS ordered Prophylaxis: -GI ppx: protonix -DVT ppx: SCD Case reviewed and paln discussed with Dr George Paulino, DO PGY1 <Roger Vazquez - Last Filed: 06/06/18 14:23> Results - Vital Signs Recent Vital Signs: Last Vital Signs Temp 98.2 F 06/06/18 07:00 Pulse 70 06/06/18 07:00 Resp 18 06/06/18 07:00 BP 121/84 06/06/18 10:05 Pulse Ox 97 06/06/18 07:00 - Labs Result Diagrams: 06/06/18 06:30 06/06/18 06:30 Labs: Laboratory Results - last 24 hr 06/04/18 06/06/18 06/06/18 10:40 06:30 06:30 WBC 6.9 RBC 3.61 Hgb 11.9 L Hct 35.3 L MCV 97.8 MCH 33.0 MCHC 33.7 RDW 12.6 Plt Count 186 MPV 10.2 Gran % 56.3 Lymph % (Auto) 34.4 Henry % (Auto) 7.3 H Eos % (Auto) 1.7 Baso % (Auto) 0.3 Gran # 3.88 Lymph # (Auto) 2.4 Henry # (Auto) 0.5 Eos # (Auto) 0.1 Baso # (Auto) 0.02 PT INR APTT Sodium 137 Potassium 3.8 Chloride 107 Carbon Dioxide 25 Anion Gap 9 L BUN 10 Creatinine 0.6 L Est GFR ( Amer) > 60 Est GFR (Non-Af Amer) > 60 Random Glucose 97 Calcium 8.6 Total Bilirubin 3.2 H AST 43 ALT 23 Alkaline Phosphatase 249 H Total Protein 7.4 Albumin 3.2 Globulin 4.2 Albumin/Globulin Ratio 0.7 L Fluid Source Peritoneal Fluid Appearance Clear Fluid WBC 314.0 H Fluid Tot Cell Count 100 H Fluid Mononuclear Cell 93.0 H Fl Polymorphonucl Cell 7.0 H Fluid Comment TEST NOT PERFORMED 06/06/18 06:30 WBC RBC Hgb Hct MCV MCH MCHC RDW Plt Count MPV Gran % Lymph % (Auto) Henry % (Auto) Eos % (Auto) Baso % (Auto) Gran # Lymph # (Auto) Henry # (Auto) Eos # (Auto) Baso # (Auto) PT 15.9 H INR 1.37 APTT 35.2 Sodium Potassium Chloride Carbon Dioxide Anion Gap BUN Creatinine Est GFR ( Amer) Est GFR (Non-Af Amer) Random Glucose Calcium Total Bilirubin AST ALT Alkaline Phosphatase Total Protein Albumin Globulin Albumin/Globulin Ratio Fluid Source Fluid Appearance Fluid WBC Fluid Tot Cell Count Fluid Mononuclear Cell Fl Polymorphonucl Cell Fluid Comment Attending/Attestation - Attestation I have personally seen and examined this patient.: Yes I have fully participated in the care of the patient.: Yes I have reviewed all pertinent clinical information: Yes
[2018-06-04] MEDS: Pantoprazole 40 mg EC Tab PO SCH (06:20)
[2018-06-04 08:55] LABS: BASO # 0.03 K/mm3 (0.0-2.0); BASO % 0.5 % (0.0-3.0); EOS # 0.1 (0.0-0.7); EOS % 1.7 % (1.5-5.0); GRAN # 3.08 (1.4-6.5); GRAN % 52.5 % (50.0-68.0); LYMPH # 2.2 (1.2-3.4); LYMPH % 37.5 % (22.0-35.0); MEAN CELL VOLUME 98.1 fl (80.0-105.0); MEAN CORPUSCULAR HEMOGLOBIN 33.4 pg (25.0-35.0); MEAN CORPUSCULAR HGB CONC 34.1 g/dl (31.0-37.0); MEAN PLATELET VOLUME 10.1 fl (7.0-11.0); MONO # 0.5 (0.1-0.6); MONO % 7.8 % (1.0-6.0); RBC 3.59 10^6/uL (3.5-6.1); RED CELL DISTRIBUTION WIDTH 12.6 % (11.5-14.5); WHITE BLOOD COUNT 5.9 10^3/uL (4.5-11.0)
[2018-06-04] MEDS: Multivitamin With Minerals Tab PO SCH (09:37)
[2018-06-04] MEDS: cefTRIAXone 1 gm 1 GM/100 ML BAG IVPB SCH (09:38)
--- NOTE | 2018-06-04 10:02 | CP.PCM.CON ---
<Jairon Dobbs - Last Filed: 06/04/18 10:19> History of Present Illness - History of Present Illness History of Present Illness: PGY-4 GI Fellow Consult Note The following mostly obtained from chart review and hospital staff as patient mildly encephalopathic during encounter 37 yo WM with EtOH Cirrhosis (c/b Ascites, EtOH Hepatitis, unknown liver mass), EtOH abuse, EtOH induced Pancreatitis presenting with complaint of abdominal distension. He states since his last paracentesis in April he has had progressively worse abdominal distension. He states that he is not on medication and that he has not consumed alcohol in 2 years that recently admitted to c onsumption when evaluated a few months ago. He denied any F/C, over abd pain, SOB, nor signs of bleeding. Unable to obtain full ROS due to clinical condition MHx: See above SurgHx: Paracentesis, last 05/04/18 Meds: None FamHx: Denied GI problems SocHx: Half gallon vodka daily previously though stating none now, +1 ppd Tob, denies illicits All: NKDA Past Patient History - Infectious Disease Hx of Infectious Diseases: None - Past Social History Smoking Status: Current Some Days Smoker - CARDIAC Hx Cardiac Disorders: No Hx Angina: No Hx Cardia Arrhythmia: No Hx Circulatory Problems: No Hx Congestive Heart Failure: No - PULMONARY Hx Respiratory Disorders: No - NEUROLOGICAL Hx Neurological Disorder: No - HEENT Hx HEENT Problems: No - RENAL Hx Chronic Kidney Disease: No - ENDOCRINE/METABOLIC Hx Endocrine Disorders: No - HEMATOLOGICAL/ONCOLOGICAL Hx Blood Disorders: No - INTEGUMENTARY Hx Dermatological Problems: No - MUSCULOSKELETAL/RHEUMATOLOGICAL Hx Falls: No - GASTROINTESTINAL Hx Gastrointestinal Disorders: No - GENITOURINARY/GYNECOLOGICAL Hx Genitourinary Disorders: No - PSYCHIATRIC Hx Psychophysiologic Disorder: No Hx Substance Use: No - SURGICAL HISTORY Hx Cardiac Catheterization: No Meds Allergies/Adverse Reactions: Allergies Allergy/AdvReac Type Severity Reaction Status Date / Time No Known Allergies Allergy Verified 05/03/18 21:02 - Medications Medications: Current Medications Folic Acid (Folic Acid) 1 mg PO DAILY [facility] Last Admin: 06/04/18 09:37 Dose: 1 mg Furosemide (Lasix) 40 mg PO DAILY [facility] Last Admin: 06/04/18 09:37 Dose: 40 mg Ceftriaxone Sodium (Rocephin 1 Gram Ivpb) 1 gm in 100 mls @ 100 mls/hr IVPB DAILY [facility]; Protocol Last Admin: 06/04/18 09:38 Dose: 100 mls/hr Lactulose (Enulose) 20 gm PO HS [facility] Lorazepam (Ativan) 1 mg PO ONCE PRN; Protocol PRN Reason: Anxiety Multivitamins/Minerals (Therapeutic-M Tab) 1 tab PO 0800 [facility] Last Admin: 06/04/18 09:37 Dose: 1 tab Pantoprazole Sodium (Protonix Ec Tab) 40 mg PO 0600 [facility] Last Admin: 06/04/18 06:20 Dose: 40 mg Spironolactone (Aldactone) 50 mg PO TID [facility] Last Admin: 06/04/18 09:37 Dose: 50 mg Thiamine HCl (Vitamin B1 Tab) 50 mg PO DAILY [facility] Last Admin: 06/04/18 09:37 Dose: 50 mg Physical Exam - Constitutional Appears: No Acute Distress, Confused, Chronically Ill - Head Exam Head Exam: ATRAUMATIC, NORMAL INSPECTION - Eye Exam Eye Exam: EOMI, Scleral icterus - ENT Exam ENT Exam: Mucous Membranes Dry. absent: Mucous Membranes Moist - Respiratory Exam Respiratory Exam: Clear to Auscultation Bilateral. absent: Accessory Muscle Use, Respiratory Distress - Cardiovascular Exam Cardiovascular Exam: REGULAR RHYTHM, RRR - GI/Abdominal Exam GI & Abdominal Exam: Distended, Normal Bowel Sounds, Soft. absent: Bruit, Diminished Bowel Sounds, Firm, Guarding, Hernia, Mass, Organomegaly, Pulsatile Mass, Rebound, Rigid, Tenderness Additional comments: +flank fullness, dull to percussion in lower quadrants - Rectal Exam Rectal Exam: Deferred - Extremities Exam Extremities exam: Positive for: normal inspection. Negative for: pedal edema - Neurological Exam Neurological exam: Alert Additional comments: slow speaking, confused at times and changing story, no obvious asterixis. - Psychiatric Exam Psychiatric exam: Normal Affect, Normal Mood - Skin Skin Exam: Dry, Warm Results - Vital Signs Recent Vital Signs: Last Vital Signs Temp 98.4 F 06/04/18 06:00 Pulse 75 06/04/18 06:00 Resp 20 06/04/18 06:00 BP 111/80 06/04/18 09:37 Pulse Ox 95 06/04/18 06:00 - Labs Result Diagrams: 06/04/18 08:30 06/03/18 22:01 Labs: Laboratory Results - last 24 hr 06/03/18 06/03/18 06/03/18 22:01 22:01 22:01 WBC 7.7 D RBC 3.65 Hgb 12.4 L Hct 35.7 L MCV 97.8 MCH 34.0 MCHC 34.7 RDW 12.6 Plt Count 201 MPV 9.9 Gran % 58.4 Lymph % (Auto) 32.6 [place] % (Auto) 7.3 H Eos % (Auto) 1.4 L Baso % (Auto) 0.3 Gran # 4.48 Lymph # (Auto) 2.5 [place] # (Auto) 0.6 Eos # (Auto) 0.1 Baso # (Auto) 0.02 PT 15.4 H INR 1.34 APTT 36.0 pO2 VBG pH VBG pCO2 VBG HCO3 VBG Total CO2 VBG O2 Sat (Calc) VBG Base Excess VBG Potassium Sodium 137 Chloride 106 Glucose Lactate FiO2 Potassium 3.6 Carbon Dioxide 24 Anion Gap 10 BUN 10 Creatinine 0.6 L Est GFR ( Amer) > 60 Est GFR (Non-Af Amer) > 60 Random Glucose 101 Calcium 8.7 Magnesium 1.7 Total Bilirubin 3.8 H AST 51 ALT 23 Alkaline Phosphatase 272 H D Total Protein 7.5 Albumin 3.2 Globulin 4.2 Albumin/Globulin Ratio 0.8 L Venous Blood Potassium Alcohol, Quantitative 06/03/18 06/03/18 06/04/18 22:01 22:01 08:30 WBC 5.9 D RBC 3.59 Hgb 12.0 L Hct 35.2 L MCV 98.1 MCH 33.4 MCHC 34.1 RDW 12.6 Plt Count 191 MPV 10.1 Gran % 52.5 Lymph % (Auto) 37.5 H [place] % (Auto) 7.8 H Eos % (Auto) 1.7 Baso % (Auto) 0.5 Gran # 3.08 Lymph # (Auto) 2.2 [place] # (Auto) 0.5 Eos # (Auto) 0.1 Baso # (Auto) 0.03 PT INR APTT pO2 49 VBG pH 7.41 VBG pCO2 39.0 L VBG HCO3 24.7 VBG Total CO2 25.9 VBG O2 Sat (Calc) 88.3 H VBG Base Excess 0.1 VBG Potassium 3.6 Sodium 137.0 Chloride 104.0 Glucose 97 Lactate 1.5 FiO2 21.0 Potassium Carbon Dioxide Anion Gap BUN Creatinine Est GFR ( Amer) Est GFR (Non-Af Amer) Random Glucose Calcium Magnesium Total Bilirubin AST ALT Alkaline Phosphatase Total Protein Albumin Globulin Albumin/Globulin Ratio Venous Blood Potassium 3.6 Alcohol, Quantitative < 10 Assessment & Plan - Assessment and Plan (Free Text) Assessment: 37 yo WM with EtOH Cirrhosis, Abuse presenting with abd distension. # EtOH Cirrhosis + Hepatitis: MELD-Na 17, Maddrey 19. Therefore steroids not indicated at this time. Pt seems, at least on lab work to perhap not have been drinking recently. - Ascites: Not compliant with diuretics nor likely low salt diet as OP. Paracentesis x2 in the last 8 weeks. - HCC?: Mass seen on CT not typical of HCC. Plan for repeat imaging 3 months. - HE: Mild. No obv asterixis. - EV: Needs screening EGD at some point # EtOH Abuse: 1/3 gallon vodka daily. Last drink unknown. # Tobacco abuse: 1 ppd x years. Plan: - Paracentesis with cell count and diff --- Plan for 25% albumin infusion (6-8 g/L removed) if > 5 L removed - Agree with Ceftriaxone; will need to increase dose to 2 g if SBP+ --- Will need 25% albumin if SBP+ (1.5 g/kg day 1, 1 g/kg day 3) - Monitor CMP, INR, CBC daily --- May benefit from steroids if labs worsen - Cancelled Abd CT, can evaluate with US if desired, but no obv abd pain - Switch diuretics to Spironolactone 100 mg QD, Furosemide 40 mg QD - Low Na diet - Cont lactulose for HE - Consider stopping PPI if no clear indication as places pt with cirrhosis at higher risk of infection - Recommend repeat Liver CT in Jul 2018 - Recommend outpatient f/u with PCP and GI Pt seen and examined with Dr. Zepeda. See attestation for further recs/changes. Jairon Dobbs, PGY-4 <Inocencio Zepeda Y - Last Filed: 06/04/18 10:36> Meds - Medications Medications: Current Medications Folic Acid (Folic Acid) 1 mg PO DAILY [facility] Last Admin: 06/04/18 09:37 Dose: 1 mg Furosemide (Lasix) 40 mg PO DAILY [facility] Last Admin: 06/04/18 09:37 Dose: 40 mg Ceftriaxone Sodium (Rocephin 1 Gram Ivpb) 1 gm in 100 mls @ 100 mls/hr IVPB DAILY [facility]; Protocol Last Admin: 06/04/18 09:38 Dose: 100 mls/hr Lactulose (Enulose) 20 gm PO HS [facility] Lorazepam (Ativan) 1 mg PO ONCE PRN; Protocol PRN Reason: Anxiety Multivitamins/Minerals (Therapeutic-M Tab) 1 tab PO 0800 [facility] Last Admin: 06/04/18 09:37 Dose: 1 tab Pantoprazole Sodium (Protonix Ec Tab) 40 mg PO 0600 [facility] Last Admin: 06/04/18 06:20 Dose: 40 mg Spironolactone (Aldactone) 50 mg PO TID [facility] Last Admin: 06/04/18 09:37 Dose: 50 mg Thiamine HCl (Vitamin B1 Tab) 50 mg PO DAILY [facility] Last Admin: 06/04/18 09:37 Dose: 50 mg Results - Vital Signs Recent Vital Signs: Last Vital Signs Temp 98.4 F 06/04/18 06:00 Pulse 75 06/04/18 06:00 Resp 20 06/04/18 06:00 BP 111/80 06/04/18 09:37 Pulse Ox 95 06/04/18 06:00 - Labs Result Diagrams: 06/04/18 08:30 06/03/18 22:01 Labs: Laboratory Results - last 24 hr 06/03/18 06/03/18 06/03/18 22:01 22:01 22:01 WBC 7.7 D RBC 3.65 Hgb 12.4 L Hct 35.7 L MCV 97.8 MCH 34.0 MCHC 34.7 RDW 12.6 Plt Count 201 MPV 9.9 Gran % 58.4 Lymph % (Auto) 32.6 [place] % (Auto) 7.3 H Eos % (Auto) 1.4 L Baso % (Auto) 0.3 Gran # 4.48 Lymph # (Auto) 2.5 [place] # (Auto) 0.6 Eos # (Auto) 0.1 Baso # (Auto) 0.02 PT 15.4 H INR 1.34 APTT 36.0 pO2 VBG pH VBG pCO2 VBG HCO3 VBG Total CO2 VBG O2 Sat (Calc) VBG Base Excess VBG Potassium Sodium 137 Chloride 106 Glucose Lactate FiO2 Potassium 3.6 Carbon Dioxide 24 Anion Gap 10 BUN 10 Creatinine 0.6 L Est GFR ( Amer) > 60 Est GFR (Non-Af Amer) > 60 Random Glucose 101 Calcium 8.7 Magnesium 1.7 Total Bilirubin 3.8 H AST 51 ALT 23 Alkaline Phosphatase 272 H D Total Protein 7.5 Albumin 3.2 Globulin 4.2 Albumin/Globulin Ratio 0.8 L Venous Blood Potassium Alcohol, Quantitative 06/03/18 06/03/18 06/04/18 22:01 22:01 08:30 WBC 5.9 D RBC 3.59 Hgb 12.0 L Hct 35.2 L MCV 98.1 MCH 33.4 MCHC 34.1 RDW 12.6 Plt Count 191 MPV 10.1 Gran % 52.5 Lymph % (Auto) 37.5 H [place] % (Auto) 7.8 H Eos % (Auto) 1.7 Baso % (Auto) 0.5 Gran # 3.08 Lymph # (Auto) 2.2 [place] # (Auto) 0.5 Eos # (Auto) 0.1 Baso # (Auto) 0.03 PT INR APTT pO2 49 VBG pH 7.41 VBG pCO2 39.0 L VBG HCO3 24.7 VBG Total CO2 25.9 VBG O2 Sat (Calc) 88.3 H VBG Base Excess 0.1 VBG Potassium 3.6 Sodium 137.0 Chloride 104.0 Glucose 97 Lactate 1.5 FiO2 21.0 Potassium Carbon Dioxide Anion Gap BUN Creatinine Est GFR ( Amer) Est GFR (Non-Af Amer) Random Glucose Calcium Magnesium Total Bilirubin AST ALT Alkaline Phosphatase Total Protein Albumin Globulin Albumin/Globulin Ratio Venous Blood Potassium 3.6 Alcohol, Quantitative < 10 Attending/Attestation - Attestation I have personally seen and examined this patient.: Yes I have fully participated in the care of the patient.: Yes I have reviewed all pertinent clinical information: Yes Notes (Text): 06/04/18 10:29 I have seen and examined patient with GI fellow. Agree with above documentation with the following additions. In brief, this is a 37 year old male with history of decompensated ETOH cirrhosis who presents to hospital with complaint of progressive abdominal distention. He received an outpatient paracentesis last month but was not able to schedule repeat outpatient procedure. He denies abdominal pain, nausea, vomiting, fever/chills, weight loss, rectal bleeding, or change in bowel habits. He claims to have stopped ETOH consumption but cannot provide additional details. Review of vitals from today are normal. Decompensated ETOH cirrhosis - MELD 17 Ascites History of liver lesion, atypical for HCC based on triple phase CT from March 2018, normal AFP - Low sodium diet as tolerated - Continue with diuretic therapy, monitor electrolytes - Patient requires repeat paracentesis, would check for cell count - Continue with lactulose for HE prevention, titrated so patient has 3 bowel movements daily - Patient would benefit from additional outpatient follow up with EGD for [place] screening. Would also suggest repeat abdominal imaging with contrast to follow up on previously visualized liver lesion. No further planned GI intervention, will sign off case. Please reconsult as necessary, thank you.
[2018-06-04 11:07] LABS: ALB/GLOB RATIO 0.7 (1.1-1.8); ALT/SGPT 28 U/L (7-56); AST/SGOT 45 U/L (17-59); BLOOD UREA NITROGEN 9 mg/dL (7-21); CALCIUM 8.6 mg/dL (8.4-10.5); GFR NON-AFRICAN AMERICAN > 60
--- NOTE | 2018-06-04 11:11 | RAD ---
Date of service: 06/03/2018 HISTORY: Shortness of breath COMPARISON: 04/02/2018 FINDINGS: LUNGS: No active pulmonary disease. PLEURA: No significant pleural effusion identified, no pneumothorax apparent. CARDIOVASCULAR: No atherosclerotic calcification present Normal. OSSEOUS STRUCTURES: Stable chest wall deformity on the left related to multiple old contiguous presumed posttraumatic rib fractures. VISUALIZED UPPER ABDOMEN: Normal. OTHER FINDINGS: None. IMPRESSION: No active disease. No significant interval change compared to the prior examination(s).
[2018-06-04 22:23] VITALS: RESP 18
[2018-06-05] MEDS: Pantoprazole 40 mg EC Tab PO SCH (05:36)
[2018-06-05 07:36] LABS: BASO # 0.02 K/mm3 (0.0-2.0); BASO % 0.3 % (0.0-3.0); EOS # 0.1 (0.0-0.7); EOS % 1.2 % (1.5-5.0); GRAN # 3.6 (1.4-6.5); GRAN % 55.8 % (50.0-68.0); HEMOGLOBIN 12.4 g/dL (14.0-18.0); LYMPH # 2.3 (1.2-3.4); MEAN CELL VOLUME 97.6 fl (80.0-105.0); MEAN CORPUSCULAR HEMOGLOBIN 32.8 pg (25.0-35.0); MEAN CORPUSCULAR HGB CONC 33.6 g/dl (31.0-37.0); MEAN PLATELET VOLUME 10.2 fl (7.0-11.0); MONO # 0.5 (0.1-0.6); MONO % 7.7 % (1.0-6.0); RBC 3.78 10^6/uL (3.5-6.1); RED CELL DISTRIBUTION WIDTH 12.5 % (11.5-14.5); WHITE BLOOD COUNT 6.5 10^3/uL (4.5-11.0)
[2018-06-05 07:49] LABS: ALB/GLOB RATIO 0.7 (1.1-1.8); ALBUMIN 3.1 g/dL (3.0-4.8); ALT/SGPT 27 U/L (7-56); AST/SGOT 44 U/L (17-59); BLOOD UREA NITROGEN 9 mg/dL (7-21); CALCIUM 8.5 mg/dL (8.4-10.5); GFR NON-AFRICAN AMERICAN > 60
[2018-06-05] MEDS: cefTRIAXone 1 gm 1 GM/100 ML BAG IVPB SCH (10:34)
[2018-06-05] MEDS: Multivitamin With Minerals Tab PO SCH (10:34)
--- NOTE | 2018-06-05 19:44 | CP.PCM.PN ---
<Cuco Hdez - Last Filed: 06/05/18 19:30> Subjective - Date & Time of Evaluation Date of Evaluation: 06/05/18 Time of Evaluation: 19:30 - Subjective Subjective: Cuco Hdez DO PGY1 - Internal Medicine Pasteurizer Helper - Medicine Progress Note Patient was seen and examined at bedside. No acute events reported overnight Patient denies any lethargy/ confusion, cp, sob, cough, worsening abd pain, n/v/d/c. Patient is tolerating diet well, and making good urine. Objective - Vital Signs/Intake and Output Vital Signs (last 24 hours): Temp Pulse Resp BP Pulse Ox 97.5 F L 82 18 110/80 97 06/05/18 06:00 06/05/18 06:00 06/05/18 06:00 06/05/18 10:34 06/05/18 06:00 - Medications Medications: Current Medications Folic Acid (Folic Acid) 1 mg PO DAILY [facility] Last Admin: 06/05/18 10:34 Dose: 1 mg Furosemide (Lasix) 40 mg PO DAILY [facility] Last Admin: 06/05/18 10:34 Dose: 40 mg Ceftriaxone Sodium (Rocephin 1 Gram Ivpb) 1 gm in 100 mls @ 100 mls/hr IVPB DAILY [facility]; Protocol Last Admin: 06/05/18 10:34 Dose: 100 mls/hr Lactulose (Enulose) 20 gm PO HS [facility] Last Admin: 06/04/18 21:38 Dose: 20 gm Lorazepam (Ativan) 1 mg PO ONCE PRN; Protocol PRN Reason: Anxiety Multivitamins/Minerals (Therapeutic-M Tab) 1 tab PO 0800 [facility] Last Admin: 06/05/18 10:34 Dose: 1 tab Spironolactone (Aldactone) 100 mg PO DAILY [facility] Last Admin: 06/05/18 10:34 Dose: 100 mg Thiamine HCl (Vitamin B1 Tab) 50 mg PO DAILY [facility] Last Admin: 06/05/18 10:34 Dose: 50 mg - Labs Labs: 06/05/18 07:00 06/05/18 07:00 PT 15.4 SECONDS (9.4-12.5) H 06/03/18 22:01 INR 1.34 06/03/18 22:01 APTT 36.0 Seconds (25.1-36.5) 06/03/18 22:01 - Constitutional Appears: Well, Non-toxic, No Acute Distress - Head Exam Head Exam: ATRAUMATIC, NORMOCEPHALIC - Eye Exam Eye Exam: EOMI, Normal appearance, PERRL, Scleral icterus - ENT Exam ENT Exam: Mucous Membranes Moist, Normal Exam - Respiratory Exam Respiratory Exam: Clear to Ausculation Bilateral, NORMAL BREATHING PATTERN - Cardiovascular Exam Cardiovascular Exam: REGULAR RHYTHM, RRR, +S1, +S2. absent: Murmur - GI/Abdominal Exam GI & Abdominal Exam: Distended, Normal Bowel Sounds Additional comments: Extremely diminished belly w/ fluid wave + No spider angioma, striae, or caput medusa visible - Extremities Exam Extremities Exam: Normal Capillary Refill, Normal Inspection - Neurological Exam Neurological Exam: Alert, Awake, CN II-XII Intact, Oriented x3 Additional comments: No flapping astrexis - Psychiatric Exam Psychiatric exam: Normal Affect, Normal Mood - Skin Skin Exam: Dry, Warm Additional comments: Jaundiced Assessment and Plan - Assessment and Plan (Free Text) Assessment: 37M w/ PMHX EtOH abuse, EtOH cirrhosis, and ascities, [place] [facility] [place] w/ 3wk complaint of worsening abdominal distension. Plan: Abdominal Distension most likely 2/2 ascities in setting of EtOH Cirrhosis MELD-Na - 16; <2% 90 day mortality Maddrey's - 22; no steroid therapy recommended Albumin: 3.1 INR: 1.34 C/w Low salt diet C/w Lasix 40 QD C/w Spironolocatone 100 QD C/w Lactulose - Ammonia - 36 C/w Ceftriaxone 1gm QD for SBP PPX; Can increase to 2gm if patient begins showing s/s SBP Will under go paracentesis by Dr. Huitron; As per GI will require 25% albumin infusion if >5L fluid removed GI consulted, Dr Zepeda IR consulted, Dr Huitron [facility] EtOH Abuse C/w Thiamine, Folic Acid, Multivit C/w Ativan PRN EtoH withdrawal UDS pending EtOH <10 Prophylaxis: GI ppx: protonix DVT ppx: SCD Patient was seen examined and discussed w/ attending physician Dr. Pari Hdez DO PGY1 - Internal Medicine Pasteurizer Helper - Hospital Progress Note <Pari Hdez R - Last Filed: 06/06/18 15:34> Objective - Vital Signs/Intake and Output Vital Signs (last 24 hours): Temp Pulse Resp BP Pulse Ox 98.2 F 70 18 121/84 97 06/06/18 07:00 06/06/18 07:00 06/06/18 07:00 06/06/18 10:05 06/06/18 07:00 Intake and Output: 06/06/18 06/06/18 06:59 18:59 Intake Total 420 Balance 420 - Medications Medications: Current Medications Folic Acid (Folic Acid) 1 mg PO DAILY [facility] Last Admin: 06/06/18 10:05 Dose: 1 mg Furosemide (Lasix) 40 mg PO DAILY [facility] Last Admin: 06/06/18 10:05 Dose: 40 mg Ceftriaxone Sodium (Rocephin 1 Gram Ivpb) 1 gm in 100 mls @ 100 mls/hr IVPB DAILY [facility]; Protocol Last Admin: 06/06/18 10:04 Dose: 100 mls/hr Lactulose (Enulose) 20 gm PO HS [facility] Last Admin: 06/05/18 21:29 Dose: 20 gm Lorazepam (Ativan) 1 mg PO ONCE PRN; Protocol PRN Reason: Anxiety Multivitamins/Minerals (Therapeutic-M Tab) 1 tab PO 0800 [facility] Last Admin: 06/06/18 08:04 Dose: 1 tab Spironolactone (Aldactone) 100 mg PO DAILY [facility] Last Admin: 06/06/18 10:06 Dose: 100 mg Thiamine HCl (Vitamin B1 Tab) 50 mg PO DAILY [facility] Last Admin: 06/06/18 10:09 Dose: 50 mg - Labs Labs: 06/06/18 06:30 06/06/18 06:30 PT 15.9 SECONDS (9.4-12.5) H 06/06/18 06:30 INR 1.37 06/06/18 06:30 APTT 35.2 Seconds (25.1-36.5) 06/06/18 06:30 Attending/Attestation - Attestation I have personally seen and examined this patient.: Yes I have fully participated in the care of the patient.: Yes I have reviewed all pertinent clinical information, including history, physical exam and plan: Yes Notes (Text): Patient seen and examined by me with resident at 10 AM on 06/05/18. Case including HPI, physical exam, and assessment and plan discussed with resident. Agree with above with following additions/corrections. Patient is a 37 year old male with past medical history significant for alcohol abuse and pancreatitis that presented to the emergency room with recurrent abdominal distention. Patient states he is feeling better. He states he has a little bit of abdominal pain. No radiation of the pain. No shortness of breath or chest pain. No nausea or vomiting. No dizziness, headaches, or lightheadedness. No dysuria. No fevers or chills. No diarrhea or constipation. Physical exam: General: Awake and alert sitting up in bed in no acute distress HEENT: Normocephalic, atraumatic. Extraocular muscles intact, pupils equal and reactive, positive scleral icterus. Oropharynx is pink and moist. Neck is sup ple. Cardiovascular: Regular rhythm. Normal S1 and S2. No murmurs, rubs, or gallops appreciated Pulmonary: Normal respiratory effort. No rhonchi, rales, or wheezing appreciated. Gastrointestinal: Soft. Positive distention. Mild generalized tenderness. Positive bowel sounds all 4 quadrants. No guarding. Musculoskeletal: Moves all extremities. No edema appreciated. No calf tenderness. No CVA tenderness. Central nervous system: AAOx 3 Dermatologic: Skin warm and dry. Positive jaundice Assessment and plan: Patient is a 37 year old male with past medical history significant for alcohol abuse and pancreatitis that presented to the emergency room with recurrent abdominal distention. 1. Abdominal distention. Secondary to ascite seocondary to decompensated alcholic liver cirrhosis. GI following, recommendations appreciated. IR consulted for paracentesis. Continue lasix and aldactone. Continue lactulose. Continue Rocephin until SBP ruled out. NO need for CT abd/pelvis per GI. No leukocytosis. Patient afebrile. Will need repeat liver CT in July 2018. 2. Hyperbilirubinemia. Jaundice. Secondary to ascites seocondary to decompensated alcholic liver cirrhosis. Continue to monitor. 3. History of alcohol abuse. Patient counseled on staying off alcohol. Continue thiamine, folic acid, and multivitamin. 4. Tobacco abuse. Patient counseled on cessation. 5. Patient is a full code Case was discussed in detail with the patient regarding current diagnosis and treatment plan. All questions answered.
[2018-06-06 07:20] LABS: BASO # 0.02 K/mm3 (0.0-2.0); BASO % 0.3 % (0.0-3.0); EOS # 0.1 (0.0-0.7); EOS % 1.7 % (1.5-5.0); GRAN # 3.88 (1.4-6.5); GRAN % 56.3 % (50.0-68.0); HEMOGLOBIN 11.9 g/dL (14.0-18.0); LYMPH # 2.4 (1.2-3.4); LYMPH % 34.4 % (22.0-35.0); MEAN CELL VOLUME 97.8 fl (80.0-105.0); MEAN CORPUSCULAR HGB CONC 33.7 g/dl (31.0-37.0); MEAN PLATELET VOLUME 10.2 fl (7.0-11.0); MONO # 0.5 (0.1-0.6); MONO % 7.3 % (1.0-6.0); RBC 3.61 10^6/uL (3.5-6.1); RED CELL DISTRIBUTION WIDTH 12.6 % (11.5-14.5); WHITE BLOOD COUNT 6.9 10^3/uL (4.5-11.0)
[2018-06-06 07:32] LABS: INR 1.37; PARTIAL THROMBOPLASTIN TIME 35.2 Seconds (25.1-36.5); PROTHROMBIN TIME 15.9 SECONDS (9.4-12.5)
[2018-06-06 07:33] LABS: ALB/GLOB RATIO 0.7 (1.1-1.8); ALBUMIN 3.2 g/dL (3.0-4.8); ALT/SGPT 23 U/L (7-56); AST/SGOT 43 U/L (17-59); BLOOD UREA NITROGEN 10 mg/dL (7-21); CALCIUM 8.6 mg/dL (8.4-10.5); GFR NON-AFRICAN AMERICAN > 60
[2018-06-06] MEDS: Multivitamin With Minerals Tab PO SCH (08:04)
[2018-06-06 08:09] VITALS: BP 121/84; PULSE 70; TEMP 98.2; O2SAT 97
[2018-06-06] MEDS: cefTRIAXone 1 gm 1 GM/100 ML BAG IVPB SCH (10:04)
[2018-06-06 13:45] LABS: BODY FLUID TYPE PERITONEAL
[2018-06-06 14:01] LABS: BF GROSS APPEARANCE CLEAR (CLEAR)
--- NOTE | 2018-06-06 14:07 | PCM.SURG1 ---
Surgeon's Initial Post Op Note - Surgeon's Notes Surgeon: Marcus Murray MD Staff Nurse [facility] Resource Team: NONE Type of Anesthesia: Local Pre-Operative Diagnosis: Ascites Operative Findings: Moderate Ascites Post-Operative Diagnosis: Ascites Operation Performed: US guided paracentesis Specimen/Specimens Removed: 7100 cc of yellow fluid Estimated Blood Loss: EBL {In ML}: 0 Blood Products Given: N/A Drains Used: No Drains Post-Op Condition: Fair Date of Surgery/Procedure: 06/06/18 Time of Surgery/Procedure: 12:55
--- NOTE | 2018-06-06 14:14 | US ---
Date of Procedure: 06/06/2018 PROCEDURE: Ultrasound-guided paracentesis, CPT 40671 Medications: 7 cc 1% Lidocaine HISTORY: Ascites, abdominal pain, cirrhosis TECHNIQUE: Following informed consent , the patient was placed supine on the stretcher and the site was marked. A limited abdominal ultrasound was performed that showed a large amount of intra-abdominal fluid. Procedural time out was called and the Pt's abdomen was marked and prepped and draped in the usual sterile fashion. Ultrasound-guided large volume paracentesis performed. A total of 7.1 liters of straw colored fluid was removed without complication. IMPRESSION: Ultrasound-guided large volume paracentesis.
[2018-06-06] MEDS ORDERED: Albumin Human 25% (12.5 gm/50 ml) IV ONE (14:15)
[2018-06-06 15:21] LABS: BODY FLUID TOTAL COUNT 100 (0-0)
--- NOTE | 2018-06-06 16:50 | CP.PCM.DIS ---
<HdezCuco carpio - Last Filed: 06/06/18 23:02> Provider - Provider Date of Admission: 06/03/18 22:47 Attending physician: Shaka Kelly MD Primary care physician: Melchor Consults: 06/04/18 02:36 Physician Consult Routine Comment: Consulting Provider: Roc Huitron Consulting Physician: Roc Huitron Reason for Consult: ascites 06/04/18 10:39 Consult [Physician Consult] Routine Comment: Consulting Provider: Roc Huitron Consulting Physician: Roc Huitron Reason for Consult: Therapeutic Para, pls check cell count Time Spent in preparation of Discharge (in minutes): 45 Diagnosis - Discharge Diagnosis (1) Alcoholic cirrhosis of liver with ascites Status: Acute Priority: High (2) Abdominal pain Status: Acute (3) Alcohol abuse Status: Chronic (4) Cirrhosis Status: Chronic Hospital Course - Lab Results Lab Results: Micro Results 06/04/18 06:00 Blood Blood Culture - Preliminary NO GROWTH AFTER 48 HOURS Most Recent Lab Values WBC 6.9 10^3/uL (4.5-11.0) 06/06/18 06:30 RBC 3.61 10^6/uL (3.5-6.1) 06/06/18 06:30 Hgb 11.9 g/dL (14.0-18.0) L 06/06/18 06:30 Hct 35.3 % (42.0-52.0) L 06/06/18 06:30 MCV 97.8 fl (80.0-105.0) 06/06/18 06:30 MCH 33.0 pg (25.0-35.0) 06/06/18 06:30 MCHC 33.7 g/dl (31.0-37.0) 06/06/18 06:30 RDW 12.6 % (11.5-14.5) 06/06/18 06:30 Plt Count 186 10^3/uL (120.0-450.0) 06/06/18 06:30 MPV 10.2 fl (7.0-11.0) 06/06/18 06:30 Gran % 56.3 % (50.0-68.0) 06/06/18 06:30 Lymph % (Auto) 34.4 % (22.0-35.0) 06/06/18 06:30 [place] % (Auto) 7.3 % (1.0-6.0) H 06/06/18 06:30 Eos % (Auto) 1.7 % (1.5-5.0) 06/06/18 06:30 Baso % (Auto) 0.3 % (0.0-3.0) 06/06/18 06:30 Gran # 3.88 (1.4-6.5) 06/06/18 06:30 Lymph # (Auto) 2.4 (1.2-3.4) 06/06/18 06:30 [place] # (Auto) 0.5 (0.1-0.6) 06/06/18 06:30 Eos # (Auto) 0.1 (0.0-0.7) 06/06/18 06:30 Baso # (Auto) 0.02 K/mm3 (0.0-2.0) 06/06/18 06:30 PT 15.9 SECONDS (9.4-12.5) H 06/06/18 06:30 INR 1.37 06/06/18 06:30 APTT 35.2 Seconds (25.1-36.5) 06/06/18 06:30 pO2 49 mm/Hg (30-55) 06/03/18 22:01 VBG pH 7.41 (7.32-7.43) 06/03/18 22:01 VBG pCO2 39.0 (40-60) L 06/03/18 22:01 VBG HCO3 24.7 mmol/l (21-28) 06/03/18 22:01 VBG Total CO2 25.9 mmol.L (22-28) 06/03/18 22:01 VBG O2 Sat (Calc) 88.3 % (40-65) H 06/03/18 22:01 VBG Base Excess 0.1 mmol/L (0.0-2.0) 06/03/18 22:01 VBG Potassium 3.6 mmol/L (3.6-5.2) 06/03/18 22:01 Sodium 137.0 mmol/L (132-148) 06/03/18 22:01 Chloride 104.0 mmol/L (98-107) 06/03/18 22:01 Glucose 97 mg/dl (75-110) 06/03/18 22:01 Lactate 1.5 mmol/L (0.7-2.1) 06/03/18 22:01 FiO2 21.0 % 06/03/18 22:01 Sodium 137 mmol/L (132-148) 06/06/18 06:30 Potassium 3.8 mmol/L (3.6-5.0) 06/06/18 06:30 Chloride 107 mmol/L (98-107) 06/06/18 06:30 Carbon Dioxide 25 mmol/L (21-33) 06/06/18 06:30 Anion Gap 9 (10-20) L 06/06/18 06:30 BUN 10 mg/dL (7-21) 06/06/18 06:30 Creatinine 0.6 mg/dl (0.8-1.5) L 06/06/18 06:30 Est GFR ( Amer) > 60 06/06/18 06:30 Est GFR (Non-Af Amer) > 60 06/06/18 06:30 Random Glucose 97 mg/dL (70-110) 06/06/18 06:30 Calcium 8.6 mg/dL (8.4-10.5) 06/06/18 06:30 Phosphorus 4.3 mg/dL (2.5-4.5) 06/04/18 08:30 Magnesium 1.7 mg/dL (1.7-2.2) 06/04/18 08:30 Total Bilirubin 3.2 mg/dL (0.2-1.3) H 06/06/18 06:30 AST 43 U/L (17-59) 06/06/18 06:30 ALT 23 U/L (7-56) 06/06/18 06:30 Alkaline Phosphatase 249 U/L (38-126) H 06/06/18 06:30 Ammonia 36 umol/L (9-33) H 06/05/18 10:50 Total Protein 7.4 g/dL (5.8-8.3) 06/06/18 06:30 Albumin 3.2 g/dL (3.0-4.8) 06/06/18 06:30 Globulin 4.2 gm/dL 06/06/18 06:30 Albumin/Globulin Ratio 0.7 (1.1-1.8) L 06/06/18 06:30 Venous Blood Potassium 3.6 mmol/L (3.6-5.2) 06/03/18 22:01 Fluid Source Peritoneal 06/04/18 10:40 Fluid Appearance Clear (CLEAR) 06/04/18 10:40 Fluid WBC 314.0 /uL (0.0-300.0) H 06/04/18 10:40 Fluid RBC 25.0 /uL (0.0-0.0) H 06/04/18 10:40 Fluid Tot Cell Count 100 (0-0) H 06/04/18 10:40 Fluid Mononuclear Cell 93.0 % (0-0) H 06/04/18 10:40 Fl Polymorphonucl Cell 7.0 % (0-0) H 06/04/18 10:40 Fluid Comment TEST NOT PERFORMED 06/04/18 10:40 Alcohol, Quantitative < 10 mg/dL (0-10) 06/03/18 22:01 - Hospital Course Hospital Course: Cuco Hdez DO PGY1 Internal Medicine Director Quality Assurance - Hospital Discharge Summary Disclaimer: please note this is a brief synopsis of the patient's hospital course; for full hospital record please refer to EMR 37 y/o with PMHx of alcohol abuse and pancreatitis presented to [facility] [place] [facility] on 06/04 with 3 weeks history of worsening abdominal pressure, abdominal distension, jaundice. Patient was found to have ascites 2/2 EtOH Cirrhosis. Reported that his last drink was 9 weeks prior to admission. Patient was subsequently admitted for management of Abdominal Distension most likely 2/2 ascities in setting of EtOH Cirrhosis. His MELD-Na - 16; <2% 90 day mortality, and Maddrey's - 22; no steroid therapy recommended during course. IR consulted and GI consulted. IR was unable to tap patient until 06/06. Patient was monitored for worsening symptoms; started on low salt diet, lasix, spirnolactone, rocephin for SBP ppx, and lactulose as per GI recommendations. Patient did not show any signs of withdrawal or hepatic encephalopathy. Patient underwent paracenthesis 06/06; 7 liters clear fluid removed; fluid analysis was less concerning signs for SBP. Give >5L removal patient was given albumin infusion. BP monitored and patient remained normotensive prior to discharge. Prior to discharge post pracentesis, patient reported felt much improved and less heaviness in his abdomen. Patient was seen ambulating well. Denied any abd pain, n/v/d/c, dizziness. He was given follow up instruction w/ [facility] regarding potential for liver transplant and informed to follow up w/ his primary care doctor. Patient did not appear to have a good understanding of his disease despite attempts at educating patient about necessity of compliance to diet and medication; as well as abstinence from EtOH. Patient is medically optimized for discharge at this time. Discharge Exam - Head Exam Head Exam: ATRAUMATIC, NORMOCEPHALIC - Eye Exam Eye Exam: EOMI, PERRL, Scleral icterus - Respiratory Exam Respiratory Exam: Clear to PA & Lateral, NORMAL BREATHING PATTERN, UNREMARKABLE - Cardiovascular Exam Cardiovascular Exam: REGULAR RHYTHM, RRR, +S1, +S2. absent: Systolic Murmur - GI/Abdominal Exam Additional comments: Improved distension after paracentesis; fluid wave sign diminished Dressing in place- CDI - Extremities Exam Extremities exam: normal capillary refill, pedal pulses present (2+ DP BL ) - Neurological Exam Neurological exam: Alert, CN II-XII Intact, Normal Gait, Oriented x3 - Psychiatric Exam Psychiatric exam: Normal Affect, Normal Mood - Skin Additional comments: Jaundiced Discharge Plan - Discharge Medications Prescriptions: Spironolactone [Aldactone] 100 mg PO DAILY 30 Days #30 tab - Follow Up Plan Condition: GOOD Disposition: HOME/ ROUTINE Instructions: Cirrhosis (DC), Alcohol Abuse and Alcoholism (DC), Albumin, Abdominal Paracentesis (DC) Additional Instructions: Please follow up with your primary care doctor within 3-5 days of discharge Please ask your primary care doctor for a referral to [facility]) hepatology (Liver) department for GI follow up as well as for potential liver transplant. Please stop consuming alcohol Please start eating a low salt diet Please Note the DOSE of your spironolactone has changed Please begin taking Spironolactone 100 daily Please continue taking all other home prescriptions. If you begin experiencing fevers, chills, abdominal pain, nausea, or new concerning symptoms arise; please go to the nearest emergency department immediately Referrals: Inocencio Zepeda MD [Staff Provider] - Gil Gomez MD, PhD [Medical Doctor] - <Shaka Kelly - Last Filed: 06/07/18 12:47> Provider - Provider Date of Admission: 06/03/18 22:47 Attending physician: Shaka Kelly MD Consults: 06/04/18 02:36 Physician Consult Routine Comment: Consulting Provider: Roc Huitron Consulting Physician: Roc Huitron Reason for Consult: ascites 06/04/18 10:39 Consult [Physician Consult] Routine Comment: Consulting Provider: Roc Huitron Consulting Physician: Roc Huitron Reason for Consult: Therapeutic Para, pls check cell count Hospital Course - Lab Results Lab Results: Micro Results 06/04/18 06:00 Blood Blood Culture - Preliminary NO GROWTH AFTER 3 DAYS Most Recent Lab Values WBC 6.9 10^3/uL (4.5-11.0) 06/06/18 06:30 RBC 3.61 10^6/uL (3.5-6.1) 06/06/18 06:30 Hgb 11.9 g/dL (14.0-18.0) L 06/06/18 06:30 Hct 35.3 % (42.0-52.0) L 06/06/18 06:30 MCV 97.8 fl (80.0-105.0) 06/06/18 06:30 MCH 33.0 pg (25.0-35.0) 06/06/18 06:30 MCHC 33.7 g/dl (31.0-37.0) 06/06/18 06:30 RDW 12.6 % (11.5-14.5) 06/06/18 06:30 Plt Count 186 10^3/uL (120.0-450.0) 06/06/18 06:30 MPV 10.2 fl (7.0-11.0) 06/06/18 06:30 Gran % 56.3 % (50.0-68.0) 06/06/18 06:30 Lymph % (Auto) 34.4 % (22.0-35.0) 06/06/18 06:30 [place] % (Auto) 7.3 % (1.0-6.0) H 06/06/18 06:30 Eos % (Auto) 1.7 % (1.5-5.0) 06/06/18 06:30 Baso % (Auto) 0.3 % (0.0-3.0) 06/06/18 06:30 Gran # 3.88 (1.4-6.5) 06/06/18 06:30 Lymph # (Auto) 2.4 (1.2-3.4) 06/06/18 06:30 [place] # (Auto) 0.5 (0.1-0.6) 06/06/18 06:30 Eos # (Auto) 0.1 (0.0-0.7) 06/06/18 06:30 Baso # (Auto) 0.02 K/mm3 (0.0-2.0) 06/06/18 06:30 PT 15.9 SECONDS (9.4-12.5) H 06/06/18 06:30 INR 1.37 06/06/18 06:30 APTT 35.2 Seconds (25.1-36.5) 06/06/18 06:30 pO2 49 mm/Hg (30-55) 06/03/18 22:01 VBG pH 7.41 (7.32-7.43) 06/03/18 22:01 VBG pCO2 39.0 (40-60) L 06/03/18 22:01 VBG HCO3 24.7 mmol/l (21-28) 06/03/18 22:01 VBG Total CO2 25.9 mmol.L (22-28) 06/03/18 22:01 VBG O2 Sat (Calc) 88.3 % (40-65) H 06/03/18 22:01 VBG Base Excess 0.1 mmol/L (0.0-2.0) 06/03/18 22:01 VBG Potassium 3.6 mmol/L (3.6-5.2) 06/03/18 22:01 Sodium 137.0 mmol/L (132-148) 06/03/18 22:01 Chloride 104.0 mmol/L (98-107) 06/03/18 22:01 Glucose 97 mg/dl (75-110) 06/03/18 22:01 Lactate 1.5 mmol/L (0.7-2.1) 06/03/18 22:01 FiO2 21.0 % 06/03/18 22:01 Sodium 137 mmol/L (132-148) 06/06/18 06:30 Potassium 3.8 mmol/L (3.6-5.0) 06/06/18 06:30 Chloride 107 mmol/L (98-107) 06/06/18 06:30 Carbon Dioxide 25 mmol/L (21-33) 06/06/18 06:30 Anion Gap 9 (10-20) L 06/06/18 06:30 BUN 10 mg/dL (7-21) 06/06/18 06:30 Creatinine 0.6 mg/dl (0.8-1.5) L 06/06/18 06:30 Est GFR ( Amer) > 60 06/06/18 06:30 Est GFR (Non-Af Amer) > 60 06/06/18 06:30 Random Glucose 97 mg/dL (70-110) 06/06/18 06:30 Calcium 8.6 mg/dL (8.4-10.5) 06/06/18 06:30 Phosphorus 4.3 mg/dL (2.5-4.5) 06/04/18 08:30 Magnesium 1.7 mg/dL (1.7-2.2) 06/04/18 08:30 Total Bilirubin 3.2 mg/dL (0.2-1.3) H 06/06/18 06:30 AST 43 U/L (17-59) 06/06/18 06:30 ALT 23 U/L (7-56) 06/06/18 06:30 Alkaline Phosphatase 249 U/L (38-126) H 06/06/18 06:30 Ammonia 36 umol/L (9-33) H 06/05/18 10:50 Total Protein 7.4 g/dL (5.8-8.3) 06/06/18 06:30 Albumin 3.2 g/dL (3.0-4.8) 06/06/18 06:30 Globulin 4.2 gm/dL 06/06/18 06:30 Albumin/Globulin Ratio 0.7 (1.1-1.8) L 06/06/18 06:30 Venous Blood Potassium 3.6 mmol/L (3.6-5.2) 06/03/18 22:01 Fluid Source Peritoneal 06/04/18 10:40 Fluid Appearance Clear (CLEAR) 06/04/18 10:40 Fluid WBC 314.0 /uL (0.0-300.0) H 06/04/18 10:40 Fluid RBC 25.0 /uL (0.0-0.0) H 06/04/18 10:40 Fluid Tot Cell Count 100 (0-0) H 06/04/18 10:40 Fluid Mononuclear Cell 93.0 % (0-0) H 06/04/18 10:40 Fl Polymorphonucl Cell 7.0 % (0-0) H 06/04/18 10:40 Fluid Comment TEST NOT PERFORMED 06/04/18 10:40 Alcohol, Quantitative < 10 mg/dL (0-10) 06/03/18 22:01 Attending/Attestation - Attestation I have personally seen and examined this patient.: Yes I have fully participated in the care of the patient.: Yes I have reviewed all pertinent clinical information, including history, physical exam and plan: Yes Notes (Text): 06/07/18 12:43 attending note; Patient seen and examined with resident. Patient is a 37 year old male with past medical history significant for alcohol abuse and pancreatitis that presented to the emergency room with recurrent abdominal distention. 1. Abdominal distention. ascite seocondary to decompensated alcholic liver cirrhosis. Status post paracentesis today. IV albumen given. GI evaluation appreciated. patient is referred to [facility] hepatology clinic for further follow-up. Continue lasix and aldactone. Continue lactulose. Initial labs did not show bacterial peritonitis. Cultures pending. 2. Hyperbilirubinemia. Jaundice. Secondary to ascites seocondary to decompensated alcholic liver cirrhosis. Continue to monitor. 3. History of alcohol abuse. patient stopped alcohol abuse. Continue thiamine, folic acid, and multivitamin. 4. Tobacco abuse. Patient counseled on cessation. the diagnosis, follow-up plan discussed with patient in detail. Patient will follow up with PMD . Case was discussed in detail with the patient regarding current diagnosis and treatment plan. All questions answered. 06/07/18 12:45 06/07/18 12:47
== END 2018-06-06 20:22 | disposition home or self-care (01) ==
LOC: ED 21:03 → ERH 22:47 → 5RSO 23:46
PROVIDERS: ADMIT Hospitalist; ATTEND Internal Medicine
PROC: BW40ZZZ Ultrasonography of Abdomen (ICD-10-PCS; 2018-06-06)
PROC: 0W9G3ZZ Drainage of Peritoneal Cavity, Percutaneous Approach (ICD-10-PCS; principal; 2018-06-06 12:00)
DX: K70.31 Alcoholic cirrhosis of liver with ascites (principal); K70.11 Alcoholic hepatitis with ascites; F10.10 Alcohol abuse, uncomplicated; Z87.19 Personal history of other diseases of the digestive system; G93.40 Encephalopathy, unspecified; F17.210 Nicotine dependence, cigarettes, uncomplicated; Z91.14 Patient's other noncompliance with medication regimen